=== PATIENT | female | born 1935 | race African-American/Black ===

== ENCOUNTER 2017-09-23 22:18 | Inpatient (IN) | payer MEDICARE, BC ==
[2017-09-24] MEDS ORDERED: ONDANSETRON 4 MG INJ IV (04:00)
[2017-09-24] MEDS ORDERED: NACL 0.9% 3 ML SYG IV (04:00)
[2017-09-24] MEDS ORDERED: NITROGLYCERIN (SL) 0.4 MG TAB SL (04:00)
[2017-09-24] MEDS: PANTOPRAZOLE (EC) 40 MG TAB PO (06:37)
[2017-09-24] MEDS: ALBUTEROL HFA 8 GM INHALER INH (06:38)
[2017-09-24 07:20] LABS: ADD MAN DIFF? NO
[2017-09-24 07:31] LABS: WHITE BLOOD COUNT 3.7 10^3/ul (4.8-10.8)
[2017-09-24 07:31] LABS: BASOPHILS % 0.8 % (0.0-2.0); EOSINOPHILS # 0.2 10^3/ul (0.0-0.5); EOSINOPHILS % 4.3 % (0.0-7.0); HEMATOCRIT 39.5 % (37.0-47.0); HEMOGLOBIN 12.6 g/dl (12.0-16.0); LYMPHOCYTES # 0.9 10^3/ul (0.8-2.9); LYMPHOCYTES % 24.3 % (15.0-51.0); MEAN CORPUSCULAR HEMOGLOBIN 26.6 pg (29.0-33.0); MEAN CORPUSCULAR HGB CONC 31.9 g/dl (32.0-37.0); MEAN CORPUSCULAR VOLUME 83.3 fl (82.0-101.0); MEAN PLATELET VOLUME 12.1 fl (7.4-10.4); MONOCYTE # 0.7 10^3/ul (0.3-0.9); MONOCYTES % 18.4 % (0.0-11.0); NEUTROPHIL # 1.9 10^3/ul (1.6-7.5); NEUTROPHILS % 51.9 % (39.0-77.0); PLATELET COUNT 144 10^3/UL (140-415); RED BLOOD COUNT 4.74 10^6/ul (4.20-5.40); RED CELL DISTRIBUTION WIDTH 15.9 % (11.5-14.5)
[2017-09-24 07:47] LABS: CREATINE KINASE 46 IU/L (23-200)
[2017-09-24 08:00] LABS: CK INDEX 1.4; CK-MB 0.65 ng/ml (0.0-2.4); TROPONIN-I 0.025 ng/ml (0.000-0.120)
[2017-09-24 08:05] LABS: MAGNESIUM 1.8 mg/dl (1.7-2.5)
[2017-09-24 08:08] LABS: ALANINE AMINOTRANSFERASE 22 IU/L (13-69); ALBUMIN 3.4 g/dl (3.3-4.9); ALKALINE PHOSPHATASE 94 IU/L (42-121); ANION GAP 14 (8-16); ASPARTATE AMINO TRANSFERASE 18 IU/L (15-46); BILIRUBIN,INDIRECT 0.3 mg/dl (0-1.1); BILIRUBIN,TOTAL 0.3 mg/dl (0.2-1.3); BLOOD UREA NITROGEN 43 mg/dl (7-20); CALCIUM 9.2 mg/dl (8.4-10.2); CARBON DIOXIDE 31 mmol/L (21-31); CHLORIDE 97 mmol/L (97-110); CHOL/HDL RATIO 2.6 RATIO; CHOLESTEROL 132 mg/dl (100-200); CREATININE 1.67 mg/dl (0.44-1.00); GLUCOSE 155 mg/dl (70-220); HDL CHOLESTEROL 49 mg/dl (33-92); LDL CHOLESTEROL,CALCULATED 65 mg/dl; POTASSIUM 3.9 mmol/L (3.5-5.1); SODIUM 138 mmol/L (135-144); TRIGLYCERIDES 91 mg/dl (0-149)
[2017-09-24] MEDS: METHYLPREDNISOLONE 125 MG INJ IV ×3 (08:52→22:26)
[2017-09-24] MEDS: ASPIRIN 81 MG TAB PO (08:54)
[2017-09-24] MEDS: LISINOPRIL 20 MG TAB PO (08:55)
[2017-09-24] MEDS: METOPROLOL 25 MG TAB PO ×2 (08:55→20:40)
[2017-09-24] MEDS: NIFEdipine (XL) 60 MG TAB PO (08:55)
[2017-09-24] MEDS: HEPARIN 5,000 UNIT/0.5 ML VIAL SC ×2 (08:58→20:38)
[2017-09-24] MEDS ORDERED: metFORMIN 500 MG TAB PO (09:00)
[2017-09-24 10:46] LABS: HEMOGLOBIN A1C 8.2 % (0-5.9)
[2017-09-24] MEDS ORDERED: GLUCOSE GEL 15 GRAM TUBE PO (11:00)
[2017-09-24] MEDS ORDERED: GLUCOSE GEL 15 GRAM TUBE BUCCAL (11:00)
[2017-09-24] MEDS ORDERED: GLUCAGON 1 MG INJ IM (11:00)
[2017-09-24] MEDS ORDERED: DEXTROSE 50% 50 ML SYRINGE IV (11:00)
[2017-09-24 11:06] LABS: CREATINE KINASE 45 IU/L (23-200)
[2017-09-24 11:18] LABS: CK INDEX 1.6; CK-MB 0.71 ng/ml (0.0-2.4); TROPONIN-I 0.022 ng/ml (0.000-0.120)
[2017-09-24] MEDS: DIGOXIN 0.125 MG TAB PO (12:04)
[2017-09-24] MEDS: FAMOTIDINE 20 MG TAB PO (12:04)
[2017-09-24] MEDS: INSULIN ASPART [NOVOLOG] 3 ML PEN SC ×6 (12:09→20:47)
[2017-09-24 16:43] LABS: ADD UMIC YES; UR ASCORBIC ACID NEGATIVE (NEGATIVE); UR BACTERIA FEW /HPF (NONE SEEN); UR BILIRUBIN (Dip) NEGATIVE (NEGATIVE); UR BLOOD (Dip) NEGATIVE (NEGATIVE); UR CLARITY CLEAR (CLEAR); UR COLOR YELLOW (YELLOW); UR GLUCOSE (Dip) 3+ mg/dL (NEGATIVE); UR KETONES (Dip) NEGATIVE (NEGATIVE); UR LEUKOCYTE ESTERASE (Dip) TRACE Leu/ul (NEGATIVE); UR NITRITE (Dip) NEGATIVE (NEGATIVE); UR RBC 0 /HPF (0-5); UR SPECIFIC GRAVITY (Dip) 1.015 (1.003-1.030); UR SQUAMOUS EPITHELIAL CELL FEW /HPF (FEW); UR TOTAL PROTEIN (Dip) NEGATIVE (NEGATIVE); UR UROBILINOGEN (Dip) 1+ mg/dL (NEGATIVE); UR WBC 3 /HPF (0-5)
[2017-09-24 16:51] LABS: SODIUM,URINE RANDOM 45 mmol/L (30-90)
[2017-09-24 16:53] LABS: CREATININE,URINE RANDOM 82.53 mg/dl (20-320)
[2017-09-24 18:46] LABS: TROPONIN-I < 0.012 ng/ml (0.000-0.120)
[2017-09-24 18:47] LABS: DIGOXIN 1.1 ng/ml (1.0-2.0)
[2017-09-24] MEDS ORDERED: INSULIN GLARGINE [LANtus] 3 ML PEN SC (20:00)
[2017-09-24] MEDS: INSULIN GLARGINE [LANtus] 3 ML PEN SC (20:31)
[2017-09-24] MEDS: ALBUTEROL/IPRATROPIUM (NEB) 3 ML AMP HHN (22:44)
[2017-09-25 01:39] LABS: TROPONIN-I 0.016 ng/ml (0.000-0.120)
[2017-09-25] MEDS ORDERED: ACCU-CHEK XX (02:00)
[2017-09-25] MEDS: ACCU-CHEK XX (02:57)
[2017-09-25 05:06] LABS: PROTEIN, TOTAL 5.9 g/dL (6.1-8.1)
[2017-09-25] MEDS: METHYLPREDNISOLONE 125 MG INJ IV (06:31)
[2017-09-25 06:50] LABS: ADD MAN DIFF? NO
[2017-09-25 06:52] LABS: HEMATOCRIT 39.2 % (37.0-47.0); HEMOGLOBIN 12.4 g/dl (12.0-16.0); LYMPHOCYTES # 0.7 10^3/ul (0.8-2.9); LYMPHOCYTES % 12.8 % (15.0-51.0); MEAN CORPUSCULAR HEMOGLOBIN 26.2 pg (29.0-33.0); MEAN CORPUSCULAR HGB CONC 31.6 g/dl (32.0-37.0); MEAN CORPUSCULAR VOLUME 82.9 fl (82.0-101.0); MEAN PLATELET VOLUME 12.5 fl (7.4-10.4); MONOCYTE # 0.1 10^3/ul (0.3-0.9); MONOCYTES % 2.7 % (0.0-11.0); NEUTROPHIL # 4.3 10^3/ul (1.6-7.5); NEUTROPHILS % 84.1 % (39.0-77.0); PLATELET COUNT 161 10^3/UL (140-415); RED BLOOD COUNT 4.73 10^6/ul (4.20-5.40); RED CELL DISTRIBUTION WIDTH 15.6 % (11.5-14.5)
[2017-09-25 06:52] LABS: WHITE BLOOD COUNT 5.2 10^3/ul (4.8-10.8)
[2017-09-25 07:24] LABS: ALANINE AMINOTRANSFERASE 21 IU/L (13-69); ALBUMIN 3.4 g/dl (3.3-4.9); ALBUMIN/GLOBULIN RATIO 1.06; ALKALINE PHOSPHATASE 101 IU/L (42-121); ANION GAP 16 (8-16); ASPARTATE AMINO TRANSFERASE 17 IU/L (15-46); BILIRUBIN,INDIRECT 0.3 mg/dl (0-1.1); BILIRUBIN,TOTAL 0.3 mg/dl (0.2-1.3); BLOOD UREA NITROGEN 47 mg/dl (7-20); CALCIUM 9.5 mg/dl (8.4-10.2); CARBON DIOXIDE 25 mmol/L (21-31); CHLORIDE 100 mmol/L (97-110); CREATININE 1.48 mg/dl (0.44-1.00); POTASSIUM 4.6 mmol/L (3.5-5.1); SODIUM 136 mmol/L (135-144); TOTAL PROTEIN 6.6 g/dl (6.1-8.1)
[2017-09-25 07:25] LABS: TROPONIN-I 0.019 ng/ml (0.000-0.120)
[2017-09-25 07:29] LABS: GLUCOSE 427 mg/dl (70-220)
[2017-09-25 07:48] LABS: PHOSPHORUS 3.6 mg/dl (2.5-4.9)
[2017-09-25 07:48] LABS: MAGNESIUM 2.1 mg/dl (1.7-2.5)
[2017-09-25] MEDS: INSULIN ASPART [NOVOLOG] 3 ML PEN SC ×7 (08:34→20:16)
[2017-09-25] MEDS: NIFEdipine (XL) 60 MG TAB PO (08:35)
[2017-09-25] MEDS: HEPARIN 5,000 UNIT/0.5 ML VIAL SC ×2 (08:35→20:15)
[2017-09-25] MEDS: FAMOTIDINE 20 MG TAB PO (08:35)
[2017-09-25] MEDS: ASPIRIN 81 MG TAB PO (08:36)
[2017-09-25] MEDS: METOPROLOL 25 MG TAB PO ×2 (08:36→20:13)
[2017-09-25] MEDS: morphine 2 MG INJ IV (10:15)
[2017-09-25] MEDS: ALBUTEROL/IPRATROPIUM (NEB) 3 ML AMP HHN ×2 (10:20→23:39)
[2017-09-25] MEDS: DIGOXIN 0.125 MG TAB PO (12:25)
[2017-09-25] MEDS: ACETAMINOPHEN 325 MG TAB PO (12:26)
[2017-09-25] MEDS: FUROSEMIDE 40 MG INJ IV (14:48)
[2017-09-25] MEDS: INSULIN GLARGINE [LANtus] 3 ML PEN SC (20:16)
[2017-09-25] MEDS: ZOLPIDEM 5 MG TAB PO (23:54)
[2017-09-26] MEDS: ACCU-CHEK XX (02:00)
[2017-09-26 07:04] LABS: ADD MAN DIFF? NO
[2017-09-26 07:10] LABS: BASOPHILS % 0.3 % (0.0-2.0); EOSINOPHILS % 0.4 % (0.0-7.0); HEMATOCRIT 38.3 % (37.0-47.0); HEMOGLOBIN 12.1 g/dl (12.0-16.0); LYMPHOCYTES # 1.8 10^3/ul (0.8-2.9); LYMPHOCYTES % 23.8 % (15.0-51.0); MEAN CORPUSCULAR HGB CONC 31.6 g/dl (32.0-37.0); MEAN CORPUSCULAR VOLUME 82.4 fl (82.0-101.0); MEAN PLATELET VOLUME 12.7 fl (7.4-10.4); MONOCYTE # 0.7 10^3/ul (0.3-0.9); MONOCYTES % 9.6 % (0.0-11.0); NEUTROPHIL # 4.9 10^3/ul (1.6-7.5); NEUTROPHILS % 65.5 % (39.0-77.0); PLATELET COUNT 159 10^3/UL (140-415); RED BLOOD COUNT 4.65 10^6/ul (4.20-5.40); RED CELL DISTRIBUTION WIDTH 15.9 % (11.5-14.5)
[2017-09-26 07:10] LABS: WHITE BLOOD COUNT 7.5 10^3/ul (4.8-10.8)
[2017-09-26 07:45] LABS: ALANINE AMINOTRANSFERASE 20 IU/L (13-69); ALBUMIN 3.1 g/dl (3.3-4.9); ALBUMIN/GLOBULIN RATIO 1.14; ALKALINE PHOSPHATASE 74 IU/L (42-121); ANION GAP 13 (8-16); ASPARTATE AMINO TRANSFERASE 19 IU/L (15-46); BILIRUBIN,INDIRECT 0.1 mg/dl (0-1.1); BILIRUBIN,TOTAL 0.1 mg/dl (0.2-1.3); BLOOD UREA NITROGEN 62 mg/dl (7-20); CALCIUM 9.3 mg/dl (8.4-10.2); CARBON DIOXIDE 31 mmol/L (21-31); CHLORIDE 99 mmol/L (97-110); CREATININE 1.48 mg/dl (0.44-1.00); GLUCOSE 102 mg/dl (70-220); POTASSIUM 3.9 mmol/L (3.5-5.1); SODIUM 139 mmol/L (135-144); TOTAL PROTEIN 5.8 g/dl (6.1-8.1)
[2017-09-26] MEDS: ALBUTEROL/IPRATROPIUM (NEB) 3 ML AMP HHN ×3 (07:55→21:23)
[2017-09-26] MEDS: INSULIN ASPART [NOVOLOG] 3 ML PEN SC ×7 (08:00→20:26)
[2017-09-26] MEDS: HEPARIN 5,000 UNIT/0.5 ML VIAL SC ×2 (08:21→20:24)
[2017-09-26] MEDS: METOPROLOL 25 MG TAB PO ×2 (08:31→20:21)
[2017-09-26] MEDS: FAMOTIDINE 20 MG TAB PO (08:31)
[2017-09-26] MEDS: NIFEdipine (XL) 60 MG TAB PO (08:31)
[2017-09-26] MEDS: ASPIRIN 81 MG TAB PO (08:31)
[2017-09-26] MEDS: predniSONE 20 MG TAB PO (08:32)
[2017-09-26] MEDS ORDERED: METHYLPREDNISOLONE 125 MG INJ IV (09:00)
[2017-09-26] MEDS ORDERED: METHYLPREDNISOLONE 40 MG INJ IV (09:00)
[2017-09-26] MEDS: DIGOXIN 0.125 MG TAB PO (12:13)
[2017-09-26] MEDS: FLUTICASONE/VILANTEROL 100-25 INH (18:00)
[2017-09-26] MEDS: BALSAM PERU/CASTOR OIL 60 GM TUBE TOP (20:21)
[2017-09-26] MEDS: INSULIN GLARGINE [LANtus] 3 ML PEN SC (20:29)
[2017-09-26] MEDS ORDERED: SALMETEROL/FLUTICASONE 250/50 INHA INH (21:00)
[2017-09-27] MEDS: ACCU-CHEK XX (02:00)
[2017-09-27] MEDS: ZOLPIDEM 5 MG TAB PO (02:48)
[2017-09-27] MEDS: ALBUTEROL/IPRATROPIUM (NEB) 3 ML AMP HHN ×5 (04:32→20:55)
[2017-09-27 07:17] LABS: ADD MAN DIFF? NO
[2017-09-27 07:30] LABS: ANION GAP 12 (8-16); BLOOD UREA NITROGEN 58 mg/dl (7-20); CALCIUM 8.8 mg/dl (8.4-10.2); CARBON DIOXIDE 29 mmol/L (21-31); CHLORIDE 104 mmol/L (97-110); CREATININE 1.49 mg/dl (0.44-1.00); GLUCOSE 89 mg/dl (70-220); POTASSIUM 4.2 mmol/L (3.5-5.1); SODIUM 141 mmol/L (135-144)
[2017-09-27 07:33] LABS: BASOPHILS % 0.5 % (0.0-2.0); EOSINOPHILS # 0.1 10^3/ul (0.0-0.5); EOSINOPHILS % 2.1 % (0.0-7.0); HEMATOCRIT 36.4 % (37.0-47.0); HEMOGLOBIN 11.7 g/dl (12.0-16.0); LYMPHOCYTES # 2.2 10^3/ul (0.8-2.9); LYMPHOCYTES % 34.9 % (15.0-51.0); MEAN CORPUSCULAR HEMOGLOBIN 26.6 pg (29.0-33.0); MEAN CORPUSCULAR HGB CONC 32.1 g/dl (32.0-37.0); MEAN CORPUSCULAR VOLUME 82.7 fl (82.0-101.0); MONOCYTE # 0.8 10^3/ul (0.3-0.9); MONOCYTES % 11.9 % (0.0-11.0); NEUTROPHIL # 3.2 10^3/ul (1.6-7.5); NEUTROPHILS % 50.3 % (39.0-77.0); PLATELET COUNT 150 10^3/UL (140-415); RED CELL DISTRIBUTION WIDTH 16.2 % (11.5-14.5)
[2017-09-27 07:33] LABS: WHITE BLOOD COUNT 6.3 10^3/ul (4.8-10.8)
[2017-09-27 07:41] LABS: PHOSPHORUS 3.9 mg/dl (2.5-4.9)
[2017-09-27 07:41] LABS: MAGNESIUM 2.1 mg/dl (1.7-2.5)
[2017-09-27] MEDS: INSULIN ASPART [NOVOLOG] 3 ML PEN SC ×7 (08:00→20:39)
[2017-09-27] MEDS: predniSONE 20 MG TAB PO (09:21)
[2017-09-27] MEDS: NIFEdipine (XL) 60 MG TAB PO (09:22)
[2017-09-27] MEDS: FAMOTIDINE 20 MG TAB PO (09:23)
[2017-09-27] MEDS: METOPROLOL 25 MG TAB PO ×2 (09:23→20:29)
[2017-09-27] MEDS: ASPIRIN 81 MG TAB PO (09:23)
[2017-09-27] MEDS: FLUTICASONE/VILANTEROL 100-25 INH (09:24)
[2017-09-27] MEDS: BALSAM PERU/CASTOR OIL 60 GM TUBE TOP ×2 (09:24→20:31)
[2017-09-27] MEDS: ENOXAPARIN 80 MG/0.8 ML SYG SC (09:31)
[2017-09-27] MEDS: DIGOXIN 0.125 MG TAB PO (12:18)
[2017-09-27 14:21] LABS: CREATININE, RANDOM URINE 97 mg/dL (20-320); PROTEIN/CREATININE RATIO 124 mg/g creat (21-161)
[2017-09-27] MEDS ORDERED: METHYLPREDNISOLONE 125 MG INJ IV (15:30)
[2017-09-27] MEDS: METHYLPREDNISOLONE 125 MG INJ IV (17:22)
[2017-09-27] MEDS: NPH, HUMAN INSULIN ISOPHANE 3ML VIAL SC (17:23)
[2017-09-27] MEDS: INSULIN GLARGINE [LANtus] 3 ML PEN SC (20:38)
[2017-09-27 22:39] LABS: ALBUMIN 3.2 g/dL (3.8-4.8); ALPHA-1-GLOBULINS 0.3 g/dL (0.2-0.3); ALPHA-2-GLOBULINS 0.7 g/dL (0.5-0.9); BETA 2 GLOBULINS 0.3 g/dL (0.2-0.5); BETA GLOBULINS 0.5 g/dL (0.4-0.6)
[2017-09-28] MEDS: METHYLPREDNISOLONE 125 MG INJ IV ×3 (01:40→20:15)
[2017-09-28] MEDS: NPH, HUMAN INSULIN ISOPHANE 3ML VIAL SC ×3 (01:50→20:25)
[2017-09-28] MEDS: ACCU-CHEK XX (01:50)
[2017-09-28 08:16] LABS: ADD MAN DIFF? NO
[2017-09-28 08:18] LABS: WHITE BLOOD COUNT 5.7 10^3/ul (4.8-10.8)
[2017-09-28 08:18] LABS: BASOPHILS % 0.2 % (0.0-2.0); HEMATOCRIT 37.1 % (37.0-47.0); HEMOGLOBIN 11.9 g/dl (12.0-16.0); LYMPHOCYTES # 0.7 10^3/ul (0.8-2.9); LYMPHOCYTES % 12.3 % (15.0-51.0); MEAN CORPUSCULAR HEMOGLOBIN 26.3 pg (29.0-33.0); MEAN CORPUSCULAR HGB CONC 32.1 g/dl (32.0-37.0); MEAN CORPUSCULAR VOLUME 81.9 fl (82.0-101.0); MEAN PLATELET VOLUME 12.3 fl (7.4-10.4); MONOCYTE # 0.1 10^3/ul (0.3-0.9); MONOCYTES % 2.3 % (0.0-11.0); NEUTROPHIL # 4.8 10^3/ul (1.6-7.5); NEUTROPHILS % 84.5 % (39.0-77.0); PLATELET COUNT 154 10^3/UL (140-415); RED BLOOD COUNT 4.53 10^6/ul (4.20-5.40); RED CELL DISTRIBUTION WIDTH 16.2 % (11.5-14.5)
[2017-09-28] MEDS: FLUTICASONE/VILANTEROL 100-25 INH (08:30)
[2017-09-28] MEDS: NIFEdipine (XL) 60 MG TAB PO (08:31)
[2017-09-28] MEDS: METOPROLOL 25 MG TAB PO ×2 (08:31→20:15)
[2017-09-28] MEDS: ASPIRIN 81 MG TAB PO (08:31)
[2017-09-28] MEDS: FAMOTIDINE 20 MG TAB PO (08:32)
[2017-09-28] MEDS: INSULIN ASPART [NOVOLOG] 3 ML PEN SC ×7 (08:36→20:26)
[2017-09-28] MEDS: ENOXAPARIN 80 MG/0.8 ML SYG SC (08:36)
[2017-09-28] MEDS: BALSAM PERU/CASTOR OIL 60 GM TUBE TOP ×2 (08:44→20:19)
[2017-09-28 08:52] LABS: ANION GAP 16 (8-16); BLOOD UREA NITROGEN 53 mg/dl (7-20); CALCIUM 9.2 mg/dl (8.4-10.2); CARBON DIOXIDE 28 mmol/L (21-31); CHLORIDE 100 mmol/L (97-110); CREATININE 1.28 mg/dl (0.44-1.00); GLUCOSE 252 mg/dl (70-220); POTASSIUM 5.2 mmol/L (3.5-5.1); SODIUM 139 mmol/L (135-144)
[2017-09-28 08:59] LABS: PHOSPHORUS 3.6 mg/dl (2.5-4.9)
[2017-09-28 08:59] LABS: MAGNESIUM 2.2 mg/dl (1.7-2.5)
[2017-09-28] MEDS: ALBUTEROL/IPRATROPIUM (NEB) 3 ML AMP HHN ×4 (09:40→20:27)
[2017-09-28] MEDS: DIGOXIN 0.125 MG TAB PO (12:39)
[2017-09-28] MEDS: INSULIN GLARGINE [LANtus] 3 ML PEN SC (20:26)
[2017-09-29] MEDS: ACETAMINOPHEN 325 MG TAB PO (01:21)
[2017-09-29] MEDS: ACCU-CHEK XX (01:24)
[2017-09-29] MEDS: ALBUTEROL/IPRATROPIUM (NEB) 3 ML AMP HHN ×5 (01:45→21:18)
[2017-09-29] MEDS: INSULIN ASPART [NOVOLOG] 3 ML PEN SC ×7 (08:08→21:00)
[2017-09-29] MEDS: ENOXAPARIN 80 MG/0.8 ML SYG SC (08:10)
[2017-09-29] MEDS: ASPIRIN 81 MG TAB PO (08:11)
[2017-09-29] MEDS: METOPROLOL 25 MG TAB PO ×2 (08:11→21:08)
[2017-09-29] MEDS: FAMOTIDINE 20 MG TAB PO (08:11)
[2017-09-29] MEDS: METHYLPREDNISOLONE 125 MG INJ IV ×2 (08:11→21:05)
[2017-09-29] MEDS: NPH, HUMAN INSULIN ISOPHANE 3ML VIAL SC ×2 (08:12→21:07)
[2017-09-29] MEDS: NIFEdipine (XL) 30 MG TAB PO (08:19)
[2017-09-29] MEDS: FLUTICASONE/VILANTEROL 100-25 INH (08:19)
[2017-09-29] MEDS ORDERED: hydrALAzine 20 MG INJ IV (09:30)
[2017-09-29 09:31] LABS: ADD MAN DIFF? NO
[2017-09-29 09:40] LABS: WHITE BLOOD COUNT 8.8 10^3/ul (4.8-10.8)
[2017-09-29 09:40] LABS: BASOPHILS % 0.1 % (0.0-2.0); HEMATOCRIT 38.7 % (37.0-47.0); HEMOGLOBIN 12.3 g/dl (12.0-16.0); LYMPHOCYTES # 1.3 10^3/ul (0.8-2.9); LYMPHOCYTES % 15.3 % (15.0-51.0); MEAN CORPUSCULAR HEMOGLOBIN 26.5 pg (29.0-33.0); MEAN CORPUSCULAR HGB CONC 31.8 g/dl (32.0-37.0); MEAN CORPUSCULAR VOLUME 83.2 fl (82.0-101.0); MEAN PLATELET VOLUME 12.1 fl (7.4-10.4); MONOCYTE # 0.5 10^3/ul (0.3-0.9); MONOCYTES % 5.5 % (0.0-11.0); NEUTROPHIL # 6.9 10^3/ul (1.6-7.5); NEUTROPHILS % 78.8 % (39.0-77.0); PLATELET COUNT 168 10^3/UL (140-415); RED BLOOD COUNT 4.65 10^6/ul (4.20-5.40); RED CELL DISTRIBUTION WIDTH 16.3 % (11.5-14.5)
[2017-09-29 10:09] LABS: MAGNESIUM 2.3 mg/dl (1.7-2.5)
[2017-09-29 10:09] LABS: PHOSPHORUS 3.8 mg/dl (2.5-4.9)
[2017-09-29 10:12] LABS: ANION GAP 13 (8-16); BLOOD UREA NITROGEN 52 mg/dl (7-20); CALCIUM 9.5 mg/dl (8.4-10.2); CARBON DIOXIDE 28 mmol/L (21-31); CHLORIDE 104 mmol/L (97-110); CREATININE 1.19 mg/dl (0.44-1.00); GLUCOSE 170 mg/dl (70-220); SODIUM 140 mmol/L (135-144)
[2017-09-29] MEDS: BALSAM PERU/CASTOR OIL 60 GM TUBE TOP ×2 (10:36→21:46)
[2017-09-29] MEDS: morphine LIQ (10 MG/5 ML) CUP PO ×2 (10:36→14:45)
[2017-09-29] MEDS: DILTIAZEM (CD) 120 MG CAP PO ×2 (11:41→21:09)
[2017-09-29] MEDS: DIGOXIN 0.125 MG TAB PO (12:23)
[2017-09-29] MEDS: INSULIN GLARGINE [LANtus] 3 ML PEN SC (21:47)
[2017-09-30] MEDS: ACCU-CHEK XX (02:00)
[2017-09-30] MEDS: ALBUTEROL/IPRATROPIUM (NEB) 3 ML AMP HHN ×5 (03:17→21:02)
[2017-09-30 07:42] LABS: ADD MAN DIFF? NO
[2017-09-30 07:47] LABS: HEMOGLOBIN 12.9 g/dl (12.0-16.0); LYMPHOCYTES # 0.8 10^3/ul (0.8-2.9); LYMPHOCYTES % 10.9 % (15.0-51.0); MEAN CORPUSCULAR HEMOGLOBIN 26.2 pg (29.0-33.0); MEAN CORPUSCULAR HGB CONC 31.5 g/dl (32.0-37.0); MEAN CORPUSCULAR VOLUME 83.3 fl (82.0-101.0); MONOCYTE # 0.2 10^3/ul (0.3-0.9); MONOCYTES % 2.6 % (0.0-11.0); NEUTROPHILS % 85.9 % (39.0-77.0); PLATELET COUNT 189 10^3/UL (140-415); RED BLOOD COUNT 4.92 10^6/ul (4.20-5.40); RED CELL DISTRIBUTION WIDTH 16.7 % (11.5-14.5)
[2017-09-30 08:10] LABS: PHOSPHORUS 4.6 mg/dl (2.5-4.9)
[2017-09-30 08:10] LABS: ANION GAP 16 (8-16); BLOOD UREA NITROGEN 52 mg/dl (7-20); CALCIUM 9.4 mg/dl (8.4-10.2); CARBON DIOXIDE 24 mmol/L (21-31); CHLORIDE 102 mmol/L (97-110); CREATININE 1.26 mg/dl (0.44-1.00); GLUCOSE 376 mg/dl (70-220); MAGNESIUM 2.2 mg/dl (1.7-2.5); POTASSIUM 5.4 mmol/L (3.5-5.1); SODIUM 137 mmol/L (135-144)
[2017-09-30] MEDS: BALSAM PERU/CASTOR OIL 60 GM TUBE TOP ×2 (08:22→20:44)
[2017-09-30] MEDS: FLUTICASONE/VILANTEROL 100-25 INH (08:22)
[2017-09-30] MEDS: FAMOTIDINE 20 MG TAB PO (08:22)
[2017-09-30] MEDS: DILTIAZEM (CD) 120 MG CAP PO ×2 (08:23→20:39)
[2017-09-30] MEDS: ASPIRIN 81 MG TAB PO (08:23)
[2017-09-30] MEDS: METOPROLOL 25 MG TAB PO ×2 (08:23→20:39)
[2017-09-30] MEDS: METHYLPREDNISOLONE 125 MG INJ IV ×2 (08:23→20:37)
[2017-09-30] MEDS: NPH, HUMAN INSULIN ISOPHANE 3ML VIAL SC ×2 (08:24→20:55)
[2017-09-30] MEDS: ENOXAPARIN 80 MG/0.8 ML SYG SC (08:25)
[2017-09-30] MEDS: INSULIN ASPART [NOVOLOG] 3 ML PEN SC ×7 (08:26→20:57)
[2017-09-30] MEDS: DIGOXIN 0.125 MG TAB PO (12:23)
[2017-09-30] MEDS: NA POLYST SULFON 15 GM/60 ML BTL PO (15:01)
[2017-09-30] MEDS: INSULIN GLARGINE [LANtus] 3 ML PEN SC (20:59)
[2017-10-01] MEDS: ACCU-CHEK XX (02:00)
[2017-10-01 06:05] LABS: ADD MAN DIFF? NO
[2017-10-01 06:18] LABS: WHITE BLOOD COUNT 9.5 10^3/ul (4.8-10.8)
[2017-10-01 06:18] LABS: BASOPHILS % 0.1 % (0.0-2.0); HEMATOCRIT 38.7 % (37.0-47.0); HEMOGLOBIN 12.4 g/dl (12.0-16.0); LYMPHOCYTES # 0.8 10^3/ul (0.8-2.9); LYMPHOCYTES % 8.2 % (15.0-51.0); MEAN CORPUSCULAR HEMOGLOBIN 26.4 pg (29.0-33.0); MEAN CORPUSCULAR VOLUME 82.5 fl (82.0-101.0); MEAN PLATELET VOLUME 11.6 fl (7.4-10.4); MONOCYTE # 0.3 10^3/ul (0.3-0.9); MONOCYTES % 3.5 % (0.0-11.0); NEUTROPHIL # 8.4 10^3/ul (1.6-7.5); NEUTROPHILS % 87.5 % (39.0-77.0); PLATELET COUNT 194 10^3/UL (140-415); RED BLOOD COUNT 4.69 10^6/ul (4.20-5.40); RED CELL DISTRIBUTION WIDTH 16.4 % (11.5-14.5)
[2017-10-01 06:52] LABS: PHOSPHORUS 4.1 mg/dl (2.5-4.9)
[2017-10-01 06:52] LABS: MAGNESIUM 2.2 mg/dl (1.7-2.5)
[2017-10-01 07:22] LABS: ANION GAP 18 (8-16); BLOOD UREA NITROGEN 61 mg/dl (7-20); CALCIUM 9.4 mg/dl (8.4-10.2); CARBON DIOXIDE 25 mmol/L (21-31); CHLORIDE 100 mmol/L (97-110); CREATININE 1.37 mg/dl (0.44-1.00); GLUCOSE 215 mg/dl (70-220); POTASSIUM 4.9 mmol/L (3.5-5.1); SODIUM 138 mmol/L (135-144)
[2017-10-01] MEDS: INSULIN ASPART [NOVOLOG] 3 ML PEN SC ×7 (08:31→21:00)
[2017-10-01] MEDS: NPH, HUMAN INSULIN ISOPHANE 3ML VIAL SC ×2 (08:32→21:56)
[2017-10-01] MEDS: ENOXAPARIN 80 MG/0.8 ML SYG SC (08:33)
[2017-10-01] MEDS: BALSAM PERU/CASTOR OIL 60 GM TUBE TOP ×2 (08:35→20:29)
[2017-10-01] MEDS: FLUTICASONE/VILANTEROL 100-25 INH (08:35)
[2017-10-01] MEDS: ASPIRIN 81 MG TAB PO (08:36)
[2017-10-01] MEDS: METOPROLOL 25 MG TAB PO ×2 (08:37→20:28)
[2017-10-01] MEDS: METHYLPREDNISOLONE 125 MG INJ IV ×2 (08:38→20:26)
[2017-10-01] MEDS: FAMOTIDINE 20 MG TAB PO (09:12)
[2017-10-01] MEDS: DILTIAZEM (CD) 120 MG CAP PO ×2 (09:12→20:27)
[2017-10-01] MEDS: ALBUTEROL/IPRATROPIUM (NEB) 3 ML AMP HHN ×4 (09:47→21:47)
[2017-10-01] MEDS: DIGOXIN 0.125 MG TAB PO (12:17)
[2017-10-01] MEDS: LINAGLIPTIN 5 MG TABLET PO (13:21)
[2017-10-01] MEDS: ACETAMINOPHEN 325 MG TAB PO (13:21)
[2017-10-01] MEDS: INSULIN GLARGINE [LANtus] 3 ML PEN SC (20:25)
[2017-10-02] MEDS: ACCU-CHEK XX (02:00)
[2017-10-02 05:46] LABS: ADD MAN DIFF? NO
[2017-10-02 05:56] LABS: BASOPHILS % 0.1 % (0.0-2.0); HEMATOCRIT 38.1 % (37.0-47.0); HEMOGLOBIN 12.2 g/dl (12.0-16.0); LYMPHOCYTES # 0.9 10^3/ul (0.8-2.9); LYMPHOCYTES % 9.8 % (15.0-51.0); MEAN CORPUSCULAR HEMOGLOBIN 26.4 pg (29.0-33.0); MEAN CORPUSCULAR VOLUME 82.5 fl (82.0-101.0); MONOCYTE # 0.2 10^3/ul (0.3-0.9); MONOCYTES % 2.7 % (0.0-11.0); NEUTROPHIL # 7.8 10^3/ul (1.6-7.5); NEUTROPHILS % 86.5 % (39.0-77.0); PLATELET COUNT 196 10^3/UL (140-415); RED BLOOD COUNT 4.62 10^6/ul (4.20-5.40); RED CELL DISTRIBUTION WIDTH 16.4 % (11.5-14.5)
[2017-10-02] MEDS: ALBUTEROL/IPRATROPIUM (NEB) 3 ML AMP HHN ×5 (05:59→20:29)
[2017-10-02 06:32] LABS: ANION GAP 12 (8-16); BLOOD UREA NITROGEN 62 mg/dl (7-20); CALCIUM 9.2 mg/dl (8.4-10.2); CARBON DIOXIDE 25 mmol/L (21-31); CHLORIDE 105 mmol/L (97-110); CREATININE 1.23 mg/dl (0.44-1.00); GLUCOSE 96 mg/dl (70-220); POTASSIUM 5.1 mmol/L (3.5-5.1); SODIUM 137 mmol/L (135-144)
[2017-10-02 06:38] LABS: MAGNESIUM 2.3 mg/dl (1.7-2.5)
[2017-10-02 06:38] LABS: PHOSPHORUS 3.8 mg/dl (2.5-4.9)
[2017-10-02] MEDS: INSULIN ASPART [NOVOLOG] 3 ML PEN SC ×7 (08:00→21:00)
[2017-10-02] MEDS: FAMOTIDINE 20 MG TAB PO (08:10)
[2017-10-02] MEDS: LINAGLIPTIN 5 MG TABLET PO (08:10)
[2017-10-02] MEDS: METHYLPREDNISOLONE 125 MG INJ IV ×2 (08:10→21:01)
[2017-10-02] MEDS: ASPIRIN 81 MG TAB PO (08:11)
[2017-10-02] MEDS: METOPROLOL 25 MG TAB PO ×2 (08:12→20:59)
[2017-10-02] MEDS: DILTIAZEM (CD) 120 MG CAP PO ×2 (08:12→21:29)
[2017-10-02] MEDS: ENOXAPARIN 80 MG/0.8 ML SYG SC (08:16)
[2017-10-02] MEDS: NPH, HUMAN INSULIN ISOPHANE 3ML VIAL SC ×2 (08:23→21:08)
[2017-10-02] MEDS: BALSAM PERU/CASTOR OIL 60 GM TUBE TOP ×2 (08:38→21:09)
[2017-10-02] MEDS: FLUTICASONE/VILANTEROL 100-25 INH (08:51)
[2017-10-02] MEDS: morphine LIQ (10 MG/5 ML) CUP PO ×2 (11:57→16:16)
[2017-10-02] MEDS: DIGOXIN 0.125 MG TAB PO (14:56)
[2017-10-02] MEDS: INSULIN GLARGINE [LANtus] 3 ML PEN SC (21:07)
[2017-10-03] MEDS: ACCU-CHEK XX (02:00)
[2017-10-03 06:20] LABS: ADD MAN DIFF? NO
[2017-10-03] MEDS: morphine LIQ (10 MG/5 ML) CUP PO (06:28)
[2017-10-03 06:32] LABS: BASOPHILS % 0.1 % (0.0-2.0); HEMATOCRIT 39.9 % (37.0-47.0); LYMPHOCYTES # 0.7 10^3/ul (0.8-2.9); LYMPHOCYTES % 6.4 % (15.0-51.0); MEAN CORPUSCULAR HEMOGLOBIN 26.6 pg (29.0-33.0); MEAN CORPUSCULAR HGB CONC 32.6 g/dl (32.0-37.0); MEAN CORPUSCULAR VOLUME 81.6 fl (82.0-101.0); MEAN PLATELET VOLUME 11.3 fl (7.4-10.4); MONOCYTE # 0.4 10^3/ul (0.3-0.9); MONOCYTES % 3.6 % (0.0-11.0); NEUTROPHIL # 9.5 10^3/ul (1.6-7.5); NEUTROPHILS % 88.8 % (39.0-77.0); PLATELET COUNT 228 10^3/UL (140-415); RED BLOOD COUNT 4.89 10^6/ul (4.20-5.40); RED CELL DISTRIBUTION WIDTH 16.7 % (11.5-14.5)
[2017-10-03 06:32] LABS: WHITE BLOOD COUNT 10.7 10^3/ul (4.8-10.8)
[2017-10-03 07:01] LABS: ANION GAP 17 (8-16); BLOOD UREA NITROGEN 62 mg/dl (7-20); CALCIUM 9.5 mg/dl (8.4-10.2); CARBON DIOXIDE 23 mmol/L (21-31); CHLORIDE 101 mmol/L (97-110); CREATININE 1.38 mg/dl (0.44-1.00); GLUCOSE 276 mg/dl (70-220); SODIUM 136 mmol/L (135-144)
[2017-10-03 07:21] LABS: POTASSIUM 5.2 mmol/L (3.5-5.1)
[2017-10-03 08:10] LABS: PHOSPHORUS 4.2 mg/dl (2.5-4.9)
[2017-10-03 08:10] LABS: MAGNESIUM 2.5 mg/dl (1.7-2.5)
[2017-10-03] MEDS: INSULIN ASPART [NOVOLOG] 3 ML PEN SC ×8 (08:19→21:00)
[2017-10-03] MEDS: NPH, HUMAN INSULIN ISOPHANE 3ML VIAL SC ×2 (08:21→21:30)
[2017-10-03] MEDS: ENOXAPARIN 80 MG/0.8 ML SYG SC (08:22)
[2017-10-03] MEDS: METHYLPREDNISOLONE 125 MG INJ IV ×2 (08:24→21:00)
[2017-10-03] MEDS: METOPROLOL 25 MG TAB PO ×2 (08:25→21:02)
[2017-10-03] MEDS: ASPIRIN 81 MG TAB PO (08:25)
[2017-10-03] MEDS: DILTIAZEM (CD) 120 MG CAP PO ×2 (08:26→21:01)
[2017-10-03] MEDS: LINAGLIPTIN 5 MG TABLET PO (08:26)
[2017-10-03] MEDS: FLUTICASONE/VILANTEROL 100-25 INH (08:27)
[2017-10-03] MEDS: BALSAM PERU/CASTOR OIL 60 GM TUBE TOP ×2 (08:27→21:37)
[2017-10-03] MEDS: FAMOTIDINE 20 MG TAB PO (08:29)
[2017-10-03] MEDS: ALBUTEROL/IPRATROPIUM (NEB) 3 ML AMP HHN ×5 (09:04→21:07)
[2017-10-03] MEDS: DIGOXIN 0.125 MG TAB PO (12:36)
[2017-10-03] MEDS: INSULIN GLARGINE [LANtus] 3 ML PEN SC (21:30)
[2017-10-04] MEDS: ACCU-CHEK XX (02:00)
[2017-10-04] MEDS: INSULIN ASPART [NOVOLOG] 3 ML PEN SC ×7 (08:00→20:07)
[2017-10-04] MEDS: ENOXAPARIN 80 MG/0.8 ML SYG SC (08:28)
[2017-10-04] MEDS: NPH, HUMAN INSULIN ISOPHANE 3ML VIAL SC ×2 (08:29→21:06)
[2017-10-04] MEDS: METHYLPREDNISOLONE 125 MG INJ IV (08:31)
[2017-10-04] MEDS: FLUTICASONE/VILANTEROL 100-25 INH (08:37)
[2017-10-04] MEDS: LINAGLIPTIN 5 MG TABLET PO (08:38)
[2017-10-04] MEDS: FAMOTIDINE 20 MG TAB PO (08:38)
[2017-10-04] MEDS: ASPIRIN 81 MG TAB PO (08:38)
[2017-10-04] MEDS: METOPROLOL 25 MG TAB PO ×2 (08:39→20:09)
[2017-10-04] MEDS: DILTIAZEM (CD) 120 MG CAP PO ×2 (08:39→20:09)
[2017-10-04] MEDS: BALSAM PERU/CASTOR OIL 60 GM TUBE TOP ×2 (08:41→20:11)
[2017-10-04] MEDS: ALBUTEROL/IPRATROPIUM (NEB) 3 ML AMP HHN ×4 (10:17→20:35)
[2017-10-04] MEDS: DIGOXIN 0.125 MG TAB PO (13:53)
[2017-10-04] MEDS: INSULIN GLARGINE [LANtus] 3 ML PEN SC (20:05)
[2017-10-04] MEDS: predniSONE 10 MG TAB PO (20:08)
[2017-10-05] MEDS: ACCU-CHEK XX (02:00)
[2017-10-05] MEDS: INSULIN ASPART [NOVOLOG] 3 ML PEN SC ×7 (08:00→20:41)
[2017-10-05] MEDS: LINAGLIPTIN 5 MG TABLET PO (08:33)
[2017-10-05] MEDS: FAMOTIDINE 20 MG TAB PO (08:33)
[2017-10-05] MEDS: ASPIRIN 81 MG TAB PO (08:33)
[2017-10-05] MEDS: FLUTICASONE/VILANTEROL 100-25 INH (08:33)
[2017-10-05] MEDS: predniSONE 10 MG TAB PO ×2 (08:34→20:36)
[2017-10-05] MEDS: NPH, HUMAN INSULIN ISOPHANE 3ML VIAL SC ×2 (08:35→20:45)
[2017-10-05] MEDS: ENOXAPARIN 80 MG/0.8 ML SYG SC (08:37)
[2017-10-05] MEDS: DILTIAZEM (CD) 120 MG CAP PO ×2 (08:37→20:37)
[2017-10-05] MEDS: METOPROLOL 25 MG TAB PO ×2 (08:38→20:37)
[2017-10-05] MEDS: BALSAM PERU/CASTOR OIL 60 GM TUBE TOP ×2 (08:44→20:38)
[2017-10-05] MEDS: ALBUTEROL/IPRATROPIUM (NEB) 3 ML AMP HHN ×4 (09:56→21:04)
[2017-10-05] MEDS: GUAIFENESIN LA 600 MG TABSR PO ×2 (12:34→20:36)
[2017-10-05] MEDS: DIGOXIN 0.125 MG TAB PO (14:18)
[2017-10-05] MEDS: FUROSEMIDE 20 MG INJ IV (14:44)
[2017-10-05] MEDS: INSULIN GLARGINE [LANtus] 3 ML PEN SC ×2 (20:00→20:52)
[2017-10-06] MEDS: ACCU-CHEK XX (01:23)
[2017-10-06 05:07] LABS: AADO2 Arterial 41.9 mmHg (7.0-24.0); Allen Test ACCEPTAB; Arterial Base Excess 1.9 mmol/L (-3.0-3); Arterial Blood Gas Oxygen Sat 93.5 mmHG (95.0-100.0); Arterial COHb 0.6 % (0.0-3.0); Arterial Fraction of Oxyhgb 92.8 % (93.0-99.0); Arterial HCO3 25.4 mmol/L (22.0-26.0); Arterial MetHb 0.2 % (0.0-1.5); Arterial Total Hemglobin 14.2 g/dl (12.0-18.0); Arterial pCO2 36.1 mmhg (35-45); MODE ROOM AIR; Site Right Radial
[2017-10-06 06:32] LABS: ADD MAN DIFF? NO
[2017-10-06 06:34] LABS: BASOPHILS % 0.1 % (0.0-2.0); HEMATOCRIT 37.5 % (37.0-47.0); HEMOGLOBIN 12.3 g/dl (12.0-16.0); LYMPHOCYTES # 0.7 10^3/ul (0.8-2.9); LYMPHOCYTES % 5.1 % (15.0-51.0); MEAN CORPUSCULAR HEMOGLOBIN 26.6 pg (29.0-33.0); MEAN CORPUSCULAR HGB CONC 32.8 g/dl (32.0-37.0); MEAN PLATELET VOLUME 10.9 fl (7.4-10.4); MONOCYTE # 0.5 10^3/ul (0.3-0.9); MONOCYTES % 3.7 % (0.0-11.0); NEUTROPHIL # 12.6 10^3/ul (1.6-7.5); PLATELET COUNT 249 10^3/UL (140-415); RED BLOOD COUNT 4.63 10^6/ul (4.20-5.40); RED CELL DISTRIBUTION WIDTH 17.1 % (11.5-14.5)
[2017-10-06 06:54] LABS: ANION GAP 12 (8-16); BLOOD UREA NITROGEN 61 mg/dl (7-20); CALCIUM 9.1 mg/dl (8.4-10.2); CARBON DIOXIDE 25 mmol/L (21-31); CHLORIDE 106 mmol/L (97-110); CREATININE 1.28 mg/dl (0.44-1.00); GLUCOSE 99 mg/dl (70-220); POTASSIUM 5.1 mmol/L (3.5-5.1); SODIUM 138 mmol/L (135-144)
[2017-10-06] MEDS: INSULIN ASPART [NOVOLOG] 3 ML PEN SC ×8 (08:00→20:55)
[2017-10-06] MEDS: FAMOTIDINE 20 MG TAB PO (08:06)
[2017-10-06] MEDS: GUAIFENESIN LA 600 MG TABSR PO ×2 (08:06→20:47)
[2017-10-06] MEDS: DILTIAZEM (CD) 120 MG CAP PO ×2 (08:06→20:47)
[2017-10-06] MEDS: ENOXAPARIN 80 MG/0.8 ML SYG SC (08:06)
[2017-10-06] MEDS: METOPROLOL 25 MG TAB PO ×2 (08:07→20:47)
[2017-10-06] MEDS: FUROSEMIDE 20 MG INJ IV ×2 (08:07→17:09)
[2017-10-06] MEDS: ASPIRIN 81 MG TAB PO (08:07)
[2017-10-06] MEDS: BALSAM PERU/CASTOR OIL 60 GM TUBE TOP ×2 (08:08→20:48)
[2017-10-06] MEDS: FLUTICASONE/VILANTEROL 100-25 INH (08:18)
[2017-10-06] MEDS: ALBUTEROL/IPRATROPIUM (NEB) 3 ML AMP HHN ×4 (09:16→20:37)
[2017-10-06] MEDS: predniSONE 10 MG TAB PO ×2 (09:28→20:46)
[2017-10-06] MEDS: NPH, HUMAN INSULIN ISOPHANE 3ML VIAL SC ×2 (09:29→20:59)
[2017-10-06] MEDS: LINAGLIPTIN 5 MG TABLET PO (09:29)
[2017-10-06] MEDS: DIGOXIN 0.125 MG TAB PO (13:25)
[2017-10-06] MEDS ORDERED: FUROSEMIDE 20 MG INJ (16:43)
[2017-10-06] MEDS: INSULIN GLARGINE [LANtus] 3 ML PEN SC (20:09)
[2017-10-07] MEDS: ACCU-CHEK XX ×2 (02:00→23:14)
[2017-10-07] MEDS: CEPASTAT LOZENGE MT (04:55)
[2017-10-07] MEDS: FUROSEMIDE 20 MG INJ IV ×2 (05:56→17:52)
[2017-10-07] MEDS: FLUTICASONE/VILANTEROL 100-25 INH (08:27)
[2017-10-07] MEDS: FAMOTIDINE 20 MG TAB PO (08:29)
[2017-10-07] MEDS: METOPROLOL 25 MG TAB PO ×2 (08:29→21:01)
[2017-10-07] MEDS: DILTIAZEM (CD) 120 MG CAP PO ×2 (08:30→21:03)
[2017-10-07] MEDS: LINAGLIPTIN 5 MG TABLET PO (08:30)
[2017-10-07] MEDS: GUAIFENESIN LA 600 MG TABSR PO ×2 (08:30→21:01)
[2017-10-07] MEDS: ASPIRIN 81 MG TAB PO (08:30)
[2017-10-07] MEDS: predniSONE 10 MG TAB PO ×2 (08:31→21:01)
[2017-10-07] MEDS: ENOXAPARIN 80 MG/0.8 ML SYG SC (08:32)
[2017-10-07] MEDS: NPH, HUMAN INSULIN ISOPHANE 3ML VIAL SC ×2 (08:33→21:12)
[2017-10-07] MEDS: INSULIN ASPART [NOVOLOG] 3 ML PEN SC ×7 (08:34→20:56)
[2017-10-07] MEDS: BALSAM PERU/CASTOR OIL 60 GM TUBE TOP ×2 (08:35→21:03)
[2017-10-07] MEDS: ALBUTEROL/IPRATROPIUM (NEB) 3 ML AMP HHN ×4 (09:25→21:54)
[2017-10-07] MEDS: DIGOXIN 0.125 MG TAB PO (13:01)
[2017-10-07] MEDS: ACETAMINOPHEN 325 MG TAB PO (13:39)
[2017-10-07] MEDS: INSULIN GLARGINE [LANtus] 3 ML PEN SC (20:59)
[2017-10-08] MEDS: ACETAMINOPHEN 325 MG TAB PO (02:56)
[2017-10-08] MEDS: FUROSEMIDE 20 MG INJ IV ×2 (05:49→17:17)
[2017-10-08 07:11] LABS: ALBUMIN 3.1 g/dl (3.3-4.9); ANION GAP 12 (8-16); BLOOD UREA NITROGEN 72 mg/dl (7-20); CALCIUM 9.2 mg/dl (8.4-10.2); CARBON DIOXIDE 29 mmol/L (21-31); CHLORIDE 102 mmol/L (97-110); CREATININE 1.46 mg/dl (0.44-1.00); GLUCOSE 81 mg/dl (70-220); MAGNESIUM 2.1 mg/dl (1.7-2.5); PHOSPHORUS 4.4 mg/dl (2.5-4.9); POTASSIUM 4.8 mmol/L (3.5-5.1)
[2017-10-08 07:48] LABS: SODIUM 138 mmol/L (135-144)
[2017-10-08] MEDS: predniSONE 10 MG TAB PO ×2 (08:22→20:17)
[2017-10-08] MEDS: DILTIAZEM (CD) 120 MG CAP PO ×2 (08:22→20:19)
[2017-10-08] MEDS: METOPROLOL 25 MG TAB PO ×2 (08:22→20:18)
[2017-10-08] MEDS: GUAIFENESIN LA 600 MG TABSR PO ×2 (08:22→20:15)
[2017-10-08] MEDS: ASPIRIN 81 MG TAB PO (08:23)
[2017-10-08] MEDS: FAMOTIDINE 20 MG TAB PO (08:23)
[2017-10-08] MEDS: LINAGLIPTIN 5 MG TABLET PO (08:23)
[2017-10-08] MEDS: FLUTICASONE/VILANTEROL 100-25 INH (08:23)
[2017-10-08] MEDS: BALSAM PERU/CASTOR OIL 60 GM TUBE TOP ×3 (08:24→20:19)
[2017-10-08] MEDS: ALBUTEROL/IPRATROPIUM (NEB) 3 ML AMP HHN ×4 (08:26→21:11)
[2017-10-08] MEDS: NPH, HUMAN INSULIN ISOPHANE 3ML VIAL SC ×2 (08:28→20:22)
[2017-10-08] MEDS: INSULIN ASPART [NOVOLOG] 3 ML PEN SC ×7 (08:29→20:12)
[2017-10-08] MEDS: ENOXAPARIN 80 MG/0.8 ML SYG SC (08:30)
[2017-10-08] MEDS: DIGOXIN 0.125 MG TAB PO (14:36)
[2017-10-08] MEDS: INSULIN GLARGINE [LANtus] 3 ML PEN SC (20:00)
[2017-10-09] MEDS: CEPASTAT LOZENGE MT ×2 (01:27→16:36)
[2017-10-09] MEDS: ACCU-CHEK XX (02:00)
[2017-10-09] MEDS: FUROSEMIDE 20 MG INJ IV ×2 (06:00→17:19)
[2017-10-09] MEDS: INSULIN ASPART [NOVOLOG] 3 ML PEN SC ×7 (08:15→21:02)
[2017-10-09] MEDS: ENOXAPARIN 80 MG/0.8 ML SYG SC (08:17)
[2017-10-09] MEDS: NPH, HUMAN INSULIN ISOPHANE 3ML VIAL SC ×2 (08:18→21:01)
[2017-10-09] MEDS: predniSONE 10 MG TAB PO ×2 (08:29→21:04)
[2017-10-09] MEDS: DILTIAZEM (CD) 120 MG CAP PO ×2 (08:31→21:04)
[2017-10-09] MEDS: ASPIRIN 81 MG TAB PO (08:31)
[2017-10-09] MEDS: FAMOTIDINE 20 MG TAB PO (08:31)
[2017-10-09] MEDS: GUAIFENESIN LA 600 MG TABSR PO ×2 (08:31→21:04)
[2017-10-09] MEDS: METOPROLOL 25 MG TAB PO ×2 (08:31→21:04)
[2017-10-09] MEDS: LINAGLIPTIN 5 MG TABLET PO (08:31)
[2017-10-09] MEDS: FLUTICASONE/VILANTEROL 100-25 INH (08:32)
[2017-10-09] MEDS: BALSAM PERU/CASTOR OIL 60 GM TUBE TOP ×2 (08:33→21:05)
[2017-10-09] MEDS: ALBUTEROL/IPRATROPIUM (NEB) 3 ML AMP HHN ×4 (09:20→20:44)
[2017-10-09] MEDS: DIGOXIN 0.125 MG TAB PO (12:51)
[2017-10-09] MEDS: INSULIN GLARGINE [LANtus] 3 ML PEN SC (21:03)
[2017-10-10] MEDS: ACCU-CHEK XX (02:00)
[2017-10-10] MEDS: FUROSEMIDE 20 MG INJ IV ×2 (06:03→17:54)
[2017-10-10] MEDS: INSULIN ASPART [NOVOLOG] 3 ML PEN SC ×7 (08:00→21:02)
[2017-10-10] MEDS: ALBUTEROL/IPRATROPIUM (NEB) 3 ML AMP HHN ×4 (08:42→20:33)
[2017-10-10] MEDS: ENOXAPARIN 80 MG/0.8 ML SYG SC (09:21)
[2017-10-10] MEDS: NPH, HUMAN INSULIN ISOPHANE 3ML VIAL SC ×2 (09:24→20:59)
[2017-10-10] MEDS: FLUTICASONE/VILANTEROL 100-25 INH (09:25)
[2017-10-10] MEDS: METOPROLOL 25 MG TAB PO ×2 (09:27→20:54)
[2017-10-10] MEDS: predniSONE 10 MG TAB PO ×2 (09:27→20:54)
[2017-10-10] MEDS: DILTIAZEM (CD) 120 MG CAP PO ×2 (09:28→20:53)
[2017-10-10] MEDS: GUAIFENESIN LA 600 MG TABSR PO ×2 (09:28→20:53)
[2017-10-10] MEDS: LINAGLIPTIN 5 MG TABLET PO (09:28)
[2017-10-10] MEDS: ASPIRIN 81 MG TAB PO (09:28)
[2017-10-10] MEDS: FAMOTIDINE 20 MG TAB PO (09:28)
[2017-10-10] MEDS: BALSAM PERU/CASTOR OIL 60 GM TUBE TOP ×2 (09:29→20:55)
[2017-10-10] MEDS: DIGOXIN 0.125 MG TAB PO (13:09)
[2017-10-10] MEDS: INSULIN GLARGINE [LANtus] 3 ML PEN SC (21:00)
[2017-10-11] MEDS: ACCU-CHEK XX (02:00)
[2017-10-11] MEDS: INSULIN ASPART [NOVOLOG] 3 ML PEN SC ×7 (02:39→21:08)
[2017-10-11] MEDS: FUROSEMIDE 20 MG INJ IV (05:38)
[2017-10-11] MEDS: ENOXAPARIN 80 MG/0.8 ML SYG SC (08:17)
[2017-10-11] MEDS: NPH, HUMAN INSULIN ISOPHANE 3ML VIAL SC ×2 (08:18→21:13)
[2017-10-11] MEDS: ASPIRIN 81 MG TAB PO (08:20)
[2017-10-11] MEDS: FLUTICASONE/VILANTEROL 100-25 INH (08:20)
[2017-10-11] MEDS: METOPROLOL 25 MG TAB PO ×2 (08:21→21:01)
[2017-10-11] MEDS: LINAGLIPTIN 5 MG TABLET PO (08:21)
[2017-10-11] MEDS: GUAIFENESIN LA 600 MG TABSR PO ×2 (08:21→21:01)
[2017-10-11] MEDS: FAMOTIDINE 20 MG TAB PO (08:21)
[2017-10-11] MEDS: DILTIAZEM (CD) 120 MG CAP PO ×2 (08:22→21:01)
[2017-10-11] MEDS: predniSONE 10 MG TAB PO ×2 (08:22→21:01)
[2017-10-11] MEDS: BALSAM PERU/CASTOR OIL 60 GM TUBE TOP ×2 (08:27→21:13)
[2017-10-11] MEDS: ALBUTEROL/IPRATROPIUM (NEB) 3 ML AMP HHN (08:30)
[2017-10-11] MEDS: TIOTROPIUM 18 MCG CAPSULE INHA DEV INH (12:31)
[2017-10-11] MEDS: DIGOXIN 0.125 MG TAB PO (12:31)
[2017-10-11] MEDS: FUROSEMIDE 40 MG TAB PO (17:23)
[2017-10-11] MEDS: INSULIN GLARGINE [LANtus] 3 ML PEN SC (21:07)
[2017-10-11] MEDS: morphine LIQ (10 MG/5 ML) CUP PO (23:45)
[2017-10-12] MEDS: ACCU-CHEK XX (02:00)
[2017-10-12] MEDS: FUROSEMIDE 40 MG TAB PO ×2 (05:49→17:32)
[2017-10-12 05:51] LABS: ADD MAN DIFF? NO
[2017-10-12 05:56] LABS: WHITE BLOOD COUNT 12.5 10^3/ul (4.8-10.8)
[2017-10-12 05:56] LABS: BASOPHILS % 0.1 % (0.0-2.0); HEMOGLOBIN 12.4 g/dl (12.0-16.0); LYMPHOCYTES # 0.8 10^3/ul (0.8-2.9); LYMPHOCYTES % 6.1 % (15.0-51.0); MEAN CORPUSCULAR HEMOGLOBIN 26.3 pg (29.0-33.0); MEAN CORPUSCULAR HGB CONC 32.6 g/dl (32.0-37.0); MEAN CORPUSCULAR VOLUME 80.5 fl (82.0-101.0); MEAN PLATELET VOLUME 11.2 fl (7.4-10.4); MONOCYTE # 0.6 10^3/ul (0.3-0.9); MONOCYTES % 4.7 % (0.0-11.0); NEUTROPHILS % 88.1 % (39.0-77.0); PLATELET COUNT 244 10^3/UL (140-415); RED BLOOD COUNT 4.72 10^6/ul (4.20-5.40); RED CELL DISTRIBUTION WIDTH 17.5 % (11.5-14.5)
[2017-10-12 06:18] LABS: ANION GAP 9 (8-16); BLOOD UREA NITROGEN 72 mg/dl (7-20); CALCIUM 9.2 mg/dl (8.4-10.2); CARBON DIOXIDE 33 mmol/L (21-31); CHLORIDE 101 mmol/L (97-110); CREATININE 1.19 mg/dl (0.44-1.00); GLUCOSE 115 mg/dl (70-220); MAGNESIUM 2.1 mg/dl (1.7-2.5); PHOSPHORUS 3.8 mg/dl (2.5-4.9); POTASSIUM 4.8 mmol/L (3.5-5.1); SODIUM 138 mmol/L (135-144)
[2017-10-12] MEDS: INSULIN ASPART [NOVOLOG] 3 ML PEN SC ×8 (08:00→21:41)
[2017-10-12] MEDS: LINAGLIPTIN 5 MG TABLET PO (08:15)
[2017-10-12] MEDS: FAMOTIDINE 20 MG TAB PO (08:15)
[2017-10-12] MEDS: TIOTROPIUM 18 MCG CAPSULE INHA DEV INH (08:15)
[2017-10-12] MEDS: FLUTICASONE/VILANTEROL 100-25 INH (08:15)
[2017-10-12] MEDS: ASPIRIN 81 MG TAB PO (08:15)
[2017-10-12] MEDS: GUAIFENESIN LA 600 MG TABSR PO ×2 (08:16→21:38)
[2017-10-12] MEDS: DILTIAZEM (CD) 120 MG CAP PO ×2 (08:16→21:39)
[2017-10-12] MEDS: ENOXAPARIN 80 MG/0.8 ML SYG SC (08:17)
[2017-10-12] MEDS: METOPROLOL 25 MG TAB PO ×2 (08:17→21:38)
[2017-10-12] MEDS: BALSAM PERU/CASTOR OIL 60 GM TUBE TOP ×2 (08:18→23:19)
[2017-10-12] MEDS: predniSONE 10 MG TAB PO (12:13)
[2017-10-12] MEDS: DIGOXIN 0.125 MG TAB PO (14:59)
[2017-10-12] MEDS: INSULIN GLARGINE [LANtus] 3 ML PEN SC (21:42)
[2017-10-13] MEDS: ACCU-CHEK XX (02:00)
[2017-10-13] MEDS: morphine LIQ (10 MG/5 ML) CUP PO (05:31)
[2017-10-13] MEDS: FUROSEMIDE 40 MG TAB PO ×2 (05:32→17:43)
[2017-10-13] MEDS: INSULIN ASPART [NOVOLOG] 3 ML PEN SC ×7 (08:00→21:00)
[2017-10-13] MEDS: DEXTROSE 50% 50 ML SYRINGE IV (08:34)
[2017-10-13] MEDS: METOPROLOL 25 MG TAB PO ×2 (09:00→22:05)
[2017-10-13] MEDS: DILTIAZEM (CD) 120 MG CAP PO ×2 (09:00→22:05)
[2017-10-13 09:22] LABS: GLUCOSE 51 mg/dl (70-220)
[2017-10-13] MEDS: ASPIRIN 81 MG TAB PO (09:52)
[2017-10-13] MEDS: FLUTICASONE/VILANTEROL 100-25 INH (09:52)
[2017-10-13] MEDS: TIOTROPIUM 18 MCG CAPSULE INHA DEV INH (09:53)
[2017-10-13] MEDS: predniSONE 10 MG TAB PO (09:53)
[2017-10-13] MEDS: LINAGLIPTIN 5 MG TABLET PO (09:53)
[2017-10-13] MEDS: GUAIFENESIN LA 600 MG TABSR PO ×2 (09:53→21:59)
[2017-10-13] MEDS: FAMOTIDINE 20 MG TAB PO (09:53)
[2017-10-13] MEDS: ENOXAPARIN 80 MG/0.8 ML SYG SC (10:14)
[2017-10-13] MEDS: BALSAM PERU/CASTOR OIL 60 GM TUBE TOP ×2 (10:16→22:08)
[2017-10-13] MEDS: DIGOXIN 0.125 MG TAB PO (14:23)
[2017-10-13] MEDS: VALACYCLOVIR 500 MG TAB PO (17:43)
[2017-10-13] MEDS ORDERED: INSULIN GLARGINE [LANtus] 3 ML PEN SC (20:00)
[2017-10-13] MEDS: GLUCOSE GEL 15 GRAM TUBE PO (20:52)
[2017-10-14] MEDS: ACCU-CHEK XX (02:00)
[2017-10-14] MEDS: FUROSEMIDE 40 MG TAB PO ×2 (05:53→17:15)
[2017-10-14] MEDS: TIOTROPIUM 18 MCG CAPSULE INHA DEV INH (08:23)
[2017-10-14] MEDS: FLUTICASONE/VILANTEROL 100-25 INH (08:23)
[2017-10-14] MEDS: INSULIN ASPART [NOVOLOG] 3 ML PEN SC ×7 (08:24→21:21)
[2017-10-14] MEDS: NPH, HUMAN INSULIN ISOPHANE 3ML VIAL SC (08:27)
[2017-10-14] MEDS: ENOXAPARIN 80 MG/0.8 ML SYG SC (08:28)
[2017-10-14] MEDS: ASPIRIN 81 MG TAB PO (08:33)
[2017-10-14] MEDS: GUAIFENESIN LA 600 MG TABSR PO ×2 (08:34→21:16)
[2017-10-14] MEDS: VALACYCLOVIR 500 MG TAB PO ×2 (08:34→21:15)
[2017-10-14] MEDS: predniSONE 10 MG TAB PO (08:35)
[2017-10-14] MEDS: FAMOTIDINE 20 MG TAB PO (08:35)
[2017-10-14] MEDS: LINAGLIPTIN 5 MG TABLET PO (08:35)
[2017-10-14] MEDS: BALSAM PERU/CASTOR OIL 60 GM TUBE TOP ×2 (08:41→21:17)
[2017-10-14] MEDS: DILTIAZEM (CD) 120 MG CAP PO ×2 (08:43→21:15)
[2017-10-14] MEDS: METOPROLOL 25 MG TAB PO ×2 (08:43→21:16)
[2017-10-14] MEDS: DIGOXIN 0.125 MG TAB PO (14:25)
[2017-10-14] MEDS: APIXABAN 5 MG TABLET PO (21:15)
[2017-10-14] MEDS: INSULIN GLARGINE [LANTus] (100 UNITS/ML) SYG SC (21:22)
[2017-10-15] MEDS: ACCU-CHEK XX (02:00)
[2017-10-15] MEDS: FUROSEMIDE 40 MG TAB PO (05:50)
[2017-10-15] MEDS: ASPIRIN 81 MG TAB PO (08:23)
[2017-10-15] MEDS: APIXABAN 5 MG TABLET PO ×2 (08:23→21:05)
[2017-10-15] MEDS: LINAGLIPTIN 5 MG TABLET PO (08:23)
[2017-10-15] MEDS: FLUTICASONE/VILANTEROL 100-25 INH (08:23)
[2017-10-15] MEDS: VALACYCLOVIR 500 MG TAB PO ×2 (08:23→21:05)
[2017-10-15] MEDS: predniSONE 10 MG TAB PO (08:24)
[2017-10-15] MEDS: GUAIFENESIN LA 600 MG TABSR PO ×2 (08:24→21:05)
[2017-10-15] MEDS: FAMOTIDINE 20 MG TAB PO (08:24)
[2017-10-15] MEDS: NPH, HUMAN INSULIN ISOPHANE 3ML VIAL SC (08:25)
[2017-10-15] MEDS: INSULIN ASPART [NOVOLOG] 3 ML PEN SC ×8 (08:28→21:20)
[2017-10-15] MEDS: DILTIAZEM (CD) 120 MG CAP PO ×2 (08:34→21:06)
[2017-10-15] MEDS: METOPROLOL 25 MG TAB PO ×2 (08:34→21:06)
[2017-10-15] MEDS: BALSAM PERU/CASTOR OIL 60 GM TUBE TOP ×2 (08:35→21:00)
[2017-10-15] MEDS: TIOTROPIUM 18 MCG CAPSULE INHA DEV INH (10:00)
[2017-10-15] MEDS: DIGOXIN 0.125 MG TAB PO (13:09)
[2017-10-15] MEDS: INSULIN GLARGINE [LANTus] (100 UNITS/ML) SYG SC (20:58)
[2017-10-16] MEDS: BALSAM PERU/CASTOR OIL 60 GM TUBE TOP ×2 (00:30→21:00)
[2017-10-16] MEDS: ACCU-CHEK XX (02:00)
[2017-10-16] MEDS: CEPASTAT LOZENGE MT (04:38)
[2017-10-16] MEDS: INSULIN ASPART [NOVOLOG] 3 ML PEN SC ×7 (08:00→21:00)
[2017-10-16] MEDS: FLUTICASONE/VILANTEROL 100-25 INH (09:13)
[2017-10-16] MEDS: TIOTROPIUM 18 MCG CAPSULE INHA DEV INH (09:13)
[2017-10-16] MEDS: ASPIRIN 81 MG TAB PO (09:13)
[2017-10-16] MEDS: DILTIAZEM (CD) 120 MG CAP PO ×2 (09:13→21:04)
[2017-10-16] MEDS: METOPROLOL 25 MG TAB PO ×2 (09:14→21:03)
[2017-10-16] MEDS: VALACYCLOVIR 500 MG TAB PO ×2 (09:14→21:03)
[2017-10-16] MEDS: GUAIFENESIN LA 600 MG TABSR PO ×2 (09:14→21:04)
[2017-10-16] MEDS: LINAGLIPTIN 5 MG TABLET PO (09:14)
[2017-10-16] MEDS: predniSONE 10 MG TAB PO (09:14)
[2017-10-16] MEDS: APIXABAN 5 MG TABLET PO ×2 (09:44→21:02)
[2017-10-16] MEDS: FAMOTIDINE 20 MG TAB PO (09:44)
[2017-10-16] MEDS: NPH, HUMAN INSULIN ISOPHANE 3ML VIAL SC (09:46)
[2017-10-16] MEDS: DIGOXIN 0.125 MG TAB PO (12:36)
[2017-10-16] MEDS: INSULIN GLARGINE [LANTus] (100 UNITS/ML) SYG SC (21:01)
[2017-10-17] MEDS: ACCU-CHEK XX (00:36)
[2017-10-17] MEDS: BALSAM PERU/CASTOR OIL 60 GM TUBE TOP ×3 (00:44→20:30)
[2017-10-17] MEDS: INSULIN ASPART [NOVOLOG] 3 ML PEN SC ×7 (08:00→20:25)
[2017-10-17] MEDS: TIOTROPIUM 18 MCG CAPSULE INHA DEV INH (09:41)
[2017-10-17] MEDS: predniSONE 10 MG TAB PO (09:41)
[2017-10-17] MEDS: ASPIRIN 81 MG TAB PO (09:42)
[2017-10-17] MEDS: METOPROLOL 25 MG TAB PO ×2 (09:42→20:27)
[2017-10-17] MEDS: VALACYCLOVIR 500 MG TAB PO ×2 (09:42→20:27)
[2017-10-17] MEDS: FAMOTIDINE 20 MG TAB PO (09:42)
[2017-10-17] MEDS: LINAGLIPTIN 5 MG TABLET PO (09:42)
[2017-10-17] MEDS: APIXABAN 5 MG TABLET PO ×2 (09:42→20:25)
[2017-10-17] MEDS: NPH, HUMAN INSULIN ISOPHANE 3ML VIAL SC (09:43)
[2017-10-17] MEDS: DILTIAZEM (CD) 120 MG CAP PO ×2 (09:44→20:30)
[2017-10-17] MEDS: GUAIFENESIN LA 600 MG TABSR PO ×2 (09:44→20:26)
[2017-10-17] MEDS: FLUTICASONE/VILANTEROL 100-25 INH (09:44)
[2017-10-17] MEDS: ACETAMINOPHEN 325 MG TAB PO (12:22)
[2017-10-17] MEDS: DIGOXIN 0.125 MG TAB PO (13:14)
[2017-10-17] MEDS: INSULIN GLARGINE [LANTus] (100 UNITS/ML) SYG SC (20:24)
[2017-10-17] MEDS: NITROGLYCERIN (SL) 0.4 MG TAB SL (23:56)
[2017-10-18] MEDS: NITROGLYCERIN (SL) 0.4 MG TAB SL (00:08)
[2017-10-18] MEDS: ACCU-CHEK XX (02:13)
[2017-10-18 03:16] LABS: TROPONIN-I 0.045 ng/ml (0.000-0.120)
[2017-10-18] MEDS: INSULIN ASPART [NOVOLOG] 3 ML PEN SC ×6 (08:26→18:03)
[2017-10-18] MEDS: ASPIRIN 81 MG TAB PO (08:28)
[2017-10-18] MEDS: FLUTICASONE/VILANTEROL 100-25 INH (08:28)
[2017-10-18] MEDS: TIOTROPIUM 18 MCG CAPSULE INHA DEV INH (08:28)
[2017-10-18] MEDS: GUAIFENESIN LA 600 MG TABSR PO (08:29)
[2017-10-18] MEDS: LINAGLIPTIN 5 MG TABLET PO (08:29)
[2017-10-18] MEDS: FAMOTIDINE 20 MG TAB PO (08:29)
[2017-10-18] MEDS: APIXABAN 5 MG TABLET PO (08:29)
[2017-10-18] MEDS: DILTIAZEM (CD) 120 MG CAP PO (08:30)
[2017-10-18] MEDS: METOPROLOL 25 MG TAB PO (08:30)
[2017-10-18] MEDS: VALACYCLOVIR 500 MG TAB PO (08:30)
[2017-10-18] MEDS: predniSONE 20 MG TAB PO (08:30)
[2017-10-18] MEDS: BALSAM PERU/CASTOR OIL 60 GM TUBE TOP (08:31)
[2017-10-18] MEDS: NPH, HUMAN INSULIN ISOPHANE 3ML VIAL SC (09:35)
[2017-10-18] MEDS: DIGOXIN 0.125 MG TAB PO (13:46)
[2017-10-23] MEDS ORDERED: predniSONE 10 MG TAB PO (09:00)
== END 2017-10-18 17:55 | disposition home health service (06) | DRG 190 ==
LOC: PP2 09-30 23:10 → MS4 22:18
DX: J44.1 Chronic obstructive pulmonary disease with (acute) exacerbation (principal); I50.33 Acute on chronic diastolic (congestive) heart failure; J96.01 Acute respiratory failure with hypoxia; I13.0 Hypertensive heart and chronic kidney disease with heart failure and stage 1 through stage 4 chronic kidney disease, or unspecified chronic kidney disease; N17.9 Acute kidney failure, unspecified; E11.22 Type 2 diabetes mellitus with diabetic chronic kidney disease; N18.9 Chronic kidney disease, unspecified; E11.65 Type 2 diabetes mellitus with hyperglycemia; I48.0 Paroxysmal atrial fibrillation; E78.5 Hyperlipidemia, unspecified; I27.20 Pulmonary hypertension, unspecified; R07.89 Other chest pain; E11.649 Type 2 diabetes mellitus with hypoglycemia without coma; B02.9 Zoster without complications; Z79.4 Long term (current) use of insulin; Z86.711 Personal history of pulmonary embolism
CPT/HCPCS: 36600; 71045; 71046; 71250; 76775; 80048; 80053; 80061; 80069; 80162; 81001; 81003; 82550; 82553; 82570; 82803; 82947; 82962; 83036; 83735; 84100; 84155; 84156; 84165; 84166; 84300; 84443; 84484; 85025; 89190; 93005; 93306; 94640; 94664; 97110; 97116; 97162; 97530

== ENCOUNTER 2018-02-13 21:47 | Inpatient (IN) | payer MEDICARE, BC ==
[2018-02-13] MEDS ORDERED: ONDANSETRON 4 MG TAB PO (23:30)
[2018-02-13] MEDS ORDERED: NACL 0.9% 3 ML SYG IV (23:30)
[2018-02-13] MEDS: METOPROLOL 5 MG INJ IV (23:43)
[2018-02-13] MEDS ORDERED: GLUCAGON 1 MG INJ IM (23:45)
[2018-02-13] MEDS ORDERED: GLUCOSE GEL 15 GRAM TUBE PO ×2 (23:45)
[2018-02-13] MEDS ORDERED: DEXTROSE 50% 50 ML SYRINGE IV ×2 (23:45)
[2018-02-14 00:29] LABS: BASOPHILS % 0.7 % (0.0-2.0); EOSINOPHILS # 0.1 10^3/ul (0.0-0.5); HEMATOCRIT 36.8 % (37.0-47.0); HEMOGLOBIN 11.1 g/dl (12.0-16.0); LYMPHOCYTES # 1.2 10^3/ul (0.8-2.9); LYMPHOCYTES % 20.6 % (15.0-51.0); MEAN CORPUSCULAR HEMOGLOBIN 24.1 pg (29.0-33.0); MEAN CORPUSCULAR HGB CONC 30.2 g/dl (32.0-37.0); MEAN CORPUSCULAR VOLUME 79.8 fl (82.0-101.0); MONOCYTE # 0.7 10^3/ul (0.3-0.9); MONOCYTES % 11.1 % (0.0-11.0); NEUTROPHIL # 3.9 10^3/ul (1.6-7.5); NEUTROPHILS % 65.3 % (39.0-77.0); PLATELET COUNT 158 10^3/UL (140-415); RED BLOOD COUNT 4.61 10^6/ul (4.20-5.40); RED CELL DISTRIBUTION WIDTH 16.5 % (11.5-14.5)
[2018-02-14 00:29] LABS: WHITE BLOOD COUNT 5.9 10^3/ul (4.8-10.8)
[2018-02-14 00:30] LABS: ADD MAN DIFF? NO
[2018-02-14] MEDS: ACETAMINOPHEN 325 MG TAB PO (00:59)
[2018-02-14] MEDS: APIXABAN 5 MG TABLET PO ×3 (00:59→20:42)
[2018-02-14 01:01] LABS: ANION GAP 10 (5-13); BILIRUBIN,TOTAL 0.3 mg/dl (0.2-1.3)
[2018-02-14] MEDS: DILTIAZEM (CD) 120 MG CAP PO ×3 (01:02→22:21)
[2018-02-14 01:08] LABS: B-TYPE NATRIURETIC PEPTIDE 7590 PG/ML (0-450)
[2018-02-14 01:08] LABS: ALANINE AMINOTRANSFERASE 13 IU/L (13-69); ALBUMIN 3.8 g/dl (3.3-4.9); ALKALINE PHOSPHATASE 111 IU/L (42-121); ASPARTATE AMINO TRANSFERASE 24 IU/L (15-46); BILIRUBIN,INDIRECT 0.3 mg/dl (0-1.1); BLOOD UREA NITROGEN 17 mg/dl (7-20); CALCIUM 9.4 mg/dl (8.4-10.2); CARBON DIOXIDE 25 mmol/L (21-31); CHLORIDE 107 mmol/L (97-110); CREATINE KINASE 107 IU/L (23-200); CREATININE 1.31 mg/dl (0.44-1.00); GLUCOSE 182 mg/dl (70-220); MAGNESIUM 1.9 mg/dl (1.7-2.5); POTASSIUM 4.7 mmol/L (3.5-5.1); SODIUM 142 mmol/L (135-144); TOTAL PROTEIN 6.5 g/dl (6.1-8.1)
[2018-02-14 01:12] LABS: CK INDEX 1.6
[2018-02-14 01:16] LABS: CK-MB 1.74 ng/ml (0.0-2.4); TROPONIN-I 0.029 ng/ml (0.000-0.120)
[2018-02-14] MEDS: ACCU-CHEK XX (02:00)
[2018-02-14] MEDS: DIGOXIN 0.125 MG TAB PO ×2 (03:06→13:16)
[2018-02-14 06:38] LABS: ADD MAN DIFF? NO
[2018-02-14 06:42] LABS: WHITE BLOOD COUNT 4.6 10^3/ul (4.8-10.8)
[2018-02-14 06:42] LABS: BASOPHILS % 0.4 % (0.0-2.0); EOSINOPHILS # 0.1 10^3/ul (0.0-0.5); EOSINOPHILS % 2.6 % (0.0-7.0); HEMATOCRIT 34.4 % (37.0-47.0); HEMOGLOBIN 10.1 g/dl (12.0-16.0); LYMPHOCYTES # 1.2 10^3/ul (0.8-2.9); LYMPHOCYTES % 25.5 % (15.0-51.0); MEAN CORPUSCULAR HGB CONC 29.4 g/dl (32.0-37.0); MEAN CORPUSCULAR VOLUME 81.7 fl (82.0-101.0); MEAN PLATELET VOLUME 11.5 fl (7.4-10.4); MONOCYTE # 0.6 10^3/ul (0.3-0.9); MONOCYTES % 12.5 % (0.0-11.0); NEUTROPHIL # 2.7 10^3/ul (1.6-7.5); NEUTROPHILS % 58.6 % (39.0-77.0); PLATELET COUNT 148 10^3/UL (140-415); RED BLOOD COUNT 4.21 10^6/ul (4.20-5.40); RED CELL DISTRIBUTION WIDTH 16.3 % (11.5-14.5)
[2018-02-14 06:51] LABS: HEMOGLOBIN A1C 7.3 % (0-5.9)
[2018-02-14 07:01] LABS: CREATINE KINASE 108 IU/L (23-200); IRON 23 ug/dl (35-150)
[2018-02-14 07:03] LABS: ALANINE AMINOTRANSFERASE 20 IU/L (13-69); ALBUMIN 3.3 g/dl (3.3-4.9); ALKALINE PHOSPHATASE 81 IU/L (42-121); ANION GAP 6 (5-13); ASPARTATE AMINO TRANSFERASE 22 IU/L (15-46); BILIRUBIN,INDIRECT 0.3 mg/dl (0-1.1); BILIRUBIN,TOTAL 0.3 mg/dl (0.2-1.3); BLOOD UREA NITROGEN 17 mg/dl (7-20); CALCIUM 9.2 mg/dl (8.4-10.2); CARBON DIOXIDE 27 mmol/L (21-31); CHLORIDE 109 mmol/L (97-110); CHOL/HDL RATIO 2.4 RATIO; CHOLESTEROL 108 mg/dl (100-200); CREATININE 1.23 mg/dl (0.44-1.00); GLUCOSE 136 mg/dl (70-220); HDL CHOLESTEROL 45 mg/dl (33-92); LDL CHOLESTEROL,CALCULATED 55 mg/dl; MAGNESIUM 1.9 mg/dl (1.7-2.5); POTASSIUM 4.9 mmol/L (3.5-5.1); SODIUM 142 mmol/L (135-144); TOTAL PROTEIN 5.5 g/dl (6.1-8.1); TRIGLYCERIDES 42 mg/dl (0-149)
[2018-02-14 07:11] LABS: % IRON SATURATION 6 % SAT (22-52); TOTAL IRON BINDING CAPACITY 364 ug/dl (241-421)
[2018-02-14 07:14] LABS: CK INDEX 1.2; CK-MB 1.33 ng/ml (0.0-2.4); TROPONIN-I 0.016 ng/ml (0.000-0.120)
[2018-02-14 07:38] LABS: FERRITIN 18.9 ng/ml (11.1-264.0)
[2018-02-14] MEDS: IPRATROPIUM (NEB) 0.5 MG/2.5 ML AMP HHN ×3 (07:40→19:25)
[2018-02-14] MEDS: LEVALBUTEROL (NEB) 1.25 MG/0.5 ML AMP HHN ×3 (07:41→19:25)
[2018-02-14] MEDS: INSULIN ASPART [NOVOLOG] 3 ML PEN SC ×7 (07:55→21:00)
[2018-02-14] MEDS ORDERED: INSULIN ASPART [NOVOLOG] 3 ML PEN SC (08:00)
[2018-02-14] MEDS: TIOTROPIUM 18 MCG CAPSULE INHA DEV INH (08:10)
[2018-02-14] MEDS: FUROSEMIDE 40 MG INJ IV (08:10)
[2018-02-14] MEDS: FLUTICASONE/VILANTEROL 100-25 INH (08:10)
[2018-02-14] MEDS: METOPROLOL 25 MG TAB PO ×2 (08:11→20:42)
[2018-02-14] MEDS: ASPIRIN 81 MG TAB PO (08:11)
[2018-02-14] MEDS: INSULIN GLARGINE [LANTus] (100 UNITS/ML) SYG SC (08:26)
[2018-02-14] MEDS ORDERED: NON-FORMULARY/PATIENT OWN MED (Omeprazole* 20 MG) PO (09:00)
[2018-02-14] MEDS ORDERED: INSULIN GLARGINE [LANtus] 3 ML PEN SC ×2 (09:00)
[2018-02-14] MEDS: PANTOPRAZOLE (EC) 40 MG TAB PO (09:30)
[2018-02-14] MEDS: PSYLLIUM 28% PACKET PO (12:28)
[2018-02-14] MEDS ORDERED: DIGOXIN 0.125 MG TAB PO (13:00)
[2018-02-14] MEDS: LEVOFLOXACIN 500 MG TAB PO (16:32)
[2018-02-15] MEDS: LEVALBUTEROL (NEB) 1.25 MG/0.5 ML AMP HHN ×4 (01:55→19:30)
[2018-02-15] MEDS: IPRATROPIUM (NEB) 0.5 MG/2.5 ML AMP HHN ×4 (01:55→19:30)
[2018-02-15] MEDS: ACCU-CHEK XX (02:00)
[2018-02-15] MEDS: PANTOPRAZOLE (EC) 40 MG TAB PO (05:16)
[2018-02-15] MEDS: LEVOFLOXACIN 250 MG TAB PO (05:16)
[2018-02-15 05:38] LABS: ADD MAN DIFF? NO
[2018-02-15 05:46] LABS: BASOPHILS % 0.4 % (0.0-2.0); EOSINOPHILS # 0.2 10^3/ul (0.0-0.5); EOSINOPHILS % 3.8 % (0.0-7.0); HEMATOCRIT 36.6 % (37.0-47.0); HEMOGLOBIN 11.1 g/dl (12.0-16.0); LYMPHOCYTES # 1.3 10^3/ul (0.8-2.9); LYMPHOCYTES % 24.1 % (15.0-51.0); MEAN CORPUSCULAR HEMOGLOBIN 24.4 pg (29.0-33.0); MEAN CORPUSCULAR HGB CONC 30.3 g/dl (32.0-37.0); MEAN CORPUSCULAR VOLUME 80.6 fl (82.0-101.0); MEAN PLATELET VOLUME 11.7 fl (7.4-10.4); MONOCYTE # 0.7 10^3/ul (0.3-0.9); MONOCYTES % 12.5 % (0.0-11.0); NEUTROPHIL # 3.1 10^3/ul (1.6-7.5); PLATELET COUNT 184 10^3/UL (140-415); RED BLOOD COUNT 4.54 10^6/ul (4.20-5.40); RED CELL DISTRIBUTION WIDTH 16.3 % (11.5-14.5)
[2018-02-15 05:46] LABS: WHITE BLOOD COUNT 5.2 10^3/ul (4.8-10.8)
[2018-02-15 06:09] LABS: IRON 29 ug/dl (35-150)
[2018-02-15 06:19] LABS: % IRON SATURATION 8 % SAT (22-52); TOTAL IRON BINDING CAPACITY 368 ug/dl (241-421)
[2018-02-15 06:22] LABS: ANION GAP 10 (5-13); BLOOD UREA NITROGEN 27 mg/dl (7-20); CALCIUM 9.3 mg/dl (8.4-10.2); CARBON DIOXIDE 26 mmol/L (21-31); CHLORIDE 106 mmol/L (97-110); CREATININE 1.56 mg/dl (0.44-1.00); GLUCOSE 111 mg/dl (70-220); POTASSIUM 4.9 mmol/L (3.5-5.1); SODIUM 142 mmol/L (135-144)
[2018-02-15] MEDS: INSULIN ASPART [NOVOLOG] 3 ML PEN SC ×6 (08:00→20:38)
[2018-02-15] MEDS: TIOTROPIUM 18 MCG CAPSULE INHA DEV INH (08:09)
[2018-02-15] MEDS: PSYLLIUM 28% PACKET PO (08:09)
[2018-02-15] MEDS: FLUTICASONE/VILANTEROL 100-25 INH (08:09)
[2018-02-15] MEDS: ASPIRIN 81 MG TAB PO (08:10)
[2018-02-15] MEDS: METOPROLOL 25 MG TAB PO ×2 (08:11→20:36)
[2018-02-15] MEDS: DILTIAZEM (CD) 120 MG CAP PO ×2 (08:11→20:35)
[2018-02-15] MEDS: FUROSEMIDE 40 MG INJ IV (08:12)
[2018-02-15] MEDS: APIXABAN 5 MG TABLET PO ×2 (08:12→20:35)
[2018-02-15] MEDS: INSULIN GLARGINE [LANTus] (100 UNITS/ML) SYG SC (08:48)
[2018-02-15] MEDS: DIGOXIN 0.125 MG TAB PO (13:06)
[2018-02-15] MEDS: ACETAMINOPHEN 325 MG TAB PO (14:45)
[2018-02-16] MEDS: IPRATROPIUM (NEB) 0.5 MG/2.5 ML AMP HHN ×4 (02:00→20:29)
[2018-02-16] MEDS: ACCU-CHEK XX (02:00)
[2018-02-16] MEDS: LEVALBUTEROL (NEB) 1.25 MG/0.5 ML AMP HHN ×4 (02:01→20:29)
[2018-02-16 05:50] LABS: ANION GAP 7 (5-13); BLOOD UREA NITROGEN 34 mg/dl (7-20); CALCIUM 9.1 mg/dl (8.4-10.2); CARBON DIOXIDE 25 mmol/L (21-31); CHLORIDE 109 mmol/L (97-110); CREATININE 1.49 mg/dl (0.44-1.00); GLUCOSE 158 mg/dl (70-220); POTASSIUM 4.5 mmol/L (3.5-5.1); SODIUM 141 mmol/L (135-144)
[2018-02-16] MEDS: PANTOPRAZOLE (EC) 40 MG TAB PO (05:53)
[2018-02-16] MEDS: LEVOFLOXACIN 250 MG TAB PO (05:53)
[2018-02-16] MEDS: ACETAMINOPHEN 325 MG TAB PO ×2 (05:54→18:25)
[2018-02-16] MEDS: INSULIN ASPART [NOVOLOG] 3 ML PEN SC ×6 (07:50→20:05)
[2018-02-16] MEDS: PSYLLIUM 28% PACKET PO (08:17)
[2018-02-16] MEDS: APIXABAN 5 MG TABLET PO ×2 (08:18→20:01)
[2018-02-16] MEDS: TIOTROPIUM 18 MCG CAPSULE INHA DEV INH (08:18)
[2018-02-16] MEDS: ASPIRIN 81 MG TAB PO (08:18)
[2018-02-16] MEDS: METOPROLOL 25 MG TAB PO ×2 (08:18→20:01)
[2018-02-16] MEDS: DILTIAZEM (CD) 120 MG CAP PO ×2 (08:18→20:00)
[2018-02-16] MEDS: FLUTICASONE/VILANTEROL 100-25 INH (08:19)
[2018-02-16] MEDS: FUROSEMIDE 20 MG INJ IV (08:19)
[2018-02-16] MEDS: INSULIN GLARGINE [LANTus] (100 UNITS/ML) SYG SC (08:30)
[2018-02-16] MEDS: DIGOXIN 0.125 MG TAB PO (13:41)
[2018-02-17] MEDS: IPRATROPIUM (NEB) 0.5 MG/2.5 ML AMP HHN ×4 (01:34→19:21)
[2018-02-17] MEDS: LEVALBUTEROL (NEB) 1.25 MG/0.5 ML AMP HHN ×4 (01:34→19:21)
[2018-02-17] MEDS: ACCU-CHEK XX ×2 (01:38→23:44)
[2018-02-17] MEDS: ACETAMINOPHEN 325 MG TAB PO ×2 (02:56→20:22)
[2018-02-17] MEDS: PANTOPRAZOLE (EC) 40 MG TAB PO (05:22)
[2018-02-17] MEDS: LEVOFLOXACIN 250 MG TAB PO (05:22)
[2018-02-17 06:46] LABS: ANION GAP 11 (5-13); BLOOD UREA NITROGEN 42 mg/dl (7-20); CARBON DIOXIDE 25 mmol/L (21-31); CHLORIDE 105 mmol/L (97-110); CREATININE 1.52 mg/dl (0.44-1.00); GLUCOSE 159 mg/dl (70-220); POTASSIUM 4.5 mmol/L (3.5-5.1); SODIUM 141 mmol/L (135-144)
[2018-02-17] MEDS: INSULIN ASPART [NOVOLOG] 3 ML PEN SC ×6 (08:10→20:23)
[2018-02-17] MEDS: ASPIRIN 81 MG TAB PO (08:25)
[2018-02-17] MEDS: FLUTICASONE/VILANTEROL 100-25 INH (08:25)
[2018-02-17] MEDS: PSYLLIUM 28% PACKET PO (08:25)
[2018-02-17] MEDS: DILTIAZEM (CD) 120 MG CAP PO ×2 (08:27→20:23)
[2018-02-17] MEDS: METOPROLOL 25 MG TAB PO ×2 (08:27→20:23)
[2018-02-17] MEDS: FUROSEMIDE 40 MG TAB PO (08:28)
[2018-02-17] MEDS: INSULIN GLARGINE [LANTus] (100 UNITS/ML) SYG SC (08:32)
[2018-02-17] MEDS: APIXABAN 5 MG TABLET PO ×2 (08:42→20:22)
[2018-02-17] MEDS: TIOTROPIUM 18 MCG CAPSULE INHA DEV INH (12:07)
[2018-02-17] MEDS: DIGOXIN 0.125 MG TAB PO (16:14)
[2018-02-18] MEDS: IPRATROPIUM (NEB) 0.5 MG/2.5 ML AMP HHN ×4 (02:00→19:59)
[2018-02-18] MEDS: LEVALBUTEROL (NEB) 1.25 MG/0.5 ML AMP HHN ×4 (02:00→19:59)
[2018-02-18] MEDS: LEVOFLOXACIN 250 MG TAB PO (06:11)
[2018-02-18] MEDS: PANTOPRAZOLE (EC) 40 MG TAB PO (06:11)
[2018-02-18] MEDS: INSULIN ASPART [NOVOLOG] 3 ML PEN SC ×6 (07:33→20:41)
[2018-02-18] MEDS: INSULIN GLARGINE [LANTus] (100 UNITS/ML) SYG SC (07:55)
[2018-02-18] MEDS: TIOTROPIUM 18 MCG CAPSULE INHA DEV INH (09:24)
[2018-02-18] MEDS: PSYLLIUM 28% PACKET PO (09:25)
[2018-02-18] MEDS: AMMONIUM LACTATE 12% 225 GM LOT TOP (09:25)
[2018-02-18] MEDS: CLOTRIMAZOLE 1% 30 GM CR TOP ×2 (09:25→20:42)
[2018-02-18] MEDS: FLUTICASONE/VILANTEROL 100-25 INH (09:25)
[2018-02-18] MEDS: ASPIRIN 81 MG TAB PO (09:26)
[2018-02-18] MEDS: DILTIAZEM (CD) 120 MG CAP PO ×2 (09:26→20:40)
[2018-02-18] MEDS: FUROSEMIDE 40 MG TAB PO (09:26)
[2018-02-18] MEDS: APIXABAN 5 MG TABLET PO ×2 (09:26→20:39)
[2018-02-18] MEDS: METOPROLOL 25 MG TAB PO ×2 (09:27→20:41)
[2018-02-18] MEDS: ACETAMINOPHEN 325 MG TAB PO ×2 (10:03→19:29)
[2018-02-18 12:09] LABS: AADO2 Arterial 33.2 mmHg (7.0-24.0); Allen Test ACCEPTAB; Arterial Base Excess -1.5 mmol/L (-3.0-3); Arterial COHb 0.4 % (0.0-3.0); Arterial Fraction of Oxyhgb 93.4 % (93.0-99.0); Arterial MetHb 0.2 % (0.0-1.5); Arterial Total Hemglobin 11.7 g/dl (12.0-18.0); Arterial pCO2 38.2 mmhg (35-45); MODE ROOM AIR; Site Right Radial
[2018-02-18] MEDS: DIGOXIN 0.125 MG TAB PO (13:08)
[2018-02-19] MEDS: ACCU-CHEK XX (01:20)
[2018-02-19] MEDS: IPRATROPIUM (NEB) 0.5 MG/2.5 ML AMP HHN ×4 (02:39→20:00)
[2018-02-19] MEDS: LEVALBUTEROL (NEB) 1.25 MG/0.5 ML AMP HHN ×4 (02:39→20:00)
[2018-02-19] MEDS: ACETAMINOPHEN 325 MG TAB PO (03:36)
[2018-02-19] MEDS ORDERED: HYDROmorphONE 1 MG/ML SYG IV (05:30)
[2018-02-19 05:36] LABS: ADD MAN DIFF? NO
[2018-02-19 05:40] LABS: WHITE BLOOD COUNT 5.7 10^3/ul (4.8-10.8)
[2018-02-19 05:40] LABS: BASOPHILS % 0.5 % (0.0-2.0); EOSINOPHILS # 0.2 10^3/ul (0.0-0.5); EOSINOPHILS % 2.8 % (0.0-7.0); HEMATOCRIT 33.9 % (37.0-47.0); HEMOGLOBIN 10.1 g/dl (12.0-16.0); LYMPHOCYTES # 1.3 10^3/ul (0.8-2.9); LYMPHOCYTES % 22.6 % (15.0-51.0); MEAN CORPUSCULAR HEMOGLOBIN 23.7 pg (29.0-33.0); MEAN CORPUSCULAR HGB CONC 29.8 g/dl (32.0-37.0); MEAN CORPUSCULAR VOLUME 79.6 fl (82.0-101.0); MEAN PLATELET VOLUME 11.6 fl (7.4-10.4); MONOCYTE # 0.7 10^3/ul (0.3-0.9); MONOCYTES % 12.3 % (0.0-11.0); NEUTROPHIL # 3.5 10^3/ul (1.6-7.5); NEUTROPHILS % 61.4 % (39.0-77.0); PLATELET COUNT 210 10^3/UL (140-415); RED BLOOD COUNT 4.26 10^6/ul (4.20-5.40); RED CELL DISTRIBUTION WIDTH 16.7 % (11.5-14.5)
[2018-02-19 06:01] LABS: PHOSPHORUS 3.7 mg/dl (2.5-4.9)
[2018-02-19 06:15] LABS: ALANINE AMINOTRANSFERASE 15 IU/L (13-69); ALBUMIN 3.8 g/dl (3.3-4.9); ALBUMIN/GLOBULIN RATIO 1.46; ALKALINE PHOSPHATASE 84 IU/L (42-121); ANION GAP 10 (5-13); ASPARTATE AMINO TRANSFERASE 39 IU/L (15-46); BILIRUBIN,INDIRECT 0.2 mg/dl (0-1.1); BILIRUBIN,TOTAL 0.2 mg/dl (0.2-1.3); BLOOD UREA NITROGEN 52 mg/dl (7-20); CALCIUM 9.2 mg/dl (8.4-10.2); CARBON DIOXIDE 26 mmol/L (21-31); CHLORIDE 103 mmol/L (97-110); CREATININE 1.49 mg/dl (0.44-1.00); GLUCOSE 118 mg/dl (70-220); POTASSIUM 4.5 mmol/L (3.5-5.1); SODIUM 139 mmol/L (135-144); TOTAL PROTEIN 6.4 g/dl (6.1-8.1)
[2018-02-19] MEDS: PANTOPRAZOLE (EC) 40 MG TAB PO (06:18)
[2018-02-19] MEDS: HYDROmorphONE 2 MG TAB PO (06:40)
[2018-02-19] MEDS: INSULIN ASPART [NOVOLOG] 3 ML PEN SC ×5 (08:00→17:21)
[2018-02-19] MEDS: CLOTRIMAZOLE 1% 30 GM CR TOP (08:29)
[2018-02-19] MEDS: AMMONIUM LACTATE 12% 225 GM LOT TOP (08:29)
[2018-02-19] MEDS: INSULIN GLARGINE [LANTus] (100 UNITS/ML) SYG SC (08:32)
[2018-02-19] MEDS: FUROSEMIDE 40 MG TAB PO (10:44)
[2018-02-19] MEDS: ASPIRIN 81 MG TAB PO (10:44)
[2018-02-19] MEDS: DILTIAZEM (CD) 120 MG CAP PO (10:44)
[2018-02-19] MEDS: METOPROLOL 25 MG TAB PO (10:45)
[2018-02-19] MEDS: FLUTICASONE/VILANTEROL 100-25 INH (10:45)
[2018-02-19] MEDS: APIXABAN 5 MG TABLET PO (10:45)
[2018-02-19] MEDS: TIOTROPIUM 18 MCG CAPSULE INHA DEV INH (10:45)
[2018-02-19] MEDS: PSYLLIUM 28% PACKET PO (10:48)
[2018-02-19] MEDS: DIGOXIN 0.125 MG TAB PO (15:20)
[2018-02-19] MEDS: GLUCOSE GEL 15 GRAM TUBE BUCCAL ×2 (17:21→17:32)
== END 2018-02-19 20:16 | disposition home health service (06) | DRG 264 ==
LOC: 6WM 21:47
PROC: 0JBN0ZZ Excision of Right Lower Leg Subcutaneous Tissue and Fascia, Open Approach (ICD-10-PCS; principal; 2018-02-17)
DX: I13.0 Hypertensive heart and chronic kidney disease with heart failure and stage 1 through stage 4 chronic kidney disease, or unspecified chronic kidney disease (principal); J96.01 Acute respiratory failure with hypoxia; I50.33 Acute on chronic diastolic (congestive) heart failure; J44.1 Chronic obstructive pulmonary disease with (acute) exacerbation; D68.69 Other thrombophilia; L97.819 Non-pressure chronic ulcer of other part of right lower leg with unspecified severity; E11.622 Type 2 diabetes mellitus with other skin ulcer; E11.51 Type 2 diabetes mellitus with diabetic peripheral angiopathy without gangrene; E11.22 Type 2 diabetes mellitus with diabetic chronic kidney disease; E11.42 Type 2 diabetes mellitus with diabetic polyneuropathy; I27.20 Pulmonary hypertension, unspecified; I35.0 Nonrheumatic aortic (valve) stenosis; B35.1 Tinea unguium; B35.3 Tinea pedis; D50.9 Iron deficiency anemia, unspecified; E78.5 Hyperlipidemia, unspecified; G47.00 Insomnia, unspecified; I48.0 Paroxysmal atrial fibrillation; I87.2 Venous insufficiency (chronic) (peripheral); K21.9 Gastro-esophageal reflux disease without esophagitis; N18.3 Chronic kidney disease, stage 3 (moderate); R60.0 Localized edema; S80.821A Blister (nonthermal), right lower leg, initial encounter; X58.XXXA Exposure to other specified factors, initial encounter; Z87.891 Personal history of nicotine dependence; Z86.711 Personal history of pulmonary embolism; Z79.4 Long term (current) use of insulin; Z79.01 Long term (current) use of anticoagulants
CPT/HCPCS: 36600; 71045; 80048; 80053; 80061; 82550; 82553; 82728; 82803; 82962; 83036; 83540; 83735; 83880; 84100; 84443; 84484; 85025; 87081; 93306; 93922; 93970; 94640; 94664

== ENCOUNTER 2018-03-22 14:23 | Inpatient (IN) | payer MEDICARE, BC ==
[2018-03-22] MEDS: LEVALBUTEROL (NEB) 1.25 MG/0.5 ML AMP INH (15:30)
[2018-03-22] MEDS: IPRATROPIUM (NEB) 0.5 MG/2.5 ML AMP NEB (15:30)
[2018-03-22 16:00] LABS: ADD MAN DIFF? NO
[2018-03-22 16:05] LABS: ABNORMAL IP MESSAGE 1; BASOPHILS % 0.4 % (0.0-2.0); EOSINOPHILS # 0.1 10^3/ul (0.0-0.5); EOSINOPHILS % 1.9 % (0.0-7.0); HEMATOCRIT 37.6 % (37.0-47.0); HEMOGLOBIN 11.4 g/dl (12.0-16.0); LYMPHOCYTES # 1.2 10^3/ul (0.8-2.9); LYMPHOCYTES % 22.5 % (15.0-51.0); MEAN CORPUSCULAR HEMOGLOBIN 23.2 pg (29.0-33.0); MEAN CORPUSCULAR HGB CONC 30.3 g/dl (32.0-37.0); MEAN CORPUSCULAR VOLUME 76.6 fl (82.0-101.0); MEAN PLATELET VOLUME 11.3 fl (7.4-10.4); MONOCYTE # 0.6 10^3/ul (0.3-0.9); MONOCYTES % 11.6 % (0.0-11.0); NEUTROPHIL # 3.3 10^3/ul (1.6-7.5); NEUTROPHILS % 63.4 % (39.0-77.0); PLATELET COUNT 154 10^3/UL (140-415); RED BLOOD COUNT 4.91 10^6/ul (4.20-5.40); RED CELL DISTRIBUTION WIDTH 18.2 % (11.5-14.5)
[2018-03-22 16:05] LABS: WHITE BLOOD COUNT 5.2 10^3/ul (4.8-10.8)
[2018-03-22 16:06] LABS: POSITIVE DIFF @See below
[2018-03-22 16:28] LABS: PROTIME 17.4 Sec (11.9-14.9); PT RATIO 1.4
[2018-03-22 16:29] LABS: PARTIAL THROMBOPLASTIN TIME 31.9 Sec (23.0-35.0)
[2018-03-22 16:32] LABS: ANION GAP 9 (5-13); BLOOD UREA NITROGEN 16 mg/dl (7-20); CALCIUM 9.7 mg/dl (8.4-10.2); CARBON DIOXIDE 24 mmol/L (21-31); CHLORIDE 110 mmol/L (97-110); CREATININE 1.08 mg/dl (0.44-1.00); GLUCOSE 119 mg/dl (70-220); POTASSIUM 4.4 mmol/L (3.5-5.1); SODIUM 143 mmol/L (135-144)
[2018-03-22 16:44] LABS: B-TYPE NATRIURETIC PEPTIDE 8190 PG/ML (0-450); TROPONIN-I 0.019 ng/ml (0.000-0.120)
[2018-03-22] MEDS: FUROSEMIDE 40 MG INJ IV (17:48)
[2018-03-22] MEDS ORDERED: GLUCAGON 1 MG INJ IM (19:00)
[2018-03-22] MEDS ORDERED: GLUCOSE GEL 15 GRAM TUBE PO ×2 (19:00)
[2018-03-22] MEDS ORDERED: NACL 0.9% 3 ML SYG IV (19:00)
[2018-03-22] MEDS ORDERED: DEXTROSE 50% 50 ML SYRINGE IV ×2 (19:00)
[2018-03-22] MEDS ORDERED: GLUCOSE GEL 15 GRAM TUBE BUCCAL (19:00)
[2018-03-22] MEDS ORDERED: ONDANSETRON 4 MG INJ IV (19:00)
[2018-03-22] MEDS ORDERED: ZOLPIDEM 5 MG TAB PO (19:00)
[2018-03-22] MEDS ORDERED: morphine 2 MG INJ IV (19:00)
[2018-03-22] MEDS ORDERED: DOCUSATE SODIUM 100 MG CAP PO (19:00)
[2018-03-22] MEDS: APIXABAN 5 MG TABLET PO (20:27)
[2018-03-22] MEDS: DILTIAZEM (CD) 120 MG CAP PO (21:00)
[2018-03-22] MEDS: CLOTRIMAZOLE 1% 30 GM CR TOP (21:00)
[2018-03-22] MEDS: INSULIN ASPART [NOVOLOG] 3 ML PEN SC (23:14)
[2018-03-22] MEDS: METOPROLOL 25 MG TAB PO (23:15)
[2018-03-23] MEDS: ALBUTEROL/IPRATROPIUM (NEB) 3 ML AMP HHN ×2 (01:44→10:12)
[2018-03-23] MEDS: ACCU-CHEK XX (02:00)
[2018-03-23 05:35] LABS: ADD MAN DIFF? NO
[2018-03-23 05:55] LABS: WHITE BLOOD COUNT 4.3 10^3/ul (4.8-10.8)
[2018-03-23 05:55] LABS: BASOPHILS % 0.5 % (0.0-2.0); EOSINOPHILS # 0.1 10^3/ul (0.0-0.5); EOSINOPHILS % 2.3 % (0.0-7.0); HEMATOCRIT 31.2 % (37.0-47.0); HEMOGLOBIN 9.6 g/dl (12.0-16.0); LYMPHOCYTES # 1.1 10^3/ul (0.8-2.9); LYMPHOCYTES % 24.7 % (15.0-51.0); MEAN CORPUSCULAR HEMOGLOBIN 23.4 pg (29.0-33.0); MEAN CORPUSCULAR HGB CONC 30.8 g/dl (32.0-37.0); MEAN CORPUSCULAR VOLUME 75.9 fl (82.0-101.0); MEAN PLATELET VOLUME 11.5 fl (7.4-10.4); MONOCYTE # 0.5 10^3/ul (0.3-0.9); MONOCYTES % 10.7 % (0.0-11.0); NEUTROPHIL # 2.7 10^3/ul (1.6-7.5); NEUTROPHILS % 61.8 % (39.0-77.0); PLATELET COUNT 155 10^3/UL (140-415); RED BLOOD COUNT 4.11 10^6/ul (4.20-5.40); RED CELL DISTRIBUTION WIDTH 17.7 % (11.5-14.5)
[2018-03-23 06:24] LABS: ANION GAP 7 (5-13); BLOOD UREA NITROGEN 20 mg/dl (7-20); CALCIUM 8.9 mg/dl (8.4-10.2); CARBON DIOXIDE 25 mmol/L (21-31); CHLORIDE 109 mmol/L (97-110); CREATININE 1.15 mg/dl (0.44-1.00); GLUCOSE 151 mg/dl (70-220); MAGNESIUM 1.7 mg/dl (1.7-2.5); POTASSIUM 4.2 mmol/L (3.5-5.1); SODIUM 141 mmol/L (135-144)
[2018-03-23] MEDS: FUROSEMIDE 40 MG INJ IV ×2 (06:43→17:29)
[2018-03-23 06:46] LABS: HEMOGLOBIN A1C 7.1 % (0-5.9)
[2018-03-23] MEDS ORDERED: PENDING SANTYL ORDER FOR WOUND CARE XX (08:00)
[2018-03-23] MEDS ORDERED: INSULIN GLARGINE [LANtus] 3 ML PEN SC (09:00)
[2018-03-23] MEDS ORDERED: ENOXAPARIN 30 MG/0.3 ML SYG SC (09:00)
[2018-03-23] MEDS: APIXABAN 5 MG TABLET PO ×2 (09:25→20:45)
[2018-03-23] MEDS: LINAGLIPTIN 5 MG TABLET PO (09:30)
[2018-03-23] MEDS: ASPIRIN 81 MG TAB PO (09:30)
[2018-03-23] MEDS: DILTIAZEM (CD) 120 MG CAP PO ×2 (09:30→20:41)
[2018-03-23] MEDS: PSYLLIUM 28% PACKET PO (09:30)
[2018-03-23] MEDS: CLOTRIMAZOLE 1% 30 GM CR TOP ×2 (09:31→21:00)
[2018-03-23] MEDS: FLUTICASONE/VILANTEROL 100-25 INH ×2 (09:37→10:04)
[2018-03-23] MEDS: TIOTROPIUM 18 MCG CAPSULE INHA DEV INH ×2 (09:37→10:04)
[2018-03-23] MEDS: INSULIN ASPART [NOVOLOG] 3 ML PEN SC ×7 (10:07→20:49)
[2018-03-23] MEDS: METOPROLOL 25 MG TAB PO ×2 (12:33→20:42)
[2018-03-23] MEDS: DIGOXIN 0.125 MG TAB PO (13:03)
[2018-03-23] MEDS: INSULIN GLARGINE [LANTus] (100 UNITS/ML) SYG SC (15:06)
[2018-03-23] MEDS ORDERED: morphine LIQ (10 MG/5 ML) CUP PO (23:00)
[2018-03-24] MEDS: ACCU-CHEK XX (01:33)
[2018-03-24] MEDS: FUROSEMIDE 40 MG INJ IV ×2 (05:38→17:02)
[2018-03-24] MEDS: INSULIN ASPART [NOVOLOG] 3 ML PEN SC ×7 (08:04→20:17)
[2018-03-24] MEDS: CLOTRIMAZOLE 1% 30 GM CR TOP ×3 (09:01→20:18)
[2018-03-24] MEDS: ASPIRIN 81 MG TAB PO (09:01)
[2018-03-24] MEDS: PSYLLIUM 28% PACKET PO (09:01)
[2018-03-24] MEDS: DILTIAZEM (CD) 120 MG CAP PO ×2 (09:02→20:16)
[2018-03-24] MEDS: APIXABAN 5 MG TABLET PO ×2 (09:02→20:16)
[2018-03-24] MEDS: METOPROLOL 25 MG TAB PO ×2 (09:02→20:17)
[2018-03-24] MEDS: LINAGLIPTIN 5 MG TABLET PO (09:03)
[2018-03-24] MEDS: TIOTROPIUM 18 MCG CAPSULE INHA DEV INH (09:07)
[2018-03-24] MEDS: FLUTICASONE/VILANTEROL 100-25 INH (09:08)
[2018-03-24] MEDS: INSULIN GLARGINE [LANTus] (100 UNITS/ML) SYG SC (09:14)
[2018-03-24] MEDS: DIGOXIN 0.125 MG TAB PO (12:40)
[2018-03-24] MEDS: AMMONIUM LACTATE 12% 225 GM LOT TOP ×2 (16:00)
[2018-03-24] MEDS: SODIUM HYPOCHLORITE (1/40) 1 APPLIC BTL IRR (18:09)
[2018-03-25] MEDS: ACCU-CHEK XX (02:00)
[2018-03-25] MEDS: ACETAMINOPHEN 325 MG TAB PO (05:27)
[2018-03-25] MEDS: FUROSEMIDE 40 MG INJ IV ×2 (05:28→18:05)
[2018-03-25 06:13] LABS: ADD MAN DIFF? NO
[2018-03-25 06:18] LABS: BASOPHILS % 0.2 % (0.0-2.0); EOSINOPHILS # 0.2 10^3/ul (0.0-0.5); EOSINOPHILS % 3.9 % (0.0-7.0); HEMATOCRIT 32.9 % (37.0-47.0); HEMOGLOBIN 10.2 g/dl (12.0-16.0); LYMPHOCYTES # 1.3 10^3/ul (0.8-2.9); LYMPHOCYTES % 28.1 % (15.0-51.0); MEAN CORPUSCULAR HEMOGLOBIN 23.4 pg (29.0-33.0); MEAN CORPUSCULAR VOLUME 75.5 fl (82.0-101.0); MEAN PLATELET VOLUME 11.6 fl (7.4-10.4); MONOCYTE # 0.5 10^3/ul (0.3-0.9); MONOCYTES % 10.8 % (0.0-11.0); NEUTROPHIL # 2.6 10^3/ul (1.6-7.5); NEUTROPHILS % 56.6 % (39.0-77.0); PLATELET COUNT 182 10^3/UL (140-415); RED BLOOD COUNT 4.36 10^6/ul (4.20-5.40); RED CELL DISTRIBUTION WIDTH 18.1 % (11.5-14.5)
[2018-03-25 06:18] LABS: WHITE BLOOD COUNT 4.6 10^3/ul (4.8-10.8)
[2018-03-25 06:52] LABS: ANION GAP 11 (5-13); BLOOD UREA NITROGEN 34 mg/dl (7-20); CALCIUM 8.8 mg/dl (8.4-10.2); CARBON DIOXIDE 27 mmol/L (21-31); CHLORIDE 102 mmol/L (97-110); CREATININE 1.45 mg/dl (0.44-1.00); GLUCOSE 135 mg/dl (70-220); MAGNESIUM 1.7 mg/dl (1.7-2.5); PHOSPHORUS 4.3 mg/dl (2.5-4.9); POTASSIUM 4.1 mmol/L (3.5-5.1); SODIUM 140 mmol/L (135-144)
[2018-03-25] MEDS: INSULIN ASPART [NOVOLOG] 3 ML PEN SC ×7 (07:37→20:24)
[2018-03-25] MEDS: APIXABAN 5 MG TABLET PO ×2 (08:10→20:20)
[2018-03-25] MEDS: ASPIRIN 81 MG TAB PO (08:10)
[2018-03-25] MEDS: DILTIAZEM (CD) 120 MG CAP PO ×2 (08:11→20:20)
[2018-03-25] MEDS: PSYLLIUM 28% PACKET PO (08:12)
[2018-03-25] MEDS: METOPROLOL 25 MG TAB PO ×2 (08:12→20:22)
[2018-03-25] MEDS: LINAGLIPTIN 5 MG TABLET PO (08:12)
[2018-03-25] MEDS: CLOTRIMAZOLE 1% 30 GM CR TOP ×4 (08:12→20:25)
[2018-03-25] MEDS: FLUTICASONE/VILANTEROL 100-25 INH (08:13)
[2018-03-25] MEDS: TIOTROPIUM 18 MCG CAPSULE INHA DEV INH (08:13)
[2018-03-25] MEDS: SODIUM HYPOCHLORITE (1/40) 1 APPLIC BTL IRR (08:14)
[2018-03-25] MEDS: AMMONIUM LACTATE 12% 225 GM LOT TOP (08:14)
[2018-03-25] MEDS: INSULIN GLARGINE [LANTus] (100 UNITS/ML) SYG SC (08:27)
[2018-03-25] MEDS: DIGOXIN 0.125 MG TAB PO (13:14)
[2018-03-26] MEDS: ACCU-CHEK XX (02:00)
[2018-03-26] MEDS: FUROSEMIDE 40 MG INJ IV (05:50)
[2018-03-26 06:34] LABS: ANION GAP 10 (5-13); BLOOD UREA NITROGEN 39 mg/dl (7-20); CALCIUM 9.1 mg/dl (8.4-10.2); CARBON DIOXIDE 29 mmol/L (21-31); CHLORIDE 101 mmol/L (97-110); GLUCOSE 171 mg/dl (70-220); MAGNESIUM 1.8 mg/dl (1.7-2.5); POTASSIUM 4.4 mmol/L (3.5-5.1); SODIUM 140 mmol/L (135-144)
[2018-03-26] MEDS: INSULIN ASPART [NOVOLOG] 3 ML PEN SC ×7 (07:48→21:02)
[2018-03-26] MEDS: ASPIRIN 81 MG TAB PO (08:50)
[2018-03-26] MEDS: METOPROLOL 25 MG TAB PO ×2 (08:50→20:53)
[2018-03-26] MEDS: DILTIAZEM (CD) 120 MG CAP PO ×2 (08:50→20:52)
[2018-03-26] MEDS: LINAGLIPTIN 5 MG TABLET PO (08:50)
[2018-03-26] MEDS: PSYLLIUM 28% PACKET PO (08:51)
[2018-03-26] MEDS: FLUTICASONE/VILANTEROL 100-25 INH (08:51)
[2018-03-26] MEDS: APIXABAN 5 MG TABLET PO ×2 (08:51→20:46)
[2018-03-26] MEDS: SODIUM HYPOCHLORITE (1/40) 1 APPLIC BTL IRR (08:51)
[2018-03-26] MEDS: AMMONIUM LACTATE 12% 225 GM LOT TOP (08:52)
[2018-03-26] MEDS: CLOTRIMAZOLE 1% 30 GM CR TOP ×4 (08:52→20:54)
[2018-03-26] MEDS: INSULIN GLARGINE [LANTus] (100 UNITS/ML) SYG SC (09:13)
[2018-03-26] MEDS: TIOTROPIUM 18 MCG CAPSULE INHA DEV INH (09:29)
[2018-03-26] MEDS: DIGOXIN 0.125 MG TAB PO (13:20)
[2018-03-27] MEDS: ACCU-CHEK XX (02:00)
[2018-03-27 02:27] LABS: ADD UMIC YES; UR ASCORBIC ACID NEGATIVE (NEGATIVE); UR BACTERIA FEW /HPF (NONE SEEN); UR BILIRUBIN (Dip) NEGATIVE (NEGATIVE); UR BLOOD (Dip) 1+ mg/dL (NEGATIVE); UR CLARITY SLIGHTLY CLOUDY (CLEAR); UR COLOR YELLOW (YELLOW); UR GLUCOSE (Dip) NEGATIVE (NEGATIVE); UR KETONES (Dip) NEGATIVE (NEGATIVE); UR LEUKOCYTE ESTERASE (Dip) TRACE Leu/ul (NEGATIVE); UR NITRITE (Dip) NEGATIVE (NEGATIVE); UR RBC 24 /HPF (0-5); UR SPECIFIC GRAVITY (Dip) 1.017 (1.003-1.030); UR SQUAMOUS EPITHELIAL CELL FEW /HPF (FEW); UR TOTAL PROTEIN (Dip) NEGATIVE (NEGATIVE); UR UROBILINOGEN (Dip) 2+ mg/dL (NEGATIVE); UR WBC 14 /HPF (0-5)
[2018-03-27 02:52] LABS: CREATININE,URINE RANDOM 93.94 mg/dl (20-320)
[2018-03-27 02:52] LABS: SODIUM,URINE RANDOM 41 mmol/L (30-90)
[2018-03-27 06:10] LABS: ADD MAN DIFF? NO
[2018-03-27 06:26] LABS: BASOPHILS % 0.6 % (0.0-2.0); EOSINOPHILS # 0.2 10^3/ul (0.0-0.5); EOSINOPHILS % 3.8 % (0.0-7.0); HEMATOCRIT 33.2 % (37.0-47.0); HEMOGLOBIN 10.2 g/dl (12.0-16.0); LYMPHOCYTES # 1.2 10^3/ul (0.8-2.9); LYMPHOCYTES % 25.4 % (15.0-51.0); MEAN CORPUSCULAR HEMOGLOBIN 23.1 pg (29.0-33.0); MEAN CORPUSCULAR HGB CONC 30.7 g/dl (32.0-37.0); MEAN CORPUSCULAR VOLUME 75.3 fl (82.0-101.0); MEAN PLATELET VOLUME 12.2 fl (7.4-10.4); MONOCYTE # 0.6 10^3/ul (0.3-0.9); MONOCYTES % 12.3 % (0.0-11.0); NEUTROPHIL # 2.7 10^3/ul (1.6-7.5); NEUTROPHILS % 57.5 % (39.0-77.0); PLATELET COUNT 204 10^3/UL (140-415); RED BLOOD COUNT 4.41 10^6/ul (4.20-5.40); RED CELL DISTRIBUTION WIDTH 18.1 % (11.5-14.5)
[2018-03-27 06:26] LABS: WHITE BLOOD COUNT 4.7 10^3/ul (4.8-10.8)
[2018-03-27 06:35] LABS: MAGNESIUM 1.9 mg/dl (1.7-2.5)
[2018-03-27 06:35] LABS: PHOSPHORUS 3.6 mg/dl (2.5-4.9)
[2018-03-27 06:45] LABS: ANION GAP 7 (5-13); BLOOD UREA NITROGEN 44 mg/dl (7-20); CALCIUM 8.9 mg/dl (8.4-10.2); CARBON DIOXIDE 29 mmol/L (21-31); CHLORIDE 103 mmol/L (97-110); CREATININE 1.39 mg/dl (0.44-1.00); GLUCOSE 189 mg/dl (70-220); POTASSIUM 4.1 mmol/L (3.5-5.1); SODIUM 139 mmol/L (135-144)
[2018-03-27] MEDS: INSULIN ASPART [NOVOLOG] 3 ML PEN SC ×7 (07:30→20:42)
[2018-03-27] MEDS: TIOTROPIUM 18 MCG CAPSULE INHA DEV INH (08:26)
[2018-03-27] MEDS: FLUTICASONE/VILANTEROL 100-25 INH (08:26)
[2018-03-27] MEDS: SODIUM HYPOCHLORITE (1/40) 1 APPLIC BTL IRR (08:26)
[2018-03-27] MEDS: DILTIAZEM (CD) 120 MG CAP PO ×2 (08:27→20:35)
[2018-03-27] MEDS: FUROSEMIDE 40 MG INJ IV (08:27)
[2018-03-27] MEDS: ASPIRIN 81 MG TAB PO (08:27)
[2018-03-27] MEDS: APIXABAN 5 MG TABLET PO ×2 (08:27→20:35)
[2018-03-27] MEDS: AMMONIUM LACTATE 12% 225 GM LOT TOP (08:28)
[2018-03-27] MEDS: CLOTRIMAZOLE 1% 30 GM CR TOP ×2 (08:28)
[2018-03-27] MEDS: PSYLLIUM 28% PACKET PO (08:29)
[2018-03-27] MEDS: METOPROLOL 25 MG TAB PO ×2 (08:30→20:36)
[2018-03-27] MEDS: LINAGLIPTIN 5 MG TABLET PO (08:30)
[2018-03-27] MEDS: INSULIN GLARGINE [LANTus] (100 UNITS/ML) SYG SC (08:40)
[2018-03-27] MEDS: DIGOXIN 0.125 MG TAB PO (13:35)
[2018-03-28] MEDS: CLOTRIMAZOLE 1% 30 GM CR TOP ×6 (00:46→21:37)
[2018-03-28] MEDS: ACETAMINOPHEN 325 MG TAB PO ×2 (00:53→12:10)
[2018-03-28 06:17] LABS: ADD MAN DIFF? NO
[2018-03-28 06:19] LABS: WHITE BLOOD COUNT 4.3 10^3/ul (4.8-10.8)
[2018-03-28 06:19] LABS: BASOPHILS % 0.5 % (0.0-2.0); EOSINOPHILS # 0.2 10^3/ul (0.0-0.5); EOSINOPHILS % 3.7 % (0.0-7.0); HEMATOCRIT 31.3 % (37.0-47.0); HEMOGLOBIN 9.5 g/dl (12.0-16.0); LYMPHOCYTES % 22.8 % (15.0-51.0); MEAN CORPUSCULAR HEMOGLOBIN 23.1 pg (29.0-33.0); MEAN CORPUSCULAR HGB CONC 30.4 g/dl (32.0-37.0); MEAN PLATELET VOLUME 11.9 fl (7.4-10.4); MONOCYTE # 0.6 10^3/ul (0.3-0.9); MONOCYTES % 14.3 % (0.0-11.0); NEUTROPHIL # 2.5 10^3/ul (1.6-7.5); NEUTROPHILS % 58.5 % (39.0-77.0); PLATELET COUNT 186 10^3/UL (140-415); RED BLOOD COUNT 4.12 10^6/ul (4.20-5.40); RED CELL DISTRIBUTION WIDTH 17.6 % (11.5-14.5)
[2018-03-28 06:48] LABS: ANION GAP 9 (5-13); BLOOD UREA NITROGEN 49 mg/dl (7-20); CARBON DIOXIDE 29 mmol/L (21-31); CHLORIDE 101 mmol/L (97-110); CREATININE 1.49 mg/dl (0.44-1.00); GLUCOSE 173 mg/dl (70-220); PHOSPHORUS 3.9 mg/dl (2.5-4.9); POTASSIUM 4.5 mmol/L (3.5-5.1); SODIUM 139 mmol/L (135-144)
[2018-03-28] MEDS: ALBUTEROL/IPRATROPIUM (NEB) 3 ML AMP HHN (07:40)
[2018-03-28] MEDS: INSULIN ASPART [NOVOLOG] 3 ML PEN SC ×7 (08:10→21:00)
[2018-03-28] MEDS: PSYLLIUM 28% PACKET PO (08:44)
[2018-03-28] MEDS: APIXABAN 5 MG TABLET PO ×2 (08:46→21:43)
[2018-03-28] MEDS: ASPIRIN 81 MG TAB PO (08:46)
[2018-03-28] MEDS: LINAGLIPTIN 5 MG TABLET PO (08:46)
[2018-03-28] MEDS: FLUTICASONE/VILANTEROL 100-25 INH (08:47)
[2018-03-28] MEDS: TIOTROPIUM 18 MCG CAPSULE INHA DEV INH (08:48)
[2018-03-28] MEDS: METOPROLOL 25 MG TAB PO ×2 (08:50→21:38)
[2018-03-28] MEDS: DILTIAZEM (CD) 120 MG CAP PO ×2 (08:50→21:44)
[2018-03-28] MEDS: FUROSEMIDE 40 MG INJ IV ×2 (08:51→17:39)
[2018-03-28] MEDS: SODIUM HYPOCHLORITE (1/40) 1 APPLIC BTL IRR (08:53)
[2018-03-28] MEDS: AMMONIUM LACTATE 12% 225 GM LOT TOP (08:53)
[2018-03-28] MEDS: INSULIN GLARGINE [LANTus] (100 UNITS/ML) SYG SC (09:06)
[2018-03-28] MEDS: DIGOXIN 0.125 MG TAB PO (13:11)
[2018-03-29 05:32] LABS: ADD MAN DIFF? NO
[2018-03-29 05:43] LABS: ABNORMAL IP MESSAGE 1; BASOPHILS % 0.5 % (0.0-2.0); EOSINOPHILS # 0.1 10^3/ul (0.0-0.5); EOSINOPHILS % 3.1 % (0.0-7.0); HEMOGLOBIN 9.7 g/dl (12.0-16.0); LYMPHOCYTES % 24.4 % (15.0-51.0); MEAN CORPUSCULAR HEMOGLOBIN 23.1 pg (29.0-33.0); MEAN CORPUSCULAR HGB CONC 30.3 g/dl (32.0-37.0); MEAN CORPUSCULAR VOLUME 76.2 fl (82.0-101.0); MEAN PLATELET VOLUME 11.8 fl (7.4-10.4); MONOCYTE # 0.6 10^3/ul (0.3-0.9); MONOCYTES % 13.5 % (0.0-11.0); NEUTROPHIL # 2.5 10^3/ul (1.6-7.5); NEUTROPHILS % 58.3 % (39.0-77.0); PLATELET COUNT 189 10^3/UL (140-415); RED CELL DISTRIBUTION WIDTH 17.7 % (11.5-14.5)
[2018-03-29 05:43] LABS: WHITE BLOOD COUNT 4.2 10^3/ul (4.8-10.8)
[2018-03-29 05:45] LABS: POSITIVE DIFF @See below
[2018-03-29] MEDS: FUROSEMIDE 40 MG INJ IV ×2 (06:05→17:30)
[2018-03-29 06:08] LABS: ANION GAP 9 (5-13); BLOOD UREA NITROGEN 54 mg/dl (7-20); CALCIUM 9.1 mg/dl (8.4-10.2); CARBON DIOXIDE 30 mmol/L (21-31); CHLORIDE 100 mmol/L (97-110); CREATININE 1.54 mg/dl (0.44-1.00); GLUCOSE 151 mg/dl (70-220); MAGNESIUM 2.1 mg/dl (1.7-2.5); POTASSIUM 4.3 mmol/L (3.5-5.1); SODIUM 139 mmol/L (135-144)
[2018-03-29] MEDS: INSULIN ASPART [NOVOLOG] 3 ML PEN SC ×7 (07:48→20:37)
[2018-03-29] MEDS: PSYLLIUM 28% PACKET PO (08:37)
[2018-03-29] MEDS: LINAGLIPTIN 5 MG TABLET PO (08:37)
[2018-03-29] MEDS: METOPROLOL 25 MG TAB PO ×2 (08:38→20:24)
[2018-03-29] MEDS: ASPIRIN 81 MG TAB PO (08:39)
[2018-03-29] MEDS: APIXABAN 5 MG TABLET PO ×2 (08:39→20:24)
[2018-03-29] MEDS: DILTIAZEM (CD) 120 MG CAP PO ×2 (08:39→22:11)
[2018-03-29] MEDS: TIOTROPIUM 18 MCG CAPSULE INHA DEV INH (08:41)
[2018-03-29] MEDS: FLUTICASONE/VILANTEROL 100-25 INH (08:41)
[2018-03-29] MEDS: AMMONIUM LACTATE 12% 225 GM LOT TOP (08:43)
[2018-03-29] MEDS: SODIUM HYPOCHLORITE (1/40) 1 APPLIC BTL IRR (08:43)
[2018-03-29] MEDS: CLOTRIMAZOLE 1% 30 GM CR TOP ×4 (08:43→20:38)
[2018-03-29] MEDS: INSULIN GLARGINE [LANTus] (100 UNITS/ML) SYG SC (08:47)
[2018-03-29] MEDS: METOLAZONE 5 MG TAB PO (12:56)
[2018-03-29] MEDS: ALBUTEROL/IPRATROPIUM (NEB) 3 ML AMP HHN ×2 (14:00→19:43)
[2018-03-29] MEDS: DIGOXIN 0.125 MG TAB PO (14:46)
[2018-03-29] MEDS: SOD FERRIC GLUC COMPLX 125 MG in SOD CHLORIDE 0.9% 100 ML IVPB (14:47)
[2018-03-29 15:06] LABS: CREATININE, RANDOM URINE 89 mg/dL (20-275); MICROALBUMIN 3.6 mg/dL; MICROALBUMIN/CREATININE RATIO 40 (<30)
[2018-03-29] MEDS: HYDROCODONE/APAP (5/325) TAB PO (20:25)
[2018-03-30] MEDS: ALBUTEROL/IPRATROPIUM (NEB) 3 ML AMP HHN ×4 (01:32→20:23)
[2018-03-30 05:30] LABS: ADD MAN DIFF? NO
[2018-03-30 05:36] LABS: BASOPHILS % 0.8 % (0.0-2.0); EOSINOPHILS # 0.1 10^3/ul (0.0-0.5); EOSINOPHILS % 2.9 % (0.0-7.0); HEMATOCRIT 31.2 % (37.0-47.0); HEMOGLOBIN 9.4 g/dl (12.0-16.0); MEAN CORPUSCULAR HGB CONC 30.1 g/dl (32.0-37.0); MEAN CORPUSCULAR VOLUME 76.3 fl (82.0-101.0); MEAN PLATELET VOLUME 11.8 fl (7.4-10.4); MONOCYTE # 0.7 10^3/ul (0.3-0.9); MONOCYTES % 13.2 % (0.0-11.0); NEUTROPHILS % 61.7 % (39.0-77.0); PLATELET COUNT 198 10^3/UL (140-415); RED BLOOD COUNT 4.09 10^6/ul (4.20-5.40); RED CELL DISTRIBUTION WIDTH 17.9 % (11.5-14.5)
[2018-03-30 05:36] LABS: WHITE BLOOD COUNT 4.9 10^3/ul (4.8-10.8)
[2018-03-30] MEDS: FUROSEMIDE 40 MG INJ IV ×2 (06:05→17:50)
[2018-03-30 06:24] LABS: ANION GAP 7 (5-13); BLOOD UREA NITROGEN 54 mg/dl (7-20); CALCIUM 9.1 mg/dl (8.4-10.2); CARBON DIOXIDE 29 mmol/L (21-31); CHLORIDE 103 mmol/L (97-110); CREATININE 1.46 mg/dl (0.44-1.00); GLUCOSE 153 mg/dl (70-220); MAGNESIUM 2.2 mg/dl (1.7-2.5); PHOSPHORUS 3.7 mg/dl (2.5-4.9); POTASSIUM 4.5 mmol/L (3.5-5.1); SODIUM 139 mmol/L (135-144)
[2018-03-30] MEDS: ASPIRIN 81 MG TAB PO (08:16)
[2018-03-30] MEDS: PSYLLIUM 28% PACKET PO (08:17)
[2018-03-30] MEDS: APIXABAN 5 MG TABLET PO ×2 (08:17→20:14)
[2018-03-30] MEDS: METOPROLOL 25 MG TAB PO ×2 (08:17→20:14)
[2018-03-30] MEDS: LINAGLIPTIN 5 MG TABLET PO (08:18)
[2018-03-30] MEDS: DILTIAZEM (CD) 120 MG CAP PO ×2 (08:18→20:14)
[2018-03-30] MEDS: TIOTROPIUM 18 MCG CAPSULE INHA DEV INH (08:19)
[2018-03-30] MEDS: INSULIN ASPART [NOVOLOG] 3 ML PEN SC ×7 (08:22→20:21)
[2018-03-30] MEDS: INSULIN GLARGINE [LANTus] (100 UNITS/ML) SYG SC (08:24)
[2018-03-30] MEDS: SODIUM HYPOCHLORITE (1/40) 1 APPLIC BTL IRR (08:25)
[2018-03-30] MEDS: CLOTRIMAZOLE 1% 30 GM CR TOP ×3 (08:25→22:32)
[2018-03-30] MEDS: FLUTICASONE/VILANTEROL 100-25 INH (08:26)
[2018-03-30] MEDS: AMMONIUM LACTATE 12% 225 GM LOT TOP (08:27)
[2018-03-30] MEDS: METOLAZONE 5 MG TAB PO (10:17)
[2018-03-30] MEDS: HYDROCODONE/APAP (5/325) TAB PO ×2 (13:23→19:59)
[2018-03-30] MEDS: DIGOXIN 0.125 MG TAB PO (15:47)
[2018-03-30] MEDS: SOD FERRIC GLUC COMPLX 125 MG in SOD CHLORIDE 0.9% 100 ML IVPB (17:40)
[2018-03-31] MEDS: ALBUTEROL/IPRATROPIUM (NEB) 3 ML AMP HHN ×4 (01:06→19:53)
[2018-03-31] MEDS: FUROSEMIDE 40 MG INJ IV (06:10)
[2018-03-31 06:28] LABS: ADD MAN DIFF? NO
[2018-03-31 06:36] LABS: BASOPHILS % 0.2 % (0.0-2.0); EOSINOPHILS # 0.1 10^3/ul (0.0-0.5); EOSINOPHILS % 2.1 % (0.0-7.0); HEMATOCRIT 30.4 % (37.0-47.0); HEMOGLOBIN 9.4 g/dl (12.0-16.0); LYMPHOCYTES # 1.1 10^3/ul (0.8-2.9); LYMPHOCYTES % 19.6 % (15.0-51.0); MEAN CORPUSCULAR HEMOGLOBIN 22.8 pg (29.0-33.0); MEAN CORPUSCULAR HGB CONC 30.9 g/dl (32.0-37.0); MEAN CORPUSCULAR VOLUME 73.6 fl (82.0-101.0); MEAN PLATELET VOLUME 11.8 fl (7.4-10.4); MONOCYTE # 0.5 10^3/ul (0.3-0.9); MONOCYTES % 9.5 % (0.0-11.0); NEUTROPHIL # 3.9 10^3/ul (1.6-7.5); NEUTROPHILS % 68.4 % (39.0-77.0); PLATELET COUNT 202 10^3/UL (140-415); RED BLOOD COUNT 4.13 10^6/ul (4.20-5.40); RED CELL DISTRIBUTION WIDTH 18.2 % (11.5-14.5)
[2018-03-31 06:36] LABS: WHITE BLOOD COUNT 5.7 10^3/ul (4.8-10.8)
[2018-03-31 07:04] LABS: ANION GAP 8 (5-13); BLOOD UREA NITROGEN 57 mg/dl (7-20); CALCIUM 9.4 mg/dl (8.4-10.2); CARBON DIOXIDE 32 mmol/L (21-31); CHLORIDE 100 mmol/L (97-110); CREATININE 1.43 mg/dl (0.44-1.00); GLUCOSE 163 mg/dl (70-220); MAGNESIUM 2.3 mg/dl (1.7-2.5); POTASSIUM 4.3 mmol/L (3.5-5.1); SODIUM 140 mmol/L (135-144)
[2018-03-31] MEDS: INSULIN GLARGINE [LANTus] (100 UNITS/ML) SYG SC (08:41)
[2018-03-31] MEDS: INSULIN ASPART [NOVOLOG] 3 ML PEN SC ×7 (08:42→20:17)
[2018-03-31] MEDS: DILTIAZEM (CD) 120 MG CAP PO ×2 (09:03→20:13)
[2018-03-31] MEDS: ASPIRIN 81 MG TAB PO (09:03)
[2018-03-31] MEDS: PSYLLIUM 28% PACKET PO (09:03)
[2018-03-31] MEDS: LINAGLIPTIN 5 MG TABLET PO (09:03)
[2018-03-31] MEDS: APIXABAN 5 MG TABLET PO ×2 (09:03→20:12)
[2018-03-31] MEDS: METOLAZONE 5 MG TAB PO (09:03)
[2018-03-31] MEDS: METOPROLOL 25 MG TAB PO ×2 (09:03→20:12)
[2018-03-31] MEDS: CLOTRIMAZOLE 1% 30 GM CR TOP ×2 (09:04→20:12)
[2018-03-31] MEDS: TIOTROPIUM 18 MCG CAPSULE INHA DEV INH (09:04)
[2018-03-31] MEDS: FLUTICASONE/VILANTEROL 100-25 INH (09:04)
[2018-03-31] MEDS: SODIUM HYPOCHLORITE (1/40) 1 APPLIC BTL IRR (09:05)
[2018-03-31] MEDS: AMMONIUM LACTATE 12% 225 GM LOT TOP (09:05)
[2018-03-31] MEDS: DIGOXIN 0.125 MG TAB PO (12:40)
[2018-03-31] MEDS: SOD FERRIC GLUC COMPLX 125 MG in SOD CHLORIDE 0.9% 100 ML IVPB (12:40)
[2018-03-31] MEDS: BUMETANIDE 1 MG TAB PO (17:44)
[2018-03-31] MEDS: HYDROCODONE/APAP (5/325) TAB PO (17:44)
[2018-04-01] MEDS: HYDROCODONE/APAP (5/325) TAB PO ×2 (01:33→22:14)
[2018-04-01] MEDS: ALBUTEROL/IPRATROPIUM (NEB) 3 ML AMP HHN ×4 (01:44→19:32)
[2018-04-01 06:05] LABS: ADD MAN DIFF? NO
[2018-04-01 06:08] LABS: BASOPHILS % 0.4 % (0.0-2.0); EOSINOPHILS # 0.1 10^3/ul (0.0-0.5); EOSINOPHILS % 2.4 % (0.0-7.0); HEMOGLOBIN 9.1 g/dl (12.0-16.0); LYMPHOCYTES # 1.1 10^3/ul (0.8-2.9); MEAN CORPUSCULAR HEMOGLOBIN 23.2 pg (29.0-33.0); MEAN CORPUSCULAR HGB CONC 31.4 g/dl (32.0-37.0); MEAN CORPUSCULAR VOLUME 73.8 fl (82.0-101.0); MEAN PLATELET VOLUME 12.1 fl (7.4-10.4); MONOCYTE # 0.6 10^3/ul (0.3-0.9); MONOCYTES % 10.3 % (0.0-11.0); NEUTROPHIL # 3.5 10^3/ul (1.6-7.5); NEUTROPHILS % 65.3 % (39.0-77.0); PLATELET COUNT 190 10^3/UL (140-415); RED BLOOD COUNT 3.93 10^6/ul (4.20-5.40); RED CELL DISTRIBUTION WIDTH 18.3 % (11.5-14.5)
[2018-04-01 06:08] LABS: WHITE BLOOD COUNT 5.4 10^3/ul (4.8-10.8)
[2018-04-01 06:28] LABS: ANION GAP 10 (5-13); BLOOD UREA NITROGEN 65 mg/dl (7-20); CALCIUM 9.5 mg/dl (8.4-10.2); CARBON DIOXIDE 33 mmol/L (21-31); CHLORIDE 97 mmol/L (97-110); CREATININE 1.52 mg/dl (0.44-1.00); GLUCOSE 110 mg/dl (70-220); MAGNESIUM 2.2 mg/dl (1.7-2.5); PHOSPHORUS 4.6 mg/dl (2.5-4.9); POTASSIUM 4.4 mmol/L (3.5-5.1); SODIUM 140 mmol/L (135-144)
[2018-04-01] MEDS: BUMETANIDE 1 MG TAB PO ×2 (06:54→18:00)
[2018-04-01] MEDS: INSULIN ASPART [NOVOLOG] 3 ML PEN SC ×7 (08:00→20:13)
[2018-04-01] MEDS: CLOTRIMAZOLE 1% 30 GM CR TOP ×2 (08:17→20:18)
[2018-04-01] MEDS: BALSAM PERU/CASTOR OIL 60 GM TUBE TOP (08:18)
[2018-04-01] MEDS: INSULIN GLARGINE [LANTus] (100 UNITS/ML) SYG SC (08:20)
[2018-04-01] MEDS: PSYLLIUM 28% PACKET PO (08:20)
[2018-04-01] MEDS: METOPROLOL 25 MG TAB PO ×2 (08:20→20:15)
[2018-04-01] MEDS: ASPIRIN 81 MG TAB PO (08:20)
[2018-04-01] MEDS: LINAGLIPTIN 5 MG TABLET PO (08:21)
[2018-04-01] MEDS: TIOTROPIUM 18 MCG CAPSULE INHA DEV INH (08:21)
[2018-04-01] MEDS: SODIUM HYPOCHLORITE (1/40) 1 APPLIC BTL IRR (08:21)
[2018-04-01] MEDS: AMMONIUM LACTATE 12% 225 GM LOT TOP (08:21)
[2018-04-01] MEDS: DILTIAZEM (CD) 120 MG CAP PO ×2 (08:21→20:17)
[2018-04-01] MEDS: APIXABAN 5 MG TABLET PO ×2 (08:21→20:16)
[2018-04-01] MEDS: FLUTICASONE/VILANTEROL 100-25 INH (08:21)
[2018-04-01] MEDS: SOD FERRIC GLUC COMPLX 125 MG in SOD CHLORIDE 0.9% 100 ML IVPB (15:34)
[2018-04-01] MEDS: DIGOXIN 0.125 MG TAB PO (15:34)
[2018-04-02] MEDS: ALBUTEROL/IPRATROPIUM (NEB) 3 ML AMP HHN ×4 (01:29→19:12)
[2018-04-02] MEDS: HYDROCODONE/APAP (5/325) TAB PO ×2 (06:06→21:18)
[2018-04-02] MEDS: INSULIN ASPART [NOVOLOG] 3 ML PEN SC ×7 (08:21→21:00)
[2018-04-02] MEDS: INSULIN GLARGINE [LANTus] (100 UNITS/ML) SYG SC (08:22)
[2018-04-02] MEDS: PSYLLIUM 28% PACKET PO (09:00)
[2018-04-02] MEDS: FLUTICASONE/VILANTEROL 100-25 INH (09:10)
[2018-04-02] MEDS: TIOTROPIUM 18 MCG CAPSULE INHA DEV INH (09:10)
[2018-04-02] MEDS: METOPROLOL 25 MG TAB PO ×2 (09:11→21:19)
[2018-04-02] MEDS: APIXABAN 5 MG TABLET PO ×2 (09:11→21:19)
[2018-04-02] MEDS: DILTIAZEM (CD) 120 MG CAP PO ×2 (09:11→22:28)
[2018-04-02] MEDS: LINAGLIPTIN 5 MG TABLET PO (09:12)
[2018-04-02] MEDS: ASPIRIN 81 MG TAB PO (09:12)
[2018-04-02] MEDS: CLOTRIMAZOLE 1% 30 GM CR TOP ×2 (09:13→22:27)
[2018-04-02] MEDS: SODIUM HYPOCHLORITE (1/40) 1 APPLIC BTL IRR (09:13)
[2018-04-02] MEDS: BALSAM PERU/CASTOR OIL 60 GM TUBE TOP (09:13)
[2018-04-02] MEDS: AMMONIUM LACTATE 12% 225 GM LOT TOP (09:13)
[2018-04-02] MEDS: BUMETANIDE 1 MG TAB PO ×2 (09:17→17:44)
[2018-04-02] MEDS: DIGOXIN 0.125 MG TAB PO (13:14)
[2018-04-02] MEDS: SOD FERRIC GLUC COMPLX 125 MG in SOD CHLORIDE 0.9% 100 ML IVPB (14:02)
[2018-04-03] MEDS: ALBUTEROL/IPRATROPIUM (NEB) 3 ML AMP HHN ×2 (01:16→08:00)
[2018-04-03] MEDS: BUMETANIDE 1 MG TAB PO (05:27)
[2018-04-03] MEDS: INSULIN ASPART [NOVOLOG] 3 ML PEN SC ×4 (08:00→13:13)
[2018-04-03] MEDS: INSULIN GLARGINE [LANTus] (100 UNITS/ML) SYG SC (08:01)
[2018-04-03] MEDS: DILTIAZEM (CD) 120 MG CAP PO (08:16)
[2018-04-03] MEDS: PSYLLIUM 28% PACKET PO (08:16)
[2018-04-03] MEDS: HYDROCODONE/APAP (5/325) TAB PO ×2 (08:17→14:25)
[2018-04-03] MEDS: METOPROLOL 25 MG TAB PO (08:17)
[2018-04-03] MEDS: LINAGLIPTIN 5 MG TABLET PO (08:17)
[2018-04-03] MEDS: APIXABAN 5 MG TABLET PO (08:17)
[2018-04-03] MEDS: ASPIRIN 81 MG TAB PO (08:17)
[2018-04-03] MEDS: CLOTRIMAZOLE 1% 30 GM CR TOP (08:18)
[2018-04-03] MEDS: FLUTICASONE/VILANTEROL 100-25 INH (08:18)
[2018-04-03] MEDS: AMMONIUM LACTATE 12% 225 GM LOT TOP (08:19)
[2018-04-03] MEDS: SODIUM HYPOCHLORITE (1/40) 1 APPLIC BTL IRR (08:19)
[2018-04-03] MEDS: BALSAM PERU/CASTOR OIL 60 GM TUBE TOP ×2 (08:19→09:00)
[2018-04-03 09:47] LABS: ANION GAP 11 (5-13); BLOOD UREA NITROGEN 73 mg/dl (7-20); CALCIUM 9.3 mg/dl (8.4-10.2); CARBON DIOXIDE 34 mmol/L (21-31); CHLORIDE 94 mmol/L (97-110); CREATININE 1.67 mg/dl (0.44-1.00); GLUCOSE 113 mg/dl (70-220); POTASSIUM 4.3 mmol/L (3.5-5.1); SODIUM 139 mmol/L (135-144)
[2018-04-03] MEDS: TIOTROPIUM 18 MCG CAPSULE INHA DEV INH (10:19)
[2018-04-03] MEDS: DIGOXIN 0.125 MG TAB PO (13:14)
== END 2018-04-03 17:10 | disposition home health service (06) | DRG 264 ==
LOC: 2NE 03-29 17:37 → E/R 14:23 → 6WM 17:43
PROC: 0JBL0ZZ Excision of Right Upper Leg Subcutaneous Tissue and Fascia, Open Approach (ICD-10-PCS; principal; 2018-03-23)
DX: I11.0 Hypertensive heart disease with heart failure (principal); J96.01 Acute respiratory failure with hypoxia; G92 Toxic encephalopathy; L97.819 Non-pressure chronic ulcer of other part of right lower leg with unspecified severity; N17.9 Acute kidney failure, unspecified; I50.43 Acute on chronic combined systolic (congestive) and diastolic (congestive) heart failure; I48.0 Paroxysmal atrial fibrillation; I13.0 Hypertensive heart and chronic kidney disease with heart failure and stage 1 through stage 4 chronic kidney disease, or unspecified chronic kidney disease; N18.9 Chronic kidney disease, unspecified; E11.22 Type 2 diabetes mellitus with diabetic chronic kidney disease; I35.0 Nonrheumatic aortic (valve) stenosis; B35.3 Tinea pedis; B35.1 Tinea unguium; E11.40 Type 2 diabetes mellitus with diabetic neuropathy, unspecified; I87.2 Venous insufficiency (chronic) (peripheral); E11.51 Type 2 diabetes mellitus with diabetic peripheral angiopathy without gangrene; E11.622 Type 2 diabetes mellitus with other skin ulcer; J44.9 Chronic obstructive pulmonary disease, unspecified; E11.42 Type 2 diabetes mellitus with diabetic polyneuropathy; D50.9 Iron deficiency anemia, unspecified; Z86.711 Personal history of pulmonary embolism
CPT/HCPCS: 71045; 80048; 81001; 81003; 82043; 82962; 83036; 83735; 83880; 84100; 84155; 84300; 84484; 85025; 85610; 85730; 93005; 93922; 93970; 93971; 94640; 94664; 97110; 97116; 97161; 97530; 99291-25

== ENCOUNTER 2018-05-29 14:32 | Inpatient (IN) | payer MEDICARE, BC ==
[2018-05-29 15:06] LABS: ADD MAN DIFF? NO
[2018-05-29 15:10] LABS: ABNORMAL IP MESSAGE 1; BASOPHILS % 0.4 % (0.0-2.0); EOSINOPHILS # 0.1 10^3/ul (0.0-0.5); EOSINOPHILS % 0.9 % (0.0-7.0); HEMATOCRIT 35.8 % (37.0-47.0); HEMOGLOBIN 10.5 g/dl (12.0-16.0); LYMPHOCYTES # 0.9 10^3/ul (0.8-2.9); LYMPHOCYTES % 16.5 % (15.0-51.0); MEAN CORPUSCULAR HEMOGLOBIN 22.6 pg (29.0-33.0); MEAN CORPUSCULAR HGB CONC 29.3 g/dl (32.0-37.0); MEAN PLATELET VOLUME 10.8 fl (7.4-10.4); MONOCYTE # 0.5 10^3/ul (0.3-0.9); MONOCYTES % 9.2 % (0.0-11.0); NEUTROPHILS % 72.8 % (39.0-77.0); PLATELET COUNT 232 10^3/UL (140-415); RED BLOOD COUNT 4.65 10^6/ul (4.20-5.40); RED CELL DISTRIBUTION WIDTH 20.3 % (11.5-14.5)
[2018-05-29 15:10] LABS: WHITE BLOOD COUNT 5.4 10^3/ul (4.8-10.8)
[2018-05-29 15:14] LABS: POSITIVE DIFF @See below
[2018-05-29 15:29] LABS: INR 1.53; PARTIAL THROMBOPLASTIN TIME 32.8 Sec (23.0-35.0); PROTIME 18.5 Sec (11.9-14.9); PT RATIO 1.4
[2018-05-29 15:33] LABS: ALANINE AMINOTRANSFERASE 25 IU/L (13-69); ALBUMIN 3.6 g/dl (3.3-4.9); ALBUMIN/GLOBULIN RATIO 1.02; ALKALINE PHOSPHATASE 115 IU/L (42-121); ANION GAP 13 (5-13); ASPARTATE AMINO TRANSFERASE 51 IU/L (15-46); BILIRUBIN,INDIRECT 0.3 mg/dl (0-1.1); BILIRUBIN,TOTAL 0.3 mg/dl (0.2-1.3); BLOOD UREA NITROGEN 24 mg/dl (7-20); CALCIUM 9.5 mg/dl (8.4-10.2); CARBON DIOXIDE 19 mmol/L (21-31); CHLORIDE 111 mmol/L (97-110); CREATININE 1.21 mg/dl (0.44-1.00); GLUCOSE 115 mg/dl (70-220); POTASSIUM 4.7 mmol/L (3.5-5.1); SODIUM 143 mmol/L (135-144); TOTAL PROTEIN 7.1 g/dl (6.1-8.1)
[2018-05-29 15:41] LABS: B-TYPE NATRIURETIC PEPTIDE 7160 PG/ML (0-450)
[2018-05-29 15:44] LABS: TROPONIN-I 0.022 ng/ml (0.000-0.120)
[2018-05-29] MEDS: FUROSEMIDE 40 MG INJ IV (16:34)
[2018-05-29] MEDS: VANCOMYCIN 1 GM (PMX) 250 ML IVPB (16:39)
[2018-05-29 17:41] LABS: ADD UMIC YES; UR ASCORBIC ACID NEGATIVE (NEGATIVE); UR BACTERIA FEW /HPF (NONE SEEN); UR BILIRUBIN (Dip) NEGATIVE (NEGATIVE); UR BLOOD (Dip) 1+ mg/dL (NEGATIVE); UR CLARITY SLIGHTLY CLOUDY (CLEAR); UR COLOR YELLOW (YELLOW); UR GLUCOSE (Dip) NEGATIVE (NEGATIVE); UR KETONES (Dip) NEGATIVE (NEGATIVE); UR LEUKOCYTE ESTERASE (Dip) TRACE Leu/ul (NEGATIVE); UR NITRITE (Dip) NEGATIVE (NEGATIVE); UR RBC 3 /HPF (0-5); UR SPECIFIC GRAVITY (Dip) 1.016 (1.003-1.030); UR SQUAMOUS EPITHELIAL CELL FEW /HPF (FEW); UR TOTAL PROTEIN (Dip) 1+ mg/dl (NEGATIVE); UR UROBILINOGEN (Dip) 2+ mg/dL (NEGATIVE); UR WBC 3 /HPF (0-5)
[2018-05-29] MEDS: PIPER-TAZO 2.25 GM (PMX) 50 ML IVPB (18:32)
[2018-05-29] MEDS ORDERED: DOCUSATE SODIUM 100 MG CAP PO (19:30)
[2018-05-29] MEDS ORDERED: ONDANSETRON 4 MG INJ IV (19:30)
[2018-05-29] MEDS ORDERED: NACL 0.9% 3 ML SYG IV (19:30)
[2018-05-29] MEDS ORDERED: VANCOMYCIN IV PER PHARMACY XX (19:30)
[2018-05-29 21:20] LABS: LACTIC ACID 1.3 mmol/L (0.5-2.0)
[2018-05-29] MEDS: CEFTRIAXONE 1 GM/50 ML (PMX) 50 ML IVPB (22:49)
[2018-05-29] MEDS: METOPROLOL 25 MG TAB PO (22:50)
[2018-05-29] MEDS: DILTIAZEM (CD) 120 MG CAP PO (22:50)
[2018-05-29] MEDS: APIXABAN 5 MG TABLET PO (22:51)
[2018-05-29] MEDS: CLOTRIMAZOLE 1% 30 GM CR TOP (22:52)
[2018-05-29] MEDS: INSULIN ASPART [NOVOLOG] 3 ML PEN SC (23:00)
[2018-05-29] MEDS: INSULIN GLARGINE [LANTus] (100 UNITS/ML) SYG SC (23:26)
[2018-05-30] MEDS: ALBUTEROL/IPRATROPIUM (NEB) 3 ML AMP HHN ×2 (00:56→11:10)
[2018-05-30] MEDS: ACCU-CHEK XX (02:00)
[2018-05-30] MEDS: PANTOPRAZOLE (EC) 40 MG TAB PO (05:09)
[2018-05-30] MEDS: HYDROCODONE/APAP (5/325) TAB PO (05:09)
[2018-05-30 06:47] LABS: ADD MAN DIFF? NO
[2018-05-30 06:52] LABS: BASOPHILS % 0.6 % (0.0-2.0); EOSINOPHILS # 0.1 10^3/ul (0.0-0.5); HEMATOCRIT 32.7 % (37.0-47.0); HEMOGLOBIN 9.7 g/dl (12.0-16.0); LYMPHOCYTES # 0.8 10^3/ul (0.8-2.9); LYMPHOCYTES % 16.6 % (15.0-51.0); MEAN CORPUSCULAR HEMOGLOBIN 22.8 pg (29.0-33.0); MEAN CORPUSCULAR HGB CONC 29.7 g/dl (32.0-37.0); MEAN CORPUSCULAR VOLUME 76.8 fl (82.0-101.0); MONOCYTE # 0.6 10^3/ul (0.3-0.9); MONOCYTES % 12.2 % (0.0-11.0); NEUTROPHIL # 3.4 10^3/ul (1.6-7.5); NEUTROPHILS % 68.2 % (39.0-77.0); NUCLEATED RED BLOOD CELLS% 0.4 /100WBC (0.0-0.0); PLATELET COUNT 232 10^3/UL (140-415); RED BLOOD COUNT 4.26 10^6/ul (4.20-5.40); RED CELL DISTRIBUTION WIDTH 19.9 % (11.5-14.5)
[2018-05-30 07:02] LABS: HEMOGLOBIN A1C 6.7 % (0-5.9)
[2018-05-30] MEDS: FUROSEMIDE 40 MG INJ IV ×2 (07:04→17:52)
[2018-05-30 07:12] LABS: ANION GAP 9 (5-13); BLOOD UREA NITROGEN 24 mg/dl (7-20); CALCIUM 9.3 mg/dl (8.4-10.2); CARBON DIOXIDE 22 mmol/L (21-31); CHLORIDE 112 mmol/L (97-110); CREATININE 1.44 mg/dl (0.44-1.00); GLUCOSE 121 mg/dl (70-220); MAGNESIUM 2.1 mg/dl (1.7-2.5); PHOSPHORUS 3.7 mg/dl (2.5-4.9); POTASSIUM 4.5 mmol/L (3.5-5.1); SODIUM 143 mmol/L (135-144)
[2018-05-30] MEDS: INSULIN ASPART [NOVOLOG] 3 ML PEN SC ×7 (07:53→21:00)
[2018-05-30] MEDS ORDERED: NON-FORMULARY/PATIENT OWN MED (Omeprazole* 20 MG) PO (09:00)
[2018-05-30] MEDS ORDERED: PSYLLIUM HUSK 0.52 GM PO (09:00)
[2018-05-30] MEDS: METOPROLOL 25 MG TAB PO ×2 (09:31→20:39)
[2018-05-30] MEDS: ASPIRIN 81 MG TAB PO (09:31)
[2018-05-30] MEDS: DILTIAZEM (CD) 120 MG CAP PO ×2 (09:31→20:38)
[2018-05-30] MEDS: TIOTROPIUM 18 MCG CAPSULE INHA DEV INH (09:31)
[2018-05-30] MEDS: PSYLLIUM 28% PACKET PO (09:32)
[2018-05-30] MEDS: CLOTRIMAZOLE 1% 30 GM CR TOP ×2 (09:32→21:55)
[2018-05-30] MEDS: APIXABAN 5 MG TABLET PO ×2 (09:32→20:35)
[2018-05-30] MEDS: FLUTICASONE/VILANTEROL 100-25 INH (12:56)
[2018-05-30] MEDS: DIGOXIN 0.125 MG TAB PO (12:57)
[2018-05-30] MEDS ORDERED: VANCOMYCIN 1 GM 250 ML IVPB (13:00)
[2018-05-30] MEDS: VANCOMYCIN HCL 1.5 GM in SOD CHLORIDE 0.9% 250 ML IVPB (16:30)
[2018-05-30] MEDS: CEFTRIAXONE 2 GM/NS 50 ML IVPB (21:26)
[2018-05-30] MEDS: INSULIN GLARGINE [LANTus] (100 UNITS/ML) SYG SC (21:54)
[2018-05-31] MEDS: morphine 2 MG INJ IV (00:13)
[2018-05-31] MEDS: ALBUTEROL/IPRATROPIUM (NEB) 3 ML AMP HHN ×5 (00:58→20:16)
[2018-05-31] MEDS: ACCU-CHEK XX (02:00)
[2018-05-31] MEDS: PANTOPRAZOLE (EC) 40 MG TAB PO (05:35)
[2018-05-31 06:52] LABS: ANION GAP 11 (5-13); BLOOD UREA NITROGEN 29 mg/dl (7-20); CALCIUM 9.1 mg/dl (8.4-10.2); CARBON DIOXIDE 21 mmol/L (21-31); CHLORIDE 108 mmol/L (97-110); CREATININE 1.97 mg/dl (0.44-1.00); GLUCOSE 71 mg/dl (70-220); POTASSIUM 5.2 mmol/L (3.5-5.1); SODIUM 140 mmol/L (135-144)
[2018-05-31] MEDS: INSULIN ASPART [NOVOLOG] 3 ML PEN SC ×7 (07:55→20:56)
[2018-05-31] MEDS: FLUTICASONE/VILANTEROL 100-25 INH (08:23)
[2018-05-31] MEDS: TIOTROPIUM 18 MCG CAPSULE INHA DEV INH (08:26)
[2018-05-31] MEDS: DILTIAZEM (CD) 120 MG CAP PO ×2 (08:26→20:37)
[2018-05-31] MEDS: METOPROLOL 25 MG TAB PO ×2 (08:27→20:37)
[2018-05-31] MEDS: APIXABAN 5 MG TABLET PO ×2 (08:27→20:38)
[2018-05-31] MEDS: PSYLLIUM 28% PACKET PO (08:27)
[2018-05-31] MEDS: ASPIRIN 81 MG TAB PO (08:27)
[2018-05-31] MEDS: CLOTRIMAZOLE 1% 30 GM CR TOP ×2 (08:28→20:36)
[2018-05-31] MEDS: FUROSEMIDE 40 MG INJ IV ×2 (08:32→17:07)
[2018-05-31] MEDS: DIGOXIN 0.125 MG TAB PO (12:06)
[2018-05-31] MEDS: METHYLPREDNISOLONE 125 MG INJ IV ×2 (12:52→20:36)
[2018-05-31] MEDS ORDERED: METHYLPREDNISOLONE 125 MG INJ IV (14:00)
[2018-05-31 14:48] LABS: ADD UMIC YES; UR ASCORBIC ACID NEGATIVE (NEGATIVE); UR BACTERIA FEW /HPF (NONE SEEN); UR BILIRUBIN (Dip) 1+ mg/dL (NEGATIVE); UR BLOOD (Dip) NEGATIVE (NEGATIVE); UR BUDDING YEAST MODERATE /HPF (NONE SEEN); UR CLARITY SLIGHTLY CLOUDY (CLEAR); UR COLOR AMBER (YELLOW); UR GLUCOSE (Dip) NEGATIVE (NEGATIVE); UR KETONES (Dip) TRACE mg/dL (NEGATIVE); UR LEUKOCYTE ESTERASE (Dip) 1+ Leu/ul (NEGATIVE); UR NITRITE (Dip) NEGATIVE (NEGATIVE); UR RBC 7 /HPF (0-5); UR SPECIFIC GRAVITY (Dip) 1.018 (1.003-1.030); UR TOTAL PROTEIN (Dip) 1+ mg/dl (NEGATIVE); UR UROBILINOGEN (Dip) 2+ mg/dL (NEGATIVE); UR WBC 8 /HPF (0-5)
[2018-05-31 14:54] LABS: SODIUM,URINE RANDOM 14 mmol/L (30-90)
[2018-05-31] MEDS: CEFTRIAXONE 2 GM/NS 50 ML IVPB (20:36)
[2018-05-31] MEDS: ZYVOX 600 MG TAB PO (20:37)
[2018-05-31] MEDS: INSULIN GLARGINE [LANTus] (100 UNITS/ML) SYG SC (20:56)
[2018-06-01] MEDS: ACCU-CHEK XX (02:00)
[2018-06-01] MEDS: ALBUTEROL/IPRATROPIUM (NEB) 3 ML AMP HHN ×6 (02:05→20:55)
[2018-06-01] MEDS: METHYLPREDNISOLONE 125 MG INJ IV (05:07)
[2018-06-01] MEDS: FUROSEMIDE 40 MG INJ IV (05:07)
[2018-06-01] MEDS: PANTOPRAZOLE (EC) 40 MG TAB PO (05:08)
[2018-06-01 06:52] LABS: ANION GAP 10 (5-13); BLOOD UREA NITROGEN 41 mg/dl (7-20); CALCIUM 8.9 mg/dl (8.4-10.2); CARBON DIOXIDE 20 mmol/L (21-31); CHLORIDE 106 mmol/L (97-110); CREATININE 2.35 mg/dl (0.44-1.00); GLUCOSE 263 mg/dl (70-220); PHOSPHORUS 5.1 mg/dl (2.5-4.9); POTASSIUM 5.4 mmol/L (3.5-5.1); SODIUM 136 mmol/L (135-144)
[2018-06-01] MEDS: TIOTROPIUM 18 MCG CAPSULE INHA DEV INH (08:14)
[2018-06-01] MEDS: APIXABAN 5 MG TABLET PO ×2 (08:14→20:37)
[2018-06-01] MEDS: ASPIRIN 81 MG TAB PO (08:14)
[2018-06-01] MEDS: ZYVOX 600 MG TAB PO ×2 (08:14→20:37)
[2018-06-01] MEDS: FLUTICASONE/VILANTEROL 100-25 INH (08:15)
[2018-06-01] MEDS: PSYLLIUM 28% PACKET PO (08:20)
[2018-06-01] MEDS: DILTIAZEM (CD) 120 MG CAP PO ×2 (08:21→20:37)
[2018-06-01] MEDS: METOPROLOL 25 MG TAB PO ×2 (08:21→20:37)
[2018-06-01] MEDS: CLOTRIMAZOLE 1% 30 GM CR TOP ×2 (08:22→20:37)
[2018-06-01] MEDS: INSULIN ASPART [NOVOLOG] 3 ML PEN SC ×8 (08:34→20:51)
[2018-06-01] MEDS: ALBUMIN HUMAN 25% 50 ML IV ×2 (10:20→18:01)
[2018-06-01] MEDS: DIGOXIN 0.125 MG TAB PO (12:18)
[2018-06-01 14:17] LABS: CREATININE, RANDOM URINE 174 mg/dL (20-275); MICROALBUMIN 18.4 mg/dL; MICROALBUMIN/CREATININE RATIO 106 (<30)
[2018-06-01 14:30] LABS: ANION GAP 11 (5-13); BLOOD UREA NITROGEN 45 mg/dl (7-20); CALCIUM 9.1 mg/dl (8.4-10.2); CARBON DIOXIDE 19 mmol/L (21-31); CHLORIDE 107 mmol/L (97-110); CREATININE 2.48 mg/dl (0.44-1.00); GLUCOSE 258 mg/dl (70-220); SODIUM 137 mmol/L (135-144)
[2018-06-01 14:32] LABS: POTASSIUM 5.3 mmol/L (3.5-5.1)
[2018-06-01] MEDS: CEFTRIAXONE 2 GM/NS 50 ML IVPB (20:52)
[2018-06-01] MEDS: INSULIN GLARGINE [LANTus] (100 UNITS/ML) SYG SC (21:02)
[2018-06-02] MEDS: ALBUTEROL/IPRATROPIUM (NEB) 3 ML AMP HHN ×7 (01:00→20:48)
[2018-06-02] MEDS: ALBUMIN HUMAN 25% 50 ML IV (01:56)
[2018-06-02] MEDS: ACCU-CHEK XX (01:59)
[2018-06-02] MEDS: PANTOPRAZOLE (EC) 40 MG TAB PO (05:47)
[2018-06-02] MEDS: METHYLPREDNISOLONE 125 MG INJ IV (05:47)
[2018-06-02] MEDS: INSULIN ASPART [NOVOLOG] 3 ML PEN SC ×7 (08:05→21:00)
[2018-06-02] MEDS: ASPIRIN 81 MG TAB PO (09:28)
[2018-06-02] MEDS: PSYLLIUM 28% PACKET PO (09:28)
[2018-06-02] MEDS: APIXABAN 5 MG TABLET PO ×2 (09:28→21:34)
[2018-06-02] MEDS: ZYVOX 600 MG TAB PO ×2 (09:28→21:35)
[2018-06-02] MEDS: TIOTROPIUM 18 MCG CAPSULE INHA DEV INH (09:28)
[2018-06-02] MEDS: FLUTICASONE/VILANTEROL 100-25 INH (09:30)
[2018-06-02] MEDS: DILTIAZEM (CD) 120 MG CAP PO ×2 (09:30→21:34)
[2018-06-02] MEDS: CLOTRIMAZOLE 1% 30 GM CR TOP ×2 (09:30→21:36)
[2018-06-02] MEDS: METOPROLOL 25 MG TAB PO ×2 (09:30→21:00)
[2018-06-02 10:15] LABS: ADD MAN DIFF? NO
[2018-06-02 10:16] LABS: WHITE BLOOD COUNT 11.3 10^3/ul (4.8-10.8)
[2018-06-02 10:16] LABS: ABNORMAL IP MESSAGE 1; BASOPHILS % 0.1 % (0.0-2.0); HEMATOCRIT 33.3 % (37.0-47.0); HEMOGLOBIN 9.9 g/dl (12.0-16.0); LYMPHOCYTES # 0.3 10^3/ul (0.8-2.9); LYMPHOCYTES % 2.7 % (15.0-51.0); MEAN CORPUSCULAR HEMOGLOBIN 22.4 pg (29.0-33.0); MEAN CORPUSCULAR HGB CONC 29.7 g/dl (32.0-37.0); MEAN CORPUSCULAR VOLUME 75.5 fl (82.0-101.0); MEAN PLATELET VOLUME 10.7 fl (7.4-10.4); MONOCYTE # 0.3 10^3/ul (0.3-0.9); MONOCYTES % 2.9 % (0.0-11.0); NEUTROPHIL # 10.6 10^3/ul (1.6-7.5); NEUTROPHILS % 93.6 % (39.0-77.0); NUCLEATED RED BLOOD CELLS% 0.2 /100WBC (0.0-0.0); PLATELET COUNT 274 10^3/UL (140-415); RED BLOOD COUNT 4.41 10^6/ul (4.20-5.40); RED CELL DISTRIBUTION WIDTH 19.7 % (11.5-14.5)
[2018-06-02 10:20] LABS: POSITIVE DIFF @See below
[2018-06-02 10:36] LABS: ANION GAP 15 (5-13); BLOOD UREA NITROGEN 53 mg/dl (7-20); CALCIUM 9.3 mg/dl (8.4-10.2); CARBON DIOXIDE 20 mmol/L (21-31); CHLORIDE 103 mmol/L (97-110); CREATININE 2.95 mg/dl (0.44-1.00); GLUCOSE 279 mg/dl (70-220); MAGNESIUM 2.1 mg/dl (1.7-2.5); PHOSPHORUS 5.9 mg/dl (2.5-4.9); POTASSIUM 5.6 mmol/L (3.5-5.1); SODIUM 138 mmol/L (135-144)
[2018-06-02] MEDS: DIGOXIN 0.125 MG TAB PO (13:52)
[2018-06-02] MEDS: HYDROCODONE/APAP (5/325) TAB PO (17:10)
[2018-06-02] MEDS: FUROSEMIDE 40 MG INJ IV (17:10)
[2018-06-02] MEDS: CEFEPIME 1GM/50 ML (PMX) 50 ML IVPB (21:34)
[2018-06-02] MEDS: INSULIN GLARGINE [LANTus] (100 UNITS/ML) SYG SC (21:44)
[2018-06-03] MEDS: ALBUTEROL/IPRATROPIUM (NEB) 3 ML AMP HHN ×6 (01:09→20:58)
[2018-06-03] MEDS: ACCU-CHEK XX (02:00)
[2018-06-03] MEDS: FUROSEMIDE 40 MG INJ IV ×2 (05:33→17:41)
[2018-06-03] MEDS: PANTOPRAZOLE (EC) 40 MG TAB PO (06:31)
[2018-06-03 06:37] LABS: ADD MAN DIFF? NO
[2018-06-03 06:45] LABS: WHITE BLOOD COUNT 10.2 10^3/ul (4.8-10.8)
[2018-06-03 06:45] LABS: ABNORMAL IP MESSAGE 1; BASOPHILS % 0.1 % (0.0-2.0); HEMOGLOBIN 10.1 g/dl (12.0-16.0); LYMPHOCYTES # 0.2 10^3/ul (0.8-2.9); LYMPHOCYTES % 2.3 % (15.0-51.0); MEAN CORPUSCULAR HEMOGLOBIN 22.5 pg (29.0-33.0); MEAN CORPUSCULAR HGB CONC 29.7 g/dl (32.0-37.0); MEAN CORPUSCULAR VOLUME 75.9 fl (82.0-101.0); MONOCYTE # 0.4 10^3/ul (0.3-0.9); MONOCYTES % 3.4 % (0.0-11.0); NEUTROPHIL # 9.5 10^3/ul (1.6-7.5); NEUTROPHILS % 93.5 % (39.0-77.0); NUCLEATED RED BLOOD CELLS # 0.1 10^3/ul (0.0-0.0); NUCLEATED RED BLOOD CELLS% 0.6 /100WBC (0.0-0.0); PLATELET COUNT 265 10^3/UL (140-415); RED BLOOD COUNT 4.48 10^6/ul (4.20-5.40); RED CELL DISTRIBUTION WIDTH 19.7 % (11.5-14.5)
[2018-06-03 06:49] LABS: POSITIVE DIFF @See below
[2018-06-03 07:03] LABS: ANION GAP 15 (5-13); BLOOD UREA NITROGEN 62 mg/dl (7-20); CALCIUM 8.9 mg/dl (8.4-10.2); CARBON DIOXIDE 19 mmol/L (21-31); CHLORIDE 104 mmol/L (97-110); GLUCOSE 154 mg/dl (70-220); MAGNESIUM 2.2 mg/dl (1.7-2.5); PHOSPHORUS 6.1 mg/dl (2.5-4.9); POTASSIUM 5.9 mmol/L (3.5-5.1); SODIUM 138 mmol/L (135-144)
[2018-06-03] MEDS: FLUCONAZOLE 100 MG TAB PO (08:05)
[2018-06-03] MEDS: APIXABAN 5 MG TABLET PO ×2 (08:05→21:34)
[2018-06-03] MEDS: ASPIRIN 81 MG TAB PO (08:05)
[2018-06-03] MEDS: ZYVOX 600 MG TAB PO ×2 (08:05→21:34)
[2018-06-03] MEDS: METOPROLOL 25 MG TAB PO (08:07)
[2018-06-03] MEDS: DILTIAZEM (CD) 120 MG CAP PO ×2 (08:07→21:00)
[2018-06-03] MEDS: PSYLLIUM 28% PACKET PO (08:07)
[2018-06-03] MEDS: FLUTICASONE/VILANTEROL 100-25 INH (08:08)
[2018-06-03] MEDS: CLOTRIMAZOLE 1% 30 GM CR TOP ×2 (08:08→21:34)
[2018-06-03] MEDS: INSULIN ASPART [NOVOLOG] 3 ML PEN SC ×6 (08:15→21:53)
[2018-06-03] MEDS: TIOTROPIUM 18 MCG CAPSULE INHA DEV INH (11:36)
[2018-06-03] MEDS: DIGOXIN 0.125 MG TAB PO (13:00)
[2018-06-03] MEDS: METHYLPREDNISOLONE 125 MG INJ IV ×3 (13:52→23:52)
[2018-06-03] MEDS: CEFEPIME 1GM/50 ML (PMX) 50 ML IVPB (21:33)
[2018-06-03] MEDS: INSULIN GLARGINE [LANTus] (100 UNITS/ML) SYG SC (21:53)
[2018-06-04] MEDS: ALBUTEROL/IPRATROPIUM (NEB) 3 ML AMP HHN ×6 (01:03→19:40)
[2018-06-04] MEDS: ACCU-CHEK XX (02:38)
[2018-06-04] MEDS: METHYLPREDNISOLONE 125 MG INJ IV ×3 (05:25→17:18)
[2018-06-04] MEDS: PANTOPRAZOLE (EC) 40 MG TAB PO (05:26)
[2018-06-04] MEDS: FUROSEMIDE 40 MG INJ IV ×2 (05:26→17:18)
[2018-06-04 07:25] LABS: ANION GAP 16 (5-13); BLOOD UREA NITROGEN 76 mg/dl (7-20); CALCIUM 9.1 mg/dl (8.4-10.2); CARBON DIOXIDE 17 mmol/L (21-31); CHLORIDE 105 mmol/L (97-110); CREATININE 3.88 mg/dl (0.44-1.00); GLUCOSE 208 mg/dl (70-220); PHOSPHORUS 7.1 mg/dl (2.5-4.9); SODIUM 138 mmol/L (135-144)
[2018-06-04 07:29] LABS: DIGOXIN 1.1 ng/ml (1.0-2.0)
[2018-06-04 07:33] LABS: POTASSIUM 6.2 mmol/L (3.5-5.1)
[2018-06-04] MEDS: APIXABAN 5 MG TABLET PO ×2 (08:09→20:36)
[2018-06-04] MEDS: FLUTICASONE/VILANTEROL 100-25 INH (08:09)
[2018-06-04] MEDS: TIOTROPIUM 18 MCG CAPSULE INHA DEV INH (08:09)
[2018-06-04] MEDS: PSYLLIUM 28% PACKET PO (08:09)
[2018-06-04] MEDS: CLOTRIMAZOLE 1% 30 GM CR TOP ×2 (08:09→20:41)
[2018-06-04] MEDS: ASPIRIN 81 MG TAB PO (08:10)
[2018-06-04] MEDS: ZYVOX 600 MG TAB PO ×2 (08:10→20:36)
[2018-06-04] MEDS: FLUCONAZOLE 100 MG TAB PO (08:10)
[2018-06-04] MEDS: INSULIN ASPART [NOVOLOG] 3 ML PEN SC ×7 (08:32→20:38)
[2018-06-04] MEDS: BUMETANIDE 1 MG INJ IV (09:37)
[2018-06-04] MEDS: SODIUM POLYSTYRENE 15 GM KIT (POWDER + SORBITOL) PO (10:35)
[2018-06-04] MEDS ORDERED: NA POLYST SULFON 15 GM/60 ML BTL (10:41)
[2018-06-04] MEDS: DIGOXIN 0.125 MG TAB PO (12:10)
[2018-06-04 14:50] LABS: ANION GAP 15 (5-13); BLOOD UREA NITROGEN 78 mg/dl (7-20); CALCIUM 9.1 mg/dl (8.4-10.2); CARBON DIOXIDE 19 mmol/L (21-31); CHLORIDE 103 mmol/L (97-110); CREATININE 4.17 mg/dl (0.44-1.00); GLUCOSE 182 mg/dl (70-220); SODIUM 137 mmol/L (135-144)
[2018-06-04] MEDS: CEFEPIME 1GM/50 ML (PMX) 50 ML IVPB (20:36)
[2018-06-04] MEDS: INSULIN GLARGINE [LANTus] (100 UNITS/ML) SYG SC (20:49)
[2018-06-04] MEDS: ZOLPIDEM 5 MG TAB PO (23:20)
[2018-06-05] MEDS: ALBUTEROL/IPRATROPIUM (NEB) 3 ML AMP HHN ×5 (01:12→21:00)
[2018-06-05] MEDS: ACCU-CHEK XX (02:00)
[2018-06-05] MEDS: HALOPERIDOL 5 MG INJ IM (03:21)
[2018-06-05] MEDS: BUMETANIDE 1 MG INJ IV (04:07)
[2018-06-05 04:32] LABS: AADO2 Arterial 69.5 mmHg (7.0-24.0); Allen Test ACCEPTAB; Arterial Base Excess -8.5 mmol/L (-3.0-3); Arterial Blood Gas Oxygen Sat 94.6 mmHG (95.0-100.0); Arterial COHb 0.1 % (0.0-3.0); Arterial Fraction of Oxyhgb 94.2 % (93.0-99.0); Arterial HCO3 19.3 mmol/L (22.0-26.0); Arterial MetHb 0.3 % (0.0-1.5); Arterial pCO2 49.5 mmhg (35-45); MODE NASAL CANNULA; Site Right Radial
[2018-06-05] MEDS: FUROSEMIDE 40 MG INJ IV ×2 (05:26→10:07)
[2018-06-05] MEDS: METHYLPREDNISOLONE 125 MG INJ IV ×3 (05:26→22:53)
[2018-06-05] MEDS: PANTOPRAZOLE (EC) 40 MG TAB PO (06:00)
[2018-06-05 06:22] LABS: ADD MAN DIFF? NO
[2018-06-05 06:31] LABS: ABNORMAL IP MESSAGE 1; BASOPHILS % 0.1 % (0.0-2.0); HEMATOCRIT 33.9 % (37.0-47.0); HEMOGLOBIN 10.2 g/dl (12.0-16.0); LYMPHOCYTES # 0.2 10^3/ul (0.8-2.9); LYMPHOCYTES % 2.4 % (15.0-51.0); MEAN CORPUSCULAR HEMOGLOBIN 22.1 pg (29.0-33.0); MEAN CORPUSCULAR HGB CONC 30.1 g/dl (32.0-37.0); MEAN CORPUSCULAR VOLUME 73.5 fl (82.0-101.0); MEAN PLATELET VOLUME 10.4 fl (7.4-10.4); MONOCYTE # 0.3 10^3/ul (0.3-0.9); MONOCYTES % 4.3 % (0.0-11.0); NEUTROPHIL # 6.5 10^3/ul (1.6-7.5); NEUTROPHILS % 92.6 % (39.0-77.0); NUCLEATED RED BLOOD CELLS # 0.1 10^3/ul (0.0-0.0); PLATELET COUNT 255 10^3/UL (140-415); RED BLOOD COUNT 4.61 10^6/ul (4.20-5.40); RED CELL DISTRIBUTION WIDTH 19.9 % (11.5-14.5)
[2018-06-05 06:41] LABS: POSITIVE DIFF @See below
[2018-06-05 06:48] LABS: ANION GAP 17 (5-13); BLOOD UREA NITROGEN 85 mg/dl (7-20); CARBON DIOXIDE 19 mmol/L (21-31); CHLORIDE 104 mmol/L (97-110); CREATININE 4.44 mg/dl (0.44-1.00); GLUCOSE 91 mg/dl (70-220); POTASSIUM 5.6 mmol/L (3.5-5.1); SODIUM 140 mmol/L (135-144)
[2018-06-05] MEDS: INSULIN ASPART [NOVOLOG] 3 ML PEN SC ×7 (07:55→20:09)
[2018-06-05 08:30] LABS: AADO2 Arterial 100.4 mmHg (7.0-24.0); Allen Test ACCEPTAB; Arterial Base Excess -7.6 mmol/L (-3.0-3); Arterial Blood Gas Oxygen Sat 96.4 mmHG (95.0-100.0); Arterial COHb 0.3 % (0.0-3.0); Arterial Fraction of Oxyhgb 95.8 % (93.0-99.0); Arterial HCO3 19.3 mmol/L (22.0-26.0); Arterial MetHb 0.3 % (0.0-1.5); Arterial pCO2 45.4 mmhg (35-45); Blood Gas IEPAP 15/5; Blood Gas PS 10; MODE MASK - BIPAP; Site Right Radial
[2018-06-05] MEDS: FLUTICASONE/VILANTEROL 100-25 INH (09:00)
[2018-06-05] MEDS: ZYVOX 600 MG TAB PO ×2 (09:00→20:12)
[2018-06-05] MEDS: ASPIRIN 81 MG TAB PO (09:00)
[2018-06-05] MEDS: PSYLLIUM 28% PACKET PO (09:00)
[2018-06-05] MEDS: APIXABAN 5 MG TABLET PO ×2 (09:00→20:02)
[2018-06-05] MEDS: TIOTROPIUM 18 MCG CAPSULE INHA DEV INH (09:00)
[2018-06-05] MEDS: FLUCONAZOLE 100 MG TAB PO (09:00)
[2018-06-05] MEDS: METOLAZONE 5 MG TAB PO (09:30)
[2018-06-05] MEDS ORDERED: HEPARIN 1000 UNITS/ML 10 ML INJ (10:18)
[2018-06-05 10:24] LABS: INR 2.26
[2018-06-05 10:25] LABS: PARTIAL THROMBOPLASTIN TIME 38.4 Sec (23.0-35.0)
[2018-06-05] MEDS ORDERED: NA BICARBONATE 8.4% 50 ML SYG (10:59)
[2018-06-05] MEDS: NA BICARBONATE 8.4% 50 ML SYG IV (11:07)
[2018-06-05] MEDS: CLOTRIMAZOLE 1% 30 GM CR TOP ×2 (11:40→21:00)
[2018-06-05] MEDS: LORAZEPAM 2 MG INJ IV ×2 (12:20→23:39)
[2018-06-05] MEDS ORDERED: METOPROLOL 5 MG INJ IV (13:00)
[2018-06-05] MEDS: DIGOXIN 0.125 MG TAB PO (13:00)
[2018-06-05 19:46] LABS: AADO2 Arterial 60.2 mmHg (7.0-24.0); Allen Test ACCEPTAB; Arterial Base Excess -10.5 mmol/L (-3.0-3); Arterial Blood Gas Oxygen Sat 95.3 mmHG (95.0-100.0); Arterial COHb 0.4 % (0.0-3.0); Arterial Fraction of Oxyhgb 94.5 % (93.0-99.0); Arterial HCO3 20.6 mmol/L (22.0-26.0); Arterial MetHb 0.4 % (0.0-1.5); Arterial pCO2 75.8 mmhg (35-45); Blood Gas PS 10; MODE BIPAP - S/T MASK; Site Right Radial
[2018-06-05] MEDS: INSULIN GLARGINE [LANTus] (100 UNITS/ML) SYG SC (20:00)
[2018-06-05] MEDS: METOPROLOL 25 MG TAB PO (20:02)
[2018-06-05 20:06] LABS: HEPATITIS B SURFACE ANTIGEN NEGATIVE (NEGATIVE)
[2018-06-05 21:10] LABS: HEPATITIS B SURFACE ANTIBODY POSITIVE (NEGATIVE)
[2018-06-05 21:38] LABS: AADO2 Arterial 100.9 mmHg (7.0-24.0); Allen Test ACCEPTAB; Arterial Base Excess -4.5 mmol/L (-3.0-3); Arterial Blood Gas Oxygen Sat 96.2 mmHG (95.0-100.0); Arterial COHb 0.5 % (0.0-3.0); Arterial Fraction of Oxyhgb 95.3 % (93.0-99.0); Arterial HCO3 22.9 mmol/L (22.0-26.0); Arterial MetHb 0.4 % (0.0-1.5); Arterial pCO2 52.8 mmhg (35-45); Blood Gas IEPAP 20/5; MODE MASK - BIPAP; Site Right Radial
[2018-06-05] MEDS: DEXTROSE 5%-0.45% NACL 1,000 ML IV (22:54)
[2018-06-05] MEDS: CEFEPIME 1GM/50 ML (PMX) 50 ML IVPB (22:54)
[2018-06-06] MEDS: ALBUTEROL/IPRATROPIUM (NEB) 3 ML AMP HHN ×6 (01:12→21:06)
[2018-06-06] MEDS: ACCU-CHEK XX (02:00)
[2018-06-06] MEDS: LIDOCAINE 1% (MPF) 5 ML VIAL SC (05:00)
[2018-06-06] MEDS: PANTOPRAZOLE (EC) 40 MG TAB PO (05:29)
[2018-06-06] MEDS: METHYLPREDNISOLONE 125 MG INJ IV (05:37)
[2018-06-06] MEDS: INSULIN ASPART [NOVOLOG] 3 ML PEN SC ×5 (07:35→20:24)
[2018-06-06] MEDS: TIOTROPIUM 18 MCG CAPSULE INHA DEV INH (08:24)
[2018-06-06] MEDS: FLUTICASONE/VILANTEROL 100-25 INH (08:24)
[2018-06-06 08:27] LABS: AADO2 Arterial 0 mmHg (7.0-24.0); Allen Test ACCEPTAB; Arterial Base Excess -6.2 mmol/L (-3.0-3); Arterial Blood Gas Oxygen Sat 95.5 mmHG (95.0-100.0); Arterial COHb 0.4 % (0.0-3.0); Arterial Fraction of Oxyhgb 94.9 % (93.0-99.0); Arterial HCO3 21.3 mmol/L (22.0-26.0); Arterial MetHb 0.2 % (0.0-1.5); Arterial pCO2 51.1 mmhg (35-45); Blood Gas IEPAP 20/5; Blood Gas PS 15; MODE MASK - BIPAP; Site Right Radial
[2018-06-06 08:28] LABS: ADD MAN DIFF? NO
[2018-06-06 08:34] LABS: WHITE BLOOD COUNT 5.5 10^3/ul (4.8-10.8)
[2018-06-06 08:34] LABS: ABNORMAL IP MESSAGE 1; HEMATOCRIT 31.6 % (37.0-47.0); HEMOGLOBIN 9.4 g/dl (12.0-16.0); LYMPHOCYTES # 0.1 10^3/ul (0.8-2.9); LYMPHOCYTES % 2.6 % (15.0-51.0); MEAN CORPUSCULAR HGB CONC 29.7 g/dl (32.0-37.0); MEAN PLATELET VOLUME 10.1 fl (7.4-10.4); MONOCYTE # 0.2 10^3/ul (0.3-0.9); MONOCYTES % 3.1 % (0.0-11.0); NEUTROPHIL # 5.1 10^3/ul (1.6-7.5); NEUTROPHILS % 93.9 % (39.0-77.0); NUCLEATED RED BLOOD CELLS # 0.1 10^3/ul (0.0-0.0); NUCLEATED RED BLOOD CELLS% 1.1 /100WBC (0.0-0.0); PLATELET COUNT 182 10^3/UL (140-415); RED BLOOD COUNT 4.27 10^6/ul (4.20-5.40)
[2018-06-06 08:36] LABS: POSITIVE DIFF @See below
[2018-06-06 08:58] LABS: ANION GAP 13 (5-13); BLOOD UREA NITROGEN 79 mg/dl (7-20); CALCIUM 8.5 mg/dl (8.4-10.2); CARBON DIOXIDE 22 mmol/L (21-31); CHLORIDE 104 mmol/L (97-110); CREATININE 4.11 mg/dl (0.44-1.00); GLUCOSE 131 mg/dl (70-220); POTASSIUM 5.5 mmol/L (3.5-5.1); SODIUM 139 mmol/L (135-144)
[2018-06-06] MEDS: APIXABAN 5 MG TABLET PO (09:00)
[2018-06-06 09:58] LABS: INR 2.54; PROTIME 27.4 Sec (11.9-14.9); PT RATIO 2.1
[2018-06-06 09:59] LABS: PARTIAL THROMBOPLASTIN TIME 38.3 Sec (23.0-35.0)
[2018-06-06] MEDS: HEPARIN 25000 UNITS/250 ML 250 ML IV (10:13)
[2018-06-06] MEDS: CLOTRIMAZOLE 1% 30 GM CR TOP ×2 (10:16→20:17)
[2018-06-06] MEDS: DIGOXIN 0.125 MG TAB PO (13:00)
[2018-06-06] MEDS ORDERED: ALBUMIN HUMAN 25% 0 ML (13:37)
[2018-06-06] MEDS ORDERED: ALBUMIN HUMAN 25% 100 ML IV (14:00)
[2018-06-06] MEDS ORDERED: HEPARIN 5,000 UNIT/1 ML VIAL SC (14:00)
[2018-06-06] MEDS: LORAZEPAM 2 MG INJ IV ×2 (15:35→20:46)
[2018-06-06 17:11] LABS: PARTIAL THROMBOPLASTIN TIME 133.8 Sec (23.0-35.0)
[2018-06-06] MEDS: FLUCONAZOLE 100 MG/50 ML (PMX) 50 ML IVPB (17:26)
[2018-06-06] MEDS: HEPARIN 1000 UNITS/ML 10 ML INJ CATHETER (17:49)
[2018-06-06] MEDS: LINEZOLID 600 MG/D5W (PMX) 300 ML IVPB (20:17)
[2018-06-06] MEDS: CEFEPIME 1GM/50 ML (PMX) 50 ML IVPB (20:17)
[2018-06-06] MEDS: INSULIN GLARGINE [LANTus] (100 UNITS/ML) SYG SC (20:18)
[2018-06-06] MEDS ORDERED: GLUCAGON 1 MG INJ IM (20:30)
[2018-06-06] MEDS ORDERED: GLUCOSE GEL 15 GRAM TUBE BUCCAL (20:30)
[2018-06-06] MEDS ORDERED: GLUCOSE GEL 15 GRAM TUBE PO (20:30)
[2018-06-07] MEDS: ALBUTEROL/IPRATROPIUM (NEB) 3 ML AMP HHN ×6 (01:15→20:21)
[2018-06-07] MEDS: HALOPERIDOL 5 MG INJ IM (01:30)
[2018-06-07] MEDS: LORAZEPAM 2 MG INJ IV (01:37)
[2018-06-07] MEDS: INSULIN ASPART [NOVOLOG] 3 ML PEN SC ×6 (01:58→20:40)
[2018-06-07] MEDS: ACCU-CHEK XX (01:58)
[2018-06-07 02:08] LABS: PARTIAL THROMBOPLASTIN TIME 89.2 Sec (23.0-35.0)
[2018-06-07 05:06] LABS: ADD MAN DIFF? NO
[2018-06-07 05:13] LABS: ABNORMAL IP MESSAGE 1; HEMATOCRIT 26.3 % (37.0-47.0); HEMOGLOBIN 8.5 g/dl (12.0-16.0); LYMPHOCYTES # 0.2 10^3/ul (0.8-2.9); LYMPHOCYTES % 3.6 % (15.0-51.0); MEAN CORPUSCULAR HEMOGLOBIN 22.7 pg (29.0-33.0); MEAN CORPUSCULAR HGB CONC 32.3 g/dl (32.0-37.0); MEAN CORPUSCULAR VOLUME 70.1 fl (82.0-101.0); MEAN PLATELET VOLUME 10.7 fl (7.4-10.4); MONOCYTE # 0.3 10^3/ul (0.3-0.9); MONOCYTES % 6.9 % (0.0-11.0); NEUTROPHIL # 4.2 10^3/ul (1.6-7.5); NEUTROPHILS % 88.9 % (39.0-77.0); NUCLEATED RED BLOOD CELLS% 0.4 /100WBC (0.0-0.0); PLATELET COUNT 172 10^3/UL (140-415); RED BLOOD COUNT 3.75 10^6/ul (4.20-5.40); RED CELL DISTRIBUTION WIDTH 19.7 % (11.5-14.5)
[2018-06-07 05:13] LABS: WHITE BLOOD COUNT 4.8 10^3/ul (4.8-10.8)
[2018-06-07 05:32] LABS: ANION GAP 11 (5-13); BLOOD UREA NITROGEN 79 mg/dl (7-20); CARBON DIOXIDE 23 mmol/L (21-31); CHLORIDE 105 mmol/L (97-110); CREATININE 3.97 mg/dl (0.44-1.00); GLUCOSE 158 mg/dl (70-220); MAGNESIUM 2.2 mg/dl (1.7-2.5); PHOSPHORUS 7.1 mg/dl (2.5-4.9); POTASSIUM 5.2 mmol/L (3.5-5.1); SODIUM 139 mmol/L (135-144)
[2018-06-07 05:36] LABS: POSITIVE DIFF @See below
[2018-06-07] MEDS: FLUTICASONE/VILANTEROL 100-25 INH (08:17)
[2018-06-07] MEDS: CLOTRIMAZOLE 1% 30 GM CR TOP ×2 (08:25→21:00)
[2018-06-07] MEDS: LINEZOLID 600 MG/D5W (PMX) 300 ML IVPB ×2 (08:25→20:40)
[2018-06-07 08:42] LABS: PARTIAL THROMBOPLASTIN TIME 70.3 Sec (23.0-35.0)
[2018-06-07 10:00] LABS: AADO2 Arterial 31.2 mmHg (7.0-24.0); Allen Test ACCEPTAB; Arterial Base Excess -3.5 mmol/L (-3.0-3); Arterial Blood Gas Oxygen Sat 93.1 mmHG (95.0-100.0); Arterial COHb 0.3 % (0.0-3.0); Arterial Fraction of Oxyhgb 92.5 % (93.0-99.0); Arterial HCO3 21.4 mmol/L (22.0-26.0); Arterial MetHb 0.3 % (0.0-1.5); Arterial pCO2 37.7 mmhg (35-45); Blood Gas PS 15; MODE MASK - BIPAP; Site Right Radial
[2018-06-07] MEDS: DIGOXIN 500 MCG INJ IV (10:46)
[2018-06-07 14:45] LABS: PARTIAL THROMBOPLASTIN TIME 57.9 Sec (23.0-35.0)
[2018-06-07] MEDS: FLUCONAZOLE 100 MG/50 ML (PMX) 50 ML IVPB (17:53)
[2018-06-07] MEDS: HEPARIN 25000 UNITS/250 ML 250 ML IV (18:49)
[2018-06-07] MEDS: INSULIN GLARGINE [LANTus] (100 UNITS/ML) SYG SC (20:00)
[2018-06-07] MEDS: CEFEPIME 1GM/50 ML (PMX) 50 ML IVPB (20:40)
[2018-06-07 20:44] LABS: PARTIAL THROMBOPLASTIN TIME 52.2 Sec (23.0-35.0)
[2018-06-07] MEDS: DEXTROSE 50% 50 ML SYRINGE IV (20:44)
[2018-06-07] MEDS: morphine 2 MG INJ IV (21:19)
[2018-06-08] MEDS: INSULIN ASPART [NOVOLOG] 3 ML PEN SC ×6 (01:00→20:09)
[2018-06-08] MEDS: DEXTROSE 50% 50 ML SYRINGE IV (01:40)
[2018-06-08] MEDS: ALBUTEROL/IPRATROPIUM (NEB) 3 ML AMP HHN ×6 (01:50→21:17)
[2018-06-08] MEDS: ACCU-CHEK XX (02:42)
[2018-06-08] MEDS: morphine 2 MG INJ IV (02:43)
[2018-06-08 03:56] LABS: ADD MAN DIFF? NO
[2018-06-08 04:00] LABS: ABNORMAL IP MESSAGE 1; BASOPHILS % 0.1 % (0.0-2.0); EOSINOPHILS % 0.1 % (0.0-7.0); HEMATOCRIT 30.4 % (37.0-47.0); HEMOGLOBIN 9.3 g/dl (12.0-16.0); LYMPHOCYTES # 0.4 10^3/ul (0.8-2.9); LYMPHOCYTES % 6.1 % (15.0-51.0); MEAN CORPUSCULAR HEMOGLOBIN 22.7 pg (29.0-33.0); MEAN CORPUSCULAR HGB CONC 30.6 g/dl (32.0-37.0); MEAN CORPUSCULAR VOLUME 74.3 fl (82.0-101.0); MEAN PLATELET VOLUME 10.3 fl (7.4-10.4); MONOCYTE # 0.5 10^3/ul (0.3-0.9); MONOCYTES % 7.1 % (0.0-11.0); NEUTROPHIL # 5.8 10^3/ul (1.6-7.5); NUCLEATED RED BLOOD CELLS% 0.3 /100WBC (0.0-0.0); PLATELET COUNT 137 10^3/UL (140-415); RED BLOOD COUNT 4.09 10^6/ul (4.20-5.40); RED CELL DISTRIBUTION WIDTH 19.8 % (11.5-14.5)
[2018-06-08 04:00] LABS: WHITE BLOOD COUNT 6.7 10^3/ul (4.8-10.8)
[2018-06-08 04:09] LABS: POSITIVE DIFF @See below
[2018-06-08 04:27] LABS: ANION GAP 11 (5-13); BLOOD UREA NITROGEN 56 mg/dl (7-20); CALCIUM 8.1 mg/dl (8.4-10.2); CARBON DIOXIDE 23 mmol/L (21-31); CHLORIDE 104 mmol/L (97-110); CREATININE 3.07 mg/dl (0.44-1.00); GLUCOSE 84 mg/dl (70-220); MAGNESIUM 2.2 mg/dl (1.7-2.5); PHOSPHORUS 5.7 mg/dl (2.5-4.9); POTASSIUM 4.6 mmol/L (3.5-5.1); SODIUM 138 mmol/L (135-144)
[2018-06-08 04:47] LABS: PARTIAL THROMBOPLASTIN TIME 70.8 Sec (23.0-35.0)
[2018-06-08] MEDS: LINEZOLID 600 MG/D5W (PMX) 300 ML IVPB (08:21)
[2018-06-08] MEDS: CLOTRIMAZOLE 1% 30 GM CR TOP ×2 (08:22→22:31)
[2018-06-08] MEDS: FLUTICASONE/VILANTEROL 100-25 INH (08:25)
[2018-06-08 11:18] LABS: PARTIAL THROMBOPLASTIN TIME 64.4 Sec (23.0-35.0)
[2018-06-08] MEDS: LEVOFLOXACIN 250MG/D5W (PMX) 50 ML IVPB (12:48)
[2018-06-08 18:03] LABS: PARTIAL THROMBOPLASTIN TIME 71.3 Sec (23.0-35.0)
[2018-06-09] MEDS: INSULIN ASPART [NOVOLOG] 3 ML PEN SC ×6 (01:00→20:39)
[2018-06-09 01:04] LABS: PARTIAL THROMBOPLASTIN TIME 56.5 Sec (23.0-35.0)
[2018-06-09] MEDS: ALBUTEROL/IPRATROPIUM (NEB) 3 ML AMP HHN ×6 (01:35→20:52)
[2018-06-09] MEDS: METHYLPREDNISOLONE 40 MG INJ IV ×3 (02:04→18:46)
[2018-06-09] MEDS: HEPARIN 25000 UNITS/250 ML 250 ML IV (05:39)
[2018-06-09 06:44] LABS: ADD MAN DIFF? NO
[2018-06-09 06:46] LABS: WHITE BLOOD COUNT 4.3 10^3/ul (4.8-10.8)
[2018-06-09 06:46] LABS: ABNORMAL IP MESSAGE 1; HEMATOCRIT 27.1 % (37.0-47.0); HEMOGLOBIN 8.4 g/dl (12.0-16.0); LYMPHOCYTES # 0.2 10^3/ul (0.8-2.9); LYMPHOCYTES % 4.2 % (15.0-51.0); MEAN CORPUSCULAR HEMOGLOBIN 22.5 pg (29.0-33.0); MEAN CORPUSCULAR VOLUME 72.5 fl (82.0-101.0); MEAN PLATELET VOLUME 11.2 fl (7.4-10.4); MONOCYTE # 0.1 10^3/ul (0.3-0.9); MONOCYTES % 2.8 % (0.0-11.0); NEUTROPHILS % 92.5 % (39.0-77.0); PLATELET COUNT 127 10^3/UL (140-415); RED BLOOD COUNT 3.74 10^6/ul (4.20-5.40); RED CELL DISTRIBUTION WIDTH 19.6 % (11.5-14.5)
[2018-06-09 06:48] LABS: POSITIVE DIFF @See below
[2018-06-09 07:22] LABS: ANION GAP 13 (5-13); BLOOD UREA NITROGEN 60 mg/dl (7-20); CALCIUM 8.5 mg/dl (8.4-10.2); CARBON DIOXIDE 24 mmol/L (21-31); CHLORIDE 102 mmol/L (97-110); CREATININE 3.79 mg/dl (0.44-1.00); GLUCOSE 129 mg/dl (70-220); POTASSIUM 5.3 mmol/L (3.5-5.1); SODIUM 139 mmol/L (135-144)
[2018-06-09] MEDS: FLUTICASONE/VILANTEROL 100-25 INH (09:00)
[2018-06-09 09:08] LABS: PARTIAL THROMBOPLASTIN TIME 82.4 Sec (23.0-35.0)
[2018-06-09] MEDS: CLOTRIMAZOLE 1% 30 GM CR TOP ×2 (09:31→20:37)
[2018-06-09 16:51] LABS: PARTIAL THROMBOPLASTIN TIME 100.4 Sec (23.0-35.0)
[2018-06-09] MEDS: INSULIN GLARGINE [LANTus] (100 UNITS/ML) SYG SC (21:44)
[2018-06-09 23:42] LABS: PARTIAL THROMBOPLASTIN TIME 60.9 Sec (23.0-35.0)
[2018-06-10] MEDS: ALBUTEROL/IPRATROPIUM (NEB) 3 ML AMP HHN ×6 (01:17→20:04)
[2018-06-10] MEDS: INSULIN ASPART [NOVOLOG] 3 ML PEN SC ×5 (01:52→21:00)
[2018-06-10] MEDS: METHYLPREDNISOLONE 40 MG INJ IV ×2 (01:53→09:43)
[2018-06-10 04:44] LABS: ADD MAN DIFF? NO
[2018-06-10 04:48] LABS: ABNORMAL IP MESSAGE 1; HEMATOCRIT 23.9 % (37.0-47.0); HEMOGLOBIN 7.6 g/dl (12.0-16.0); LYMPHOCYTES # 0.2 10^3/ul (0.8-2.9); LYMPHOCYTES % 8.3 % (15.0-51.0); MEAN CORPUSCULAR HEMOGLOBIN 22.6 pg (29.0-33.0); MEAN CORPUSCULAR HGB CONC 31.8 g/dl (32.0-37.0); MEAN CORPUSCULAR VOLUME 70.9 fl (82.0-101.0); MONOCYTE # 0.1 10^3/ul (0.3-0.9); MONOCYTES % 3.3 % (0.0-11.0); NEUTROPHIL # 2.1 10^3/ul (1.6-7.5); PLATELET COUNT 112 10^3/UL (140-415); RED BLOOD COUNT 3.37 10^6/ul (4.20-5.40); RED CELL DISTRIBUTION WIDTH 19.4 % (11.5-14.5)
[2018-06-10 04:48] LABS: WHITE BLOOD COUNT 2.4 10^3/ul (4.8-10.8)
[2018-06-10 04:51] LABS: POSITIVE DIFF @See below
[2018-06-10 05:08] LABS: ANION GAP 11 (5-13); BLOOD UREA NITROGEN 53 mg/dl (7-20); CALCIUM 8.9 mg/dl (8.4-10.2); CARBON DIOXIDE 27 mmol/L (21-31); CHLORIDE 103 mmol/L (97-110); CREATININE 2.86 mg/dl (0.44-1.00); GLUCOSE 239 mg/dl (70-220); MAGNESIUM 2.2 mg/dl (1.7-2.5); PHOSPHORUS 5.5 mg/dl (2.5-4.9); POTASSIUM 4.8 mmol/L (3.5-5.1); SODIUM 141 mmol/L (135-144)
[2018-06-10 08:30] LABS: PARTIAL THROMBOPLASTIN TIME 54.8 Sec (23.0-35.0)
[2018-06-10] MEDS: CLOTRIMAZOLE 1% 30 GM CR TOP ×2 (09:44→20:18)
[2018-06-10] MEDS: FLUTICASONE/VILANTEROL 100-25 INH (09:44)
[2018-06-10] MEDS: LEVOFLOXACIN 250MG/D5W (PMX) 50 ML IVPB (12:50)
[2018-06-10] MEDS: HEPARIN 25000 UNITS/250 ML 250 ML IV (12:52)
[2018-06-10] MEDS: METOPROLOL 50 MG TAB PO (20:14)
[2018-06-10] MEDS: INSULIN GLARGINE [LANTus] (100 UNITS/ML) SYG SC (20:17)
[2018-06-11] MEDS: ALBUTEROL/IPRATROPIUM (NEB) 3 ML AMP HHN ×6 (00:30→20:34)
[2018-06-11] MEDS ORDERED: ACCU-CHEK XX (03:00)
[2018-06-11 05:29] LABS: ABNORMAL IP MESSAGE 1; ADD MAN DIFF? NO; HEMATOCRIT 22.4 % (37.0-47.0); HEMOGLOBIN 7.1 g/dl (12.0-16.0); LYMPHOCYTES # 0.5 10^3/ul (0.8-2.9); LYMPHOCYTES % 11.3 % (15.0-51.0); MEAN CORPUSCULAR HEMOGLOBIN 22.9 pg (29.0-33.0); MEAN CORPUSCULAR HGB CONC 31.7 g/dl (32.0-37.0); MEAN CORPUSCULAR VOLUME 72.3 fl (82.0-101.0); MONOCYTE # 0.3 10^3/ul (0.3-0.9); MONOCYTES % 7.2 % (0.0-11.0); NEUTROPHIL # 3.8 10^3/ul (1.6-7.5); NEUTROPHILS % 81.3 % (39.0-77.0); PLATELET COUNT 91 10^3/UL (140-415); RED CELL DISTRIBUTION WIDTH 19.4 % (11.5-14.5)
[2018-06-11 05:29] LABS: WHITE BLOOD COUNT 4.7 10^3/ul (4.8-10.8)
[2018-06-11 05:40] LABS: POSITIVE DIFF @See below
[2018-06-11 05:50] LABS: ANION GAP 11 (5-13); BLOOD UREA NITROGEN 62 mg/dl (7-20); CALCIUM 9.2 mg/dl (8.4-10.2); CARBON DIOXIDE 28 mmol/L (21-31); CHLORIDE 103 mmol/L (97-110); CREATININE 3.12 mg/dl (0.44-1.00); MAGNESIUM 2.2 mg/dl (1.7-2.5); PHOSPHORUS 5.2 mg/dl (2.5-4.9); POTASSIUM 4.6 mmol/L (3.5-5.1); SODIUM 142 mmol/L (135-144)
[2018-06-11 05:57] LABS: GLUCOSE 35 mg/dl (70-220)
[2018-06-11] MEDS: DEXTROSE 50% 50 ML SYRINGE IV (06:01)
[2018-06-11] MEDS: INSULIN ASPART [NOVOLOG] 3 ML PEN SC ×5 (08:00→20:11)
[2018-06-11] MEDS: CLOTRIMAZOLE 1% 30 GM CR TOP ×2 (10:27→20:10)
[2018-06-11] MEDS: METOPROLOL 50 MG TAB PO ×2 (10:28→20:10)
[2018-06-11] MEDS: ASPIRIN 81 MG TAB PO (10:28)
[2018-06-11] MEDS: FLUTICASONE/VILANTEROL 100-25 INH (10:28)
[2018-06-11] MEDS: HYDROCODONE/APAP (5/325) TAB PO (15:00)
[2018-06-11] MEDS: FUROSEMIDE 40 MG INJ IV (18:07)
[2018-06-12] MEDS: ALBUTEROL/IPRATROPIUM (NEB) 3 ML AMP HHN ×6 (00:17→20:46)
[2018-06-12] MEDS: HYDROCODONE/APAP (5/325) TAB PO (00:44)
[2018-06-12 05:32] LABS: ADD MAN DIFF? NO
[2018-06-12 05:45] LABS: ABNORMAL IP MESSAGE 1; EOSINOPHILS # 0.1 10^3/ul (0.0-0.5); EOSINOPHILS % 1.4 % (0.0-7.0); HEMATOCRIT 21.8 % (37.0-47.0); LYMPHOCYTES # 0.5 10^3/ul (0.8-2.9); LYMPHOCYTES % 10.2 % (15.0-51.0); MEAN CORPUSCULAR HEMOGLOBIN 22.3 pg (29.0-33.0); MEAN CORPUSCULAR HGB CONC 30.3 g/dl (32.0-37.0); MEAN CORPUSCULAR VOLUME 73.6 fl (82.0-101.0); MONOCYTE # 0.4 10^3/ul (0.3-0.9); MONOCYTES % 7.7 % (0.0-11.0); NEUTROPHIL # 4.1 10^3/ul (1.6-7.5); NEUTROPHILS % 80.5 % (39.0-77.0); PLATELET COUNT 56 10^3/UL (140-415); RED BLOOD COUNT 2.96 10^6/ul (4.20-5.40); RED CELL DISTRIBUTION WIDTH 19.8 % (11.5-14.5)
[2018-06-12 05:45] LABS: WHITE BLOOD COUNT 5.1 10^3/ul (4.8-10.8)
[2018-06-12] MEDS ORDERED: LEVOFLOXACIN 250 MG TAB PO (06:00)
[2018-06-12 06:03] LABS: HEMOGLOBIN 6.6 g/dl (12.0-16.0)
[2018-06-12 06:04] LABS: POSITIVE DIFF @See below
[2018-06-12 07:25] LABS: ANION GAP 11 (5-13); BLOOD UREA NITROGEN 70 mg/dl (7-20); CALCIUM 8.8 mg/dl (8.4-10.2); CARBON DIOXIDE 27 mmol/L (21-31); CHLORIDE 104 mmol/L (97-110); CREATININE 2.99 mg/dl (0.44-1.00); GLUCOSE 115 mg/dl (70-220); MAGNESIUM 2.3 mg/dl (1.7-2.5); PHOSPHORUS 5.2 mg/dl (2.5-4.9); SODIUM 142 mmol/L (135-144)
[2018-06-12] MEDS: INSULIN ASPART [NOVOLOG] 3 ML PEN SC ×4 (08:00→21:00)
[2018-06-12] MEDS: FLUTICASONE/VILANTEROL 100-25 INH (09:16)
[2018-06-12] MEDS: METOPROLOL 50 MG TAB PO ×2 (09:17→23:15)
[2018-06-12] MEDS: ASPIRIN 81 MG TAB PO (09:17)
[2018-06-12] MEDS: CLOTRIMAZOLE 1% 30 GM CR TOP ×2 (09:17→21:00)
[2018-06-12 10:53] LABS: ADD MAN DIFF? NO
[2018-06-12 11:02] LABS: ABNORMAL IP MESSAGE 1; EOSINOPHILS # 0.1 10^3/ul (0.0-0.5); EOSINOPHILS % 1.4 % (0.0-7.0); HEMATOCRIT 21.8 % (37.0-47.0); LYMPHOCYTES # 0.6 10^3/ul (0.8-2.9); MEAN CORPUSCULAR HEMOGLOBIN 22.4 pg (29.0-33.0); MEAN CORPUSCULAR HGB CONC 30.3 g/dl (32.0-37.0); MEAN CORPUSCULAR VOLUME 73.9 fl (82.0-101.0); MONOCYTE # 0.4 10^3/ul (0.3-0.9); MONOCYTES % 7.9 % (0.0-11.0); NEUTROPHILS % 79.1 % (39.0-77.0); PLATELET COUNT 60 10^3/UL (140-415); RED BLOOD COUNT 2.95 10^6/ul (4.20-5.40); RED CELL DISTRIBUTION WIDTH 19.9 % (11.5-14.5)
[2018-06-12 11:02] LABS: WHITE BLOOD COUNT 5.1 10^3/ul (4.8-10.8)
[2018-06-12 11:07] LABS: HEMOGLOBIN 6.6 g/dl (12.0-16.0); POSITIVE DIFF @See below
[2018-06-12 12:11] LABS: IMMEDIATE SPIN CROSSMATCH 1 1
[2018-06-12] MEDS: FUROSEMIDE 40 MG INJ IV (17:33)
[2018-06-13] MEDS: ALBUTEROL/IPRATROPIUM (NEB) 3 ML AMP HHN ×6 (01:05→21:00)
[2018-06-13] MEDS: INSULIN ASPART [NOVOLOG] 3 ML PEN SC ×4 (07:56→21:00)
[2018-06-13] MEDS: FUROSEMIDE 40 MG INJ IV ×2 (07:58→17:25)
[2018-06-13] MEDS: FLUTICASONE/VILANTEROL 100-25 INH (08:11)
[2018-06-13] MEDS: CLOTRIMAZOLE 1% 30 GM CR TOP ×2 (08:11→21:00)
[2018-06-13] MEDS: METOPROLOL 50 MG TAB PO ×2 (08:12→22:12)
[2018-06-13] MEDS: ASPIRIN 81 MG TAB PO (08:12)
[2018-06-14] MEDS: ALBUTEROL/IPRATROPIUM (NEB) 3 ML AMP HHN ×6 (01:01→21:24)
[2018-06-14] MEDS: FUROSEMIDE 40 MG INJ IV ×2 (05:31→17:41)
[2018-06-14] MEDS: ASPIRIN 81 MG TAB PO (08:18)
[2018-06-14] MEDS: FLUTICASONE/VILANTEROL 100-25 INH (08:18)
[2018-06-14] MEDS: CLOTRIMAZOLE 1% 30 GM CR TOP ×2 (08:18→21:15)
[2018-06-14] MEDS: INSULIN ASPART [NOVOLOG] 3 ML PEN SC ×4 (08:41→21:00)
[2018-06-14] MEDS: METOPROLOL 50 MG TAB PO ×2 (09:00→21:14)
[2018-06-14 09:52] LABS: ANION GAP 8 (5-13); BLOOD UREA NITROGEN 55 mg/dl (7-20); CALCIUM 8.5 mg/dl (8.4-10.2); CARBON DIOXIDE 29 mmol/L (21-31); CHLORIDE 103 mmol/L (97-110); CREATININE 2.06 mg/dl (0.44-1.00); GLUCOSE 148 mg/dl (70-220); POTASSIUM 4.5 mmol/L (3.5-5.1); SODIUM 140 mmol/L (135-144)
[2018-06-15] MEDS: ALBUTEROL/IPRATROPIUM (NEB) 3 ML AMP HHN ×6 (00:37→20:44)
[2018-06-15] MEDS: FUROSEMIDE 40 MG INJ IV ×2 (05:50→17:36)
[2018-06-15 06:22] LABS: ADD MAN DIFF? NO
[2018-06-15 06:25] LABS: WHITE BLOOD COUNT 5.3 10^3/ul (4.8-10.8)
[2018-06-15 06:25] LABS: ABNORMAL IP MESSAGE 1; EOSINOPHILS # 0.1 10^3/ul (0.0-0.5); EOSINOPHILS % 1.7 % (0.0-7.0); HEMATOCRIT 24.2 % (37.0-47.0); HEMOGLOBIN 7.3 g/dl (12.0-16.0); LYMPHOCYTES # 0.7 10^3/ul (0.8-2.9); LYMPHOCYTES % 13.9 % (15.0-51.0); MEAN CORPUSCULAR HGB CONC 30.2 g/dl (32.0-37.0); MEAN CORPUSCULAR VOLUME 76.1 fl (82.0-101.0); MONOCYTE # 0.6 10^3/ul (0.3-0.9); MONOCYTES % 10.7 % (0.0-11.0); NEUTROPHIL # 3.9 10^3/ul (1.6-7.5); NEUTROPHILS % 73.3 % (39.0-77.0); RED BLOOD COUNT 3.18 10^6/ul (4.20-5.40)
[2018-06-15 06:52] LABS: ANION GAP 9 (5-13); BLOOD UREA NITROGEN 62 mg/dl (7-20); CALCIUM 8.5 mg/dl (8.4-10.2); CARBON DIOXIDE 30 mmol/L (21-31); CHLORIDE 103 mmol/L (97-110); GLUCOSE 216 mg/dl (70-220); MAGNESIUM 1.9 mg/dl (1.7-2.5); PHOSPHORUS 3.7 mg/dl (2.5-4.9); POTASSIUM 4.6 mmol/L (3.5-5.1); SODIUM 142 mmol/L (135-144)
[2018-06-15 07:00] LABS: PLATELET COUNT 28 10^3/UL (140-415); POSITIVE DIFF @See below
[2018-06-15] MEDS: INSULIN ASPART [NOVOLOG] 3 ML PEN SC ×4 (08:07→21:00)
[2018-06-15] MEDS: FLUTICASONE/VILANTEROL 100-25 INH (08:46)
[2018-06-15] MEDS: CLOTRIMAZOLE 1% 30 GM CR TOP ×2 (08:47→21:50)
[2018-06-15] MEDS: ASPIRIN 81 MG TAB PO (08:47)
[2018-06-15] MEDS: METOPROLOL 50 MG TAB PO ×2 (08:47→21:49)
[2018-06-16] MEDS: ALBUTEROL/IPRATROPIUM (NEB) 3 ML AMP HHN ×6 (01:30→20:47)
[2018-06-16] MEDS: FUROSEMIDE 40 MG INJ IV ×2 (05:39→18:02)
[2018-06-16] MEDS: INSULIN ASPART [NOVOLOG] 3 ML PEN SC ×4 (07:52→22:17)
[2018-06-16] MEDS: CLOTRIMAZOLE 1% 30 GM CR TOP ×2 (08:16→21:00)
[2018-06-16] MEDS: METOPROLOL 50 MG TAB PO ×2 (08:17→21:56)
[2018-06-16] MEDS: FLUTICASONE/VILANTEROL 100-25 INH (08:17)
[2018-06-16 12:12] LABS: ANION GAP 6 (5-13); BLOOD UREA NITROGEN 64 mg/dl (7-20); CALCIUM 8.5 mg/dl (8.4-10.2); CARBON DIOXIDE 32 mmol/L (21-31); CHLORIDE 103 mmol/L (97-110); CREATININE 2.13 mg/dl (0.44-1.00); GLUCOSE 209 mg/dl (70-220); POTASSIUM 4.4 mmol/L (3.5-5.1); SODIUM 141 mmol/L (135-144)
[2018-06-17] MEDS: ALBUTEROL/IPRATROPIUM (NEB) 3 ML AMP HHN ×6 (01:03→19:50)
[2018-06-17 05:55] LABS: ADD MAN DIFF? NO
[2018-06-17 06:18] LABS: WHITE BLOOD COUNT 4.7 10^3/ul (4.8-10.8)
[2018-06-17 06:18] LABS: ABNORMAL IP MESSAGE 1; BASOPHILS % 0.2 % (0.0-2.0); EOSINOPHILS # 0.1 10^3/ul (0.0-0.5); EOSINOPHILS % 1.3 % (0.0-7.0); HEMATOCRIT 21.4 % (37.0-47.0); LYMPHOCYTES # 0.7 10^3/ul (0.8-2.9); LYMPHOCYTES % 14.6 % (15.0-51.0); MEAN CORPUSCULAR HEMOGLOBIN 23.5 pg (29.0-33.0); MEAN CORPUSCULAR HGB CONC 30.8 g/dl (32.0-37.0); MEAN CORPUSCULAR VOLUME 76.2 fl (82.0-101.0); MONOCYTE # 0.5 10^3/ul (0.3-0.9); MONOCYTES % 10.4 % (0.0-11.0); NEUTROPHIL # 3.4 10^3/ul (1.6-7.5); NEUTROPHILS % 72.9 % (39.0-77.0); PLATELET COUNT 55 10^3/UL (140-415); RED BLOOD COUNT 2.81 10^6/ul (4.20-5.40); RED CELL DISTRIBUTION WIDTH 19.8 % (11.5-14.5)
[2018-06-17 06:19] LABS: POSITIVE DIFF @See below
[2018-06-17 06:20] LABS: HEMOGLOBIN 6.6 g/dl (12.0-16.0)
[2018-06-17 06:45] LABS: ANION GAP 7 (5-13); BLOOD UREA NITROGEN 69 mg/dl (7-20); CALCIUM 8.6 mg/dl (8.4-10.2); CARBON DIOXIDE 32 mmol/L (21-31); CHLORIDE 100 mmol/L (97-110); CREATININE 2.07 mg/dl (0.44-1.00); GLUCOSE 171 mg/dl (70-220); MAGNESIUM 1.8 mg/dl (1.7-2.5); PHOSPHORUS 2.8 mg/dl (2.5-4.9); POTASSIUM 4.2 mmol/L (3.5-5.1); SODIUM 139 mmol/L (135-144)
[2018-06-17] MEDS: FUROSEMIDE 40 MG INJ IV ×2 (06:56→17:18)
[2018-06-17] MEDS: FLUTICASONE/VILANTEROL 100-25 INH (08:13)
[2018-06-17] MEDS: CLOTRIMAZOLE 1% 30 GM CR TOP ×2 (08:14→20:05)
[2018-06-17] MEDS: METOPROLOL 50 MG TAB PO ×2 (08:14→20:04)
[2018-06-17] MEDS: INSULIN ASPART [NOVOLOG] 3 ML PEN SC ×4 (08:21→20:04)
[2018-06-17] MEDS: SOD CHLORIDE 0.9% 250 ML IV* (13:51)
[2018-06-17 16:56] LABS: IMMEDIATE SPIN CROSSMATCH 1 1
[2018-06-17] MEDS: HYDROCODONE/APAP (5/325) TAB PO (23:01)
[2018-06-18] MEDS: ALBUTEROL/IPRATROPIUM (NEB) 3 ML AMP HHN ×6 (01:59→21:51)
[2018-06-18 06:35] LABS: ADD MAN DIFF? NO
[2018-06-18 06:49] LABS: WHITE BLOOD COUNT 4.1 10^3/ul (4.8-10.8)
[2018-06-18 06:49] LABS: ABNORMAL IP MESSAGE 1; BASOPHILS % 0.2 % (0.0-2.0); EOSINOPHILS # 0.1 10^3/ul (0.0-0.5); EOSINOPHILS % 1.7 % (0.0-7.0); HEMATOCRIT 23.6 % (37.0-47.0); HEMOGLOBIN 7.3 g/dl (12.0-16.0); LYMPHOCYTES # 0.7 10^3/ul (0.8-2.9); LYMPHOCYTES % 16.3 % (15.0-51.0); MEAN CORPUSCULAR HEMOGLOBIN 24.3 pg (29.0-33.0); MEAN CORPUSCULAR HGB CONC 30.9 g/dl (32.0-37.0); MEAN CORPUSCULAR VOLUME 78.7 fl (82.0-101.0); MONOCYTE # 0.4 10^3/ul (0.3-0.9); MONOCYTES % 9.5 % (0.0-11.0); NEUTROPHIL # 2.9 10^3/ul (1.6-7.5); NEUTROPHILS % 71.1 % (39.0-77.0); PLATELET COUNT 71 10^3/UL (140-415); RED CELL DISTRIBUTION WIDTH 20.3 % (11.5-14.5)
[2018-06-18] MEDS: FUROSEMIDE 40 MG INJ IV ×2 (06:55→17:32)
[2018-06-18 07:07] LABS: ANION GAP 8 (5-13); BLOOD UREA NITROGEN 69 mg/dl (7-20); CALCIUM 8.5 mg/dl (8.4-10.2); CARBON DIOXIDE 32 mmol/L (21-31); CHLORIDE 102 mmol/L (97-110); CREATININE 2.06 mg/dl (0.44-1.00); GLUCOSE 222 mg/dl (70-220); MAGNESIUM 1.8 mg/dl (1.7-2.5); PHOSPHORUS 2.9 mg/dl (2.5-4.9); POTASSIUM 4.3 mmol/L (3.5-5.1); SODIUM 142 mmol/L (135-144)
[2018-06-18 07:12] LABS: POSITIVE DIFF @See below
[2018-06-18] MEDS: CLOTRIMAZOLE 1% 30 GM CR TOP ×2 (08:13→21:00)
[2018-06-18] MEDS: FLUTICASONE/VILANTEROL 100-25 INH (08:13)
[2018-06-18] MEDS: METOPROLOL 50 MG TAB PO ×2 (08:16→20:37)
[2018-06-18] MEDS: INSULIN ASPART [NOVOLOG] 3 ML PEN SC ×4 (08:21→20:52)
[2018-06-18] MEDS: HYDROCODONE/APAP (5/325) TAB PO (20:37)
[2018-06-19] MEDS: ALBUTEROL/IPRATROPIUM (NEB) 3 ML AMP HHN ×3 (01:54→08:12)
[2018-06-19] MEDS: HYDROCODONE/APAP (5/325) TAB PO (03:41)
[2018-06-19] MEDS: FUROSEMIDE 40 MG INJ IV ×2 (06:57→18:54)
[2018-06-19] MEDS: INSULIN ASPART [NOVOLOG] 3 ML PEN SC ×4 (07:47→20:42)
[2018-06-19] MEDS: FLUTICASONE/VILANTEROL 100-25 INH (08:27)
[2018-06-19] MEDS: CLOTRIMAZOLE 1% 30 GM CR TOP ×3 (08:28→20:49)
[2018-06-19] MEDS: METOPROLOL 50 MG TAB PO ×2 (08:28→20:41)
[2018-06-19] MEDS: METOLAZONE 2.5 MG TAB PO (10:06)
[2018-06-20] MEDS: HYDROCODONE/APAP (5/325) TAB PO (00:32)
[2018-06-20 05:29] LABS: ADD MAN DIFF? NO
[2018-06-20 05:42] LABS: WHITE BLOOD COUNT 5.1 10^3/ul (4.8-10.8)
[2018-06-20 05:42] LABS: ABNORMAL IP MESSAGE 1; BASOPHILS % 0.2 % (0.0-2.0); EOSINOPHILS # 0.1 10^3/ul (0.0-0.5); LYMPHOCYTES # 0.9 10^3/ul (0.8-2.9); LYMPHOCYTES % 17.1 % (15.0-51.0); MEAN CORPUSCULAR HEMOGLOBIN 24.1 pg (29.0-33.0); MEAN CORPUSCULAR HGB CONC 30.5 g/dl (32.0-37.0); MEAN CORPUSCULAR VOLUME 79.1 fl (82.0-101.0); MEAN PLATELET VOLUME 12.2 fl (7.4-10.4); MONOCYTE # 0.5 10^3/ul (0.3-0.9); MONOCYTES % 9.8 % (0.0-11.0); NEUTROPHIL # 3.6 10^3/ul (1.6-7.5); NEUTROPHILS % 70.1 % (39.0-77.0); PLATELET COUNT 122 10^3/UL (140-415); RED BLOOD COUNT 2.53 10^6/ul (4.20-5.40); RED CELL DISTRIBUTION WIDTH 20.7 % (11.5-14.5)
[2018-06-20] MEDS: FUROSEMIDE 40 MG INJ IV ×2 (05:51→18:29)
[2018-06-20] MEDS: ALTEPLASE (CATHFLO) 2 MG INJ CATHETER (06:01)
[2018-06-20 06:09] LABS: HEMOGLOBIN 6.1 g/dl (12.0-16.0); POSITIVE DIFF @See below
[2018-06-20 06:11] LABS: ANION GAP 10 (5-13); BLOOD UREA NITROGEN 77 mg/dl (7-20); CALCIUM 8.7 mg/dl (8.4-10.2); CARBON DIOXIDE 35 mmol/L (21-31); CHLORIDE 97 mmol/L (97-110); CREATININE 1.98 mg/dl (0.44-1.00); GLUCOSE 176 mg/dl (70-220); MAGNESIUM 1.7 mg/dl (1.7-2.5); SODIUM 142 mmol/L (135-144)
[2018-06-20 07:45] LABS: HEMATOCRIT 25.1 % (37.0-47.0); HEMOGLOBIN 7.5 g/dl (12.0-16.0)
[2018-06-20] MEDS: METOLAZONE 2.5 MG TAB PO (08:46)
[2018-06-20] MEDS: METOPROLOL 50 MG TAB PO ×2 (08:47→20:52)
[2018-06-20] MEDS: CLOTRIMAZOLE 1% 30 GM CR TOP ×2 (08:48→20:51)
[2018-06-20] MEDS: INSULIN ASPART [NOVOLOG] 3 ML PEN SC ×4 (08:50→20:57)
[2018-06-20] MEDS: FLUTICASONE/VILANTEROL 100-25 INH (10:04)
[2018-06-20] MEDS: ALBUTEROL/IPRATROPIUM (NEB) 3 ML AMP HHN ×4 (11:00→20:07)
[2018-06-20] MEDS: METHYLPREDNISOLONE 40 MG INJ IV ×2 (14:41→21:00)
[2018-06-20] MEDS: BALSAM PERU/CASTOR OIL 60 GM TUBE TOP (20:51)
[2018-06-21] MEDS: ALBUTEROL/IPRATROPIUM (NEB) 3 ML AMP HHN ×4 (02:23→19:57)
[2018-06-21] MEDS: METHYLPREDNISOLONE 40 MG INJ IV ×3 (05:38→21:16)
[2018-06-21] MEDS: FUROSEMIDE 40 MG INJ IV ×2 (05:38→18:14)
[2018-06-21 06:43] LABS: ADD MAN DIFF? NO
[2018-06-21 06:54] LABS: ABNORMAL IP MESSAGE 1; HEMATOCRIT 25.9 % (37.0-47.0); HEMOGLOBIN 7.9 g/dl (12.0-16.0); LYMPHOCYTES # 0.5 10^3/ul (0.8-2.9); LYMPHOCYTES % 10.5 % (15.0-51.0); MEAN CORPUSCULAR HEMOGLOBIN 23.7 pg (29.0-33.0); MEAN CORPUSCULAR HGB CONC 30.5 g/dl (32.0-37.0); MEAN CORPUSCULAR VOLUME 77.8 fl (82.0-101.0); MONOCYTE # 0.1 10^3/ul (0.3-0.9); MONOCYTES % 1.9 % (0.0-11.0); NEUTROPHIL # 3.7 10^3/ul (1.6-7.5); NEUTROPHILS % 87.1 % (39.0-77.0); PLATELET COUNT 163 10^3/UL (140-415); RED BLOOD COUNT 3.33 10^6/ul (4.20-5.40); RED CELL DISTRIBUTION WIDTH 21.1 % (11.5-14.5)
[2018-06-21 06:54] LABS: WHITE BLOOD COUNT 4.3 10^3/ul (4.8-10.8)
[2018-06-21 07:02] LABS: POSITIVE DIFF @See below
[2018-06-21 07:17] LABS: ANION GAP 12 (5-13); BLOOD UREA NITROGEN 82 mg/dl (7-20); CALCIUM 9.3 mg/dl (8.4-10.2); CARBON DIOXIDE 33 mmol/L (21-31); CHLORIDE 96 mmol/L (97-110); CREATININE 1.98 mg/dl (0.44-1.00); GLUCOSE 260 mg/dl (70-220); MAGNESIUM 1.8 mg/dl (1.7-2.5); PHOSPHORUS 3.5 mg/dl (2.5-4.9); POTASSIUM 4.3 mmol/L (3.5-5.1); SODIUM 141 mmol/L (135-144)
[2018-06-21] MEDS: INSULIN ASPART [NOVOLOG] 3 ML PEN SC ×5 (08:29→22:15)
[2018-06-21] MEDS: FLUTICASONE/VILANTEROL 100-25 INH (10:27)
[2018-06-21] MEDS: METOPROLOL 50 MG TAB PO ×3 (10:28→21:00)
[2018-06-21] MEDS: METOLAZONE 2.5 MG TAB PO (10:29)
[2018-06-21] MEDS: CLOTRIMAZOLE 1% 30 GM CR TOP ×2 (10:31→20:44)
[2018-06-21] MEDS: BALSAM PERU/CASTOR OIL 60 GM TUBE TOP ×2 (10:31→20:44)
[2018-06-21 15:23] LABS: PROTIME 17.3 Sec (11.9-14.9); PT RATIO 1.4
[2018-06-21 15:24] LABS: PARTIAL THROMBOPLASTIN TIME 33.7 Sec (23.0-35.0)
[2018-06-21] MEDS: LIDOCAINE 1% (MPF) 5 ML VIAL (17:50)
[2018-06-22] MEDS: ALBUTEROL/IPRATROPIUM (NEB) 3 ML AMP HHN ×4 (02:20→20:39)
[2018-06-22] MEDS: METHYLPREDNISOLONE 40 MG INJ IV (05:18)
[2018-06-22] MEDS: INSULIN ASPART [NOVOLOG] 3 ML PEN SC ×7 (05:23→21:00)
[2018-06-22] MEDS: FUROSEMIDE 40 MG INJ IV (05:26)
[2018-06-22 06:17] LABS: ADD MAN DIFF? NO
[2018-06-22 06:23] LABS: ABNORMAL IP MESSAGE 1; HEMATOCRIT 25.9 % (37.0-47.0); HEMOGLOBIN 8.1 g/dl (12.0-16.0); LYMPHOCYTES # 0.4 10^3/ul (0.8-2.9); LYMPHOCYTES % 7.1 % (15.0-51.0); MEAN CORPUSCULAR HEMOGLOBIN 23.8 pg (29.0-33.0); MEAN CORPUSCULAR HGB CONC 31.3 g/dl (32.0-37.0); MEAN CORPUSCULAR VOLUME 76.2 fl (82.0-101.0); MEAN PLATELET VOLUME 12.4 fl (7.4-10.4); MONOCYTE # 0.2 10^3/ul (0.3-0.9); MONOCYTES % 3.7 % (0.0-11.0); NEUTROPHIL # 4.7 10^3/ul (1.6-7.5); NEUTROPHILS % 88.8 % (39.0-77.0); PLATELET COUNT 201 10^3/UL (140-415); RED CELL DISTRIBUTION WIDTH 21.3 % (11.5-14.5)
[2018-06-22 06:23] LABS: WHITE BLOOD COUNT 5.3 10^3/ul (4.8-10.8)
[2018-06-22 06:26] LABS: POSITIVE DIFF @See below
[2018-06-22 06:56] LABS: ANION GAP 9 (5-13); BLOOD UREA NITROGEN 90 mg/dl (7-20); CALCIUM 9.6 mg/dl (8.4-10.2); CARBON DIOXIDE 34 mmol/L (21-31); CHLORIDE 98 mmol/L (97-110); CREATININE 2.12 mg/dl (0.44-1.00); GLUCOSE 316 mg/dl (70-220); MAGNESIUM 1.9 mg/dl (1.7-2.5); PHOSPHORUS 3.7 mg/dl (2.5-4.9); POTASSIUM 4.2 mmol/L (3.5-5.1); SODIUM 141 mmol/L (135-144)
[2018-06-22] MEDS: FLUTICASONE/VILANTEROL 100-25 INH (08:56)
[2018-06-22] MEDS: METOPROLOL 50 MG TAB PO ×2 (08:57→21:29)
[2018-06-22] MEDS: CLOTRIMAZOLE 1% 30 GM CR TOP ×2 (08:58→21:33)
[2018-06-22] MEDS: BALSAM PERU/CASTOR OIL 60 GM TUBE TOP ×2 (08:58→21:33)
[2018-06-22] MEDS: AZITHROMYCIN 250 MG TAB PO (13:12)
[2018-06-22] MEDS: INSULIN GLARGINE [LANTus] (100 UNITS/ML) SYG SC ×2 (13:12→21:32)
[2018-06-22 15:34] LABS: ADD UMIC YES; UR ASCORBIC ACID NEGATIVE (NEGATIVE); UR BILIRUBIN (Dip) NEGATIVE (NEGATIVE); UR BLOOD (Dip) 1+ mg/dL (NEGATIVE); UR CLARITY SLIGHTLY CLOUDY (CLEAR); UR COLOR YELLOW (YELLOW); UR GLUCOSE (Dip) NEGATIVE (NEGATIVE); UR KETONES (Dip) NEGATIVE (NEGATIVE); UR LEUKOCYTE ESTERASE (Dip) TRACE Leu/ul (NEGATIVE); UR NITRITE (Dip) NEGATIVE (NEGATIVE); UR RBC 1 /HPF (0-5); UR SPECIFIC GRAVITY (Dip) 1.009 (1.003-1.030); UR SQUAMOUS EPITHELIAL CELL FEW /HPF (FEW); UR TOTAL PROTEIN (Dip) NEGATIVE (NEGATIVE); UR UROBILINOGEN (Dip) NEGATIVE (NEGATIVE); UR WBC 5 /HPF (0-5)
[2018-06-22 15:55] LABS: SODIUM,URINE RANDOM 106 mmol/L (30-90)
[2018-06-22 15:55] LABS: CREATININE,URINE RANDOM 34.57 mg/dl (20-320)
[2018-06-23] MEDS: ALBUTEROL/IPRATROPIUM (NEB) 3 ML AMP HHN ×4 (02:46→20:23)
[2018-06-23 06:04] LABS: ADD MAN DIFF? NO
[2018-06-23 06:15] LABS: ABNORMAL IP MESSAGE 1; EOSINOPHILS % 0.1 % (0.0-7.0); HEMATOCRIT 26.6 % (37.0-47.0); HEMOGLOBIN 8.1 g/dl (12.0-16.0); LYMPHOCYTES # 0.8 10^3/ul (0.8-2.9); LYMPHOCYTES % 11.8 % (15.0-51.0); MEAN CORPUSCULAR HEMOGLOBIN 23.5 pg (29.0-33.0); MEAN CORPUSCULAR HGB CONC 30.5 g/dl (32.0-37.0); MEAN CORPUSCULAR VOLUME 77.3 fl (82.0-101.0); MEAN PLATELET VOLUME 11.8 fl (7.4-10.4); MONOCYTE # 0.5 10^3/ul (0.3-0.9); MONOCYTES % 6.9 % (0.0-11.0); NEUTROPHIL # 5.4 10^3/ul (1.6-7.5); NEUTROPHILS % 80.8 % (39.0-77.0); PLATELET COUNT 181 10^3/UL (140-415); RED BLOOD COUNT 3.44 10^6/ul (4.20-5.40); RED CELL DISTRIBUTION WIDTH 21.9 % (11.5-14.5)
[2018-06-23 06:15] LABS: WHITE BLOOD COUNT 6.7 10^3/ul (4.8-10.8)
[2018-06-23 06:26] LABS: POSITIVE DIFF @See below
[2018-06-23 07:04] LABS: ANION GAP 11 (5-13); BLOOD UREA NITROGEN 93 mg/dl (7-20); CALCIUM 9.3 mg/dl (8.4-10.2); CARBON DIOXIDE 36 mmol/L (21-31); CHLORIDE 96 mmol/L (97-110); CREATININE 2.22 mg/dl (0.44-1.00); GLUCOSE 82 mg/dl (70-220); MAGNESIUM 1.9 mg/dl (1.7-2.5); PHOSPHORUS 3.7 mg/dl (2.5-4.9); POTASSIUM 3.8 mmol/L (3.5-5.1); SODIUM 143 mmol/L (135-144)
[2018-06-23] MEDS: INSULIN ASPART [NOVOLOG] 3 ML PEN SC ×7 (07:35→21:00)
[2018-06-23] MEDS: AZITHROMYCIN 250 MG TAB PO (08:54)
[2018-06-23] MEDS: FLUTICASONE/VILANTEROL 100-25 INH (08:54)
[2018-06-23] MEDS: METOPROLOL 50 MG TAB PO ×2 (08:55→20:59)
[2018-06-23] MEDS: BALSAM PERU/CASTOR OIL 60 GM TUBE TOP ×2 (08:56→21:00)
[2018-06-23] MEDS: CLOTRIMAZOLE 1% 30 GM CR TOP ×2 (08:56→21:00)
[2018-06-23] MEDS: GLUCOSE GEL 15 GRAM TUBE PO ×2 (09:08→09:45)
[2018-06-23] MEDS ORDERED: INSULIN GLARGINE [LANTus] (100 UNITS/ML) SYG SC (10:00)
[2018-06-23 15:43] LABS: CREATININE, RANDOM URINE 36 mg/dL (20-275); MICROALBUMIN 2.2 mg/dL; MICROALBUMIN/CREATININE RATIO 61 (<30)
[2018-06-23] MEDS: ACETAMINOPHEN 325 MG TAB PO ×2 (19:06→22:10)
[2018-06-24] MEDS: ALBUTEROL/IPRATROPIUM (NEB) 3 ML AMP HHN ×4 (02:16→21:41)
[2018-06-24] MEDS: INSULIN ASPART [NOVOLOG] 3 ML PEN SC ×7 (08:00→21:35)
[2018-06-24] MEDS: INSULIN GLARGINE [LANTus] (100 UNITS/ML) SYG SC ×2 (08:00→08:27)
[2018-06-24] MEDS: FLUTICASONE/VILANTEROL 100-25 INH (08:28)
[2018-06-24] MEDS: METOPROLOL 50 MG TAB PO ×3 (08:30→21:34)
[2018-06-24] MEDS: BALSAM PERU/CASTOR OIL 60 GM TUBE TOP ×2 (08:31→21:36)
[2018-06-24] MEDS: CLOTRIMAZOLE 1% 30 GM CR TOP ×2 (08:31→21:00)
[2018-06-24] MEDS: AZITHROMYCIN 250 MG TAB PO ×2 (08:31→09:34)
[2018-06-24 14:40] LABS: ADD MAN DIFF? NO
[2018-06-24 14:43] LABS: ABNORMAL IP MESSAGE 1; BASOPHILS % 0.2 % (0.0-2.0); EOSINOPHILS % 0.9 % (0.0-7.0); HEMATOCRIT 24.9 % (37.0-47.0); HEMOGLOBIN 7.6 g/dl (12.0-16.0); LYMPHOCYTES # 0.8 10^3/ul (0.8-2.9); LYMPHOCYTES % 18.3 % (15.0-51.0); MEAN CORPUSCULAR HEMOGLOBIN 23.9 pg (29.0-33.0); MEAN CORPUSCULAR HGB CONC 30.5 g/dl (32.0-37.0); MEAN CORPUSCULAR VOLUME 78.3 fl (82.0-101.0); MEAN PLATELET VOLUME 12.3 fl (7.4-10.4); MONOCYTE # 0.5 10^3/ul (0.3-0.9); MONOCYTES % 10.6 % (0.0-11.0); NEUTROPHIL # 3.1 10^3/ul (1.6-7.5); NEUTROPHILS % 69.8 % (39.0-77.0); PLATELET COUNT 174 10^3/UL (140-415); RED BLOOD COUNT 3.18 10^6/ul (4.20-5.40); RED CELL DISTRIBUTION WIDTH 21.3 % (11.5-14.5)
[2018-06-24 14:43] LABS: WHITE BLOOD COUNT 4.4 10^3/ul (4.8-10.8)
[2018-06-24 14:44] LABS: POSITIVE DIFF @See below
[2018-06-24 15:03] LABS: ANION GAP 11 (5-13); BLOOD UREA NITROGEN 95 mg/dl (7-20); CALCIUM 8.8 mg/dl (8.4-10.2); CARBON DIOXIDE 31 mmol/L (21-31); CHLORIDE 99 mmol/L (97-110); CREATININE 2.17 mg/dl (0.44-1.00); GLUCOSE 194 mg/dl (70-220); MAGNESIUM 2.1 mg/dl (1.7-2.5); PHOSPHORUS 3.5 mg/dl (2.5-4.9); POTASSIUM 3.9 mmol/L (3.5-5.1); SODIUM 141 mmol/L (135-144)
[2018-06-25] MEDS: ALBUTEROL/IPRATROPIUM (NEB) 3 ML AMP HHN ×4 (01:21→19:38)
[2018-06-25] MEDS: INSULIN ASPART [NOVOLOG] 3 ML PEN SC ×7 (08:55→21:00)
[2018-06-25] MEDS: INSULIN GLARGINE [LANTus] (100 UNITS/ML) SYG SC (08:56)
[2018-06-25] MEDS: FLUTICASONE/VILANTEROL 100-25 INH (08:57)
[2018-06-25] MEDS: METOPROLOL 50 MG TAB PO ×2 (08:58→21:09)
[2018-06-25] MEDS: AZITHROMYCIN 250 MG TAB PO (08:58)
[2018-06-25] MEDS: CLOTRIMAZOLE 1% 30 GM CR TOP ×2 (08:59→21:00)
[2018-06-25] MEDS: BALSAM PERU/CASTOR OIL 60 GM TUBE TOP ×2 (08:59→21:00)
[2018-06-25 15:08] LABS: ADD MAN DIFF? NO
[2018-06-25 15:11] LABS: WHITE BLOOD COUNT 4.9 10^3/ul (4.8-10.8)
[2018-06-25 15:11] LABS: ABNORMAL IP MESSAGE 1; BASOPHILS % 0.2 % (0.0-2.0); EOSINOPHILS # 0.1 10^3/ul (0.0-0.5); EOSINOPHILS % 1.6 % (0.0-7.0); HEMATOCRIT 25.7 % (37.0-47.0); HEMOGLOBIN 7.9 g/dl (12.0-16.0); LYMPHOCYTES # 0.9 10^3/ul (0.8-2.9); LYMPHOCYTES % 18.5 % (15.0-51.0); MEAN CORPUSCULAR HGB CONC 30.7 g/dl (32.0-37.0); MEAN CORPUSCULAR VOLUME 78.1 fl (82.0-101.0); MEAN PLATELET VOLUME 11.5 fl (7.4-10.4); MONOCYTE # 0.5 10^3/ul (0.3-0.9); MONOCYTES % 10.7 % (0.0-11.0); NEUTROPHIL # 3.3 10^3/ul (1.6-7.5); NEUTROPHILS % 68.6 % (39.0-77.0); PLATELET COUNT 172 10^3/UL (140-415); RED BLOOD COUNT 3.29 10^6/ul (4.20-5.40); RED CELL DISTRIBUTION WIDTH 21.5 % (11.5-14.5)
[2018-06-25 15:17] LABS: POSITIVE DIFF @See below
[2018-06-25 15:31] LABS: ANION GAP 8 (5-13); BLOOD UREA NITROGEN 88 mg/dl (7-20); CARBON DIOXIDE 36 mmol/L (21-31); CHLORIDE 98 mmol/L (97-110); CREATININE 2.04 mg/dl (0.44-1.00); GLUCOSE 95 mg/dl (70-220); MAGNESIUM 2.1 mg/dl (1.7-2.5); PHOSPHORUS 3.3 mg/dl (2.5-4.9); POTASSIUM 3.9 mmol/L (3.5-5.1); SODIUM 142 mmol/L (135-144)
[2018-06-25] MEDS: FUROSEMIDE 40 MG INJ IV (17:38)
[2018-06-25] MEDS: FUROSEMIDE 40 MG TAB PO (18:43)
[2018-06-25] MEDS: ZOLPIDEM 5 MG TAB PO (21:09)
[2018-06-26] MEDS: ALBUTEROL/IPRATROPIUM (NEB) 3 ML AMP HHN ×4 (01:49→20:00)
[2018-06-26] MEDS: FUROSEMIDE 40 MG TAB PO ×2 (05:27→17:40)
[2018-06-26] MEDS: INSULIN ASPART [NOVOLOG] 3 ML PEN SC ×6 (08:00→17:42)
[2018-06-26] MEDS: METOLAZONE 2.5 MG TAB PO (09:40)
[2018-06-26] MEDS: AZITHROMYCIN 250 MG TAB PO (09:40)
[2018-06-26] MEDS: FLUTICASONE/VILANTEROL 100-25 INH (09:40)
[2018-06-26] MEDS: METOPROLOL 50 MG TAB PO (09:41)
[2018-06-26] MEDS: INSULIN GLARGINE [LANTus] (100 UNITS/ML) SYG SC (09:43)
[2018-06-26] MEDS: BALSAM PERU/CASTOR OIL 60 GM TUBE TOP (13:55)
[2018-06-26] MEDS: CLOTRIMAZOLE 1% 30 GM CR TOP (13:55)
[2018-06-26 13:59] LABS: ADD MAN DIFF? NO
[2018-06-26 14:01] LABS: WHITE BLOOD COUNT 4.7 10^3/ul (4.8-10.8)
[2018-06-26 14:01] LABS: ABNORMAL IP MESSAGE 1; BASOPHILS % 0.2 % (0.0-2.0); EOSINOPHILS # 0.1 10^3/ul (0.0-0.5); EOSINOPHILS % 2.1 % (0.0-7.0); HEMATOCRIT 27.5 % (37.0-47.0); HEMOGLOBIN 8.3 g/dl (12.0-16.0); LYMPHOCYTES % 21.9 % (15.0-51.0); MEAN CORPUSCULAR HEMOGLOBIN 23.4 pg (29.0-33.0); MEAN CORPUSCULAR HGB CONC 30.2 g/dl (32.0-37.0); MEAN CORPUSCULAR VOLUME 77.5 fl (82.0-101.0); MEAN PLATELET VOLUME 10.8 fl (7.4-10.4); MONOCYTE # 0.5 10^3/ul (0.3-0.9); MONOCYTES % 9.5 % (0.0-11.0); NEUTROPHIL # 3.1 10^3/ul (1.6-7.5); NEUTROPHILS % 65.9 % (39.0-77.0); PLATELET COUNT 154 10^3/UL (140-415); RED BLOOD COUNT 3.55 10^6/ul (4.20-5.40); RED CELL DISTRIBUTION WIDTH 21.4 % (11.5-14.5)
[2018-06-26 14:02] LABS: POSITIVE DIFF @See below
[2018-06-26 14:33] LABS: ANION GAP 9 (5-13); BLOOD UREA NITROGEN 96 mg/dl (7-20); CALCIUM 9.3 mg/dl (8.4-10.2); CARBON DIOXIDE 34 mmol/L (21-31); CHLORIDE 99 mmol/L (97-110); CREATININE 1.98 mg/dl (0.44-1.00); GLUCOSE 56 mg/dl (70-220); MAGNESIUM 2.2 mg/dl (1.7-2.5); PHOSPHORUS 3.6 mg/dl (2.5-4.9); POTASSIUM 3.9 mmol/L (3.5-5.1); SODIUM 142 mmol/L (135-144)
== END 2018-06-26 19:08 | disposition hospice, home (50) | DRG 871 ==
LOC: 6WM 06-11 07:55 → ICU 06-05 10:12 → PP2 06-19 15:13 → E/R 14:32 → PP2 06-19 23:11 → TEL 17:17
PROC: 5A1D70Z Performance of Urinary Filtration, Intermittent, Less than 6 Hours Per Day (ICD-10-PCS; 2018-06-05)
PROC: 02HV33Z Insertion of Infusion Device into Superior Vena Cava, Percutaneous Approach (ICD-10-PCS; principal; 2018-06-06)
PROC: 30233N1 Transfusion of Nonautologous Red Blood Cells into Peripheral Vein, Percutaneous Approach (ICD-10-PCS; 2018-06-12)
PROC: 0W9B3ZZ Drainage of Left Pleural Cavity, Percutaneous Approach (ICD-10-PCS; 2018-06-21)
DX: A41.9 Sepsis, unspecified organism (principal); J18.9 Pneumonia, unspecified organism; I50.33 Acute on chronic diastolic (congestive) heart failure; J96.01 Acute respiratory failure with hypoxia; G92 Toxic encephalopathy; I13.0 Hypertensive heart and chronic kidney disease with heart failure and stage 1 through stage 4 chronic kidney disease, or unspecified chronic kidney disease; J44.1 Chronic obstructive pulmonary disease with (acute) exacerbation; N39.0 Urinary tract infection, site not specified; J90 Pleural effusion, not elsewhere classified; L03.116 Cellulitis of left lower limb; N17.9 Acute kidney failure, unspecified; L03.115 Cellulitis of right lower limb; B37.49 Other urogenital candidiasis; N18.4 Chronic kidney disease, stage 4 (severe); D75.82 Heparin induced thrombocytopenia (HIT); R41.0 Disorientation, unspecified; Z66 Do not resuscitate; Z87.891 Personal history of nicotine dependence; Z68.39 Body mass index [BMI] 39.0-39.9, adult; D64.9 Anemia, unspecified; I48.91 Unspecified atrial fibrillation; Z86.711 Personal history of pulmonary embolism; Z79.02 Long term (current) use of antithrombotics/antiplatelets; I35.0 Nonrheumatic aortic (valve) stenosis; E66.01 Morbid (severe) obesity due to excess calories; E87.5 Hyperkalemia; E11.65 Type 2 diabetes mellitus with hyperglycemia; B95.4 Other streptococcus as the cause of diseases classified elsewhere; B96.89 Other specified bacterial agents as the cause of diseases classified elsewhere; S30.91XA Unspecified superficial injury of lower back and pelvis, initial encounter; R31.9 Hematuria, unspecified; R60.1 Generalized edema
CPT/HCPCS: 32555; 36430; 36569; 36600; 71045; 71250; 76937; 80048; 80053; 80162; 81001; 81003; 82043; 82803; 82962; 83036; 83605; 83735; 83880; 84100; 84155; 84300; 84484; 85014; 85018; 85025; 85610; 85730; 86706; 86850; 86900; 86901; 86920; 87040; 87070; 87081; 87086; 87340; 90935; 92526; 92610; 93005; 93970; 93971; 94640; 94660; 94664; 96365; 96375; 97110; 97162; 97164; 97530; 99291-25